=== PATIENT | female | born 1980 | race Caucasian/White ===

== ENCOUNTER 2017-02-04 19:32 | Emergency (ER) | payer BC, OTHER ==
[~2017-02-04] VITALS: Ht 170.2 cm; Wt 63.9 kg
[~2017-02-04 19:32] MED LIST: ACET-1256 PO; CLON2TAB3 PO; LOPE-41 PO; MTHI50 SQ; NRN300 PO; SERT-234 PO; [UNRECOGNIZED DRUG - CODE] PO
[2017-02-04 19:38] VITALS: TEMP 36.9; Ht 170.2 cm; Wt 63.9 kg
[2017-02-04 20:17] VITALS: O2SAT 95
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
[2017-02-04 20:34] LABS: PREG INTERNAL NEGATIVE QC NEG CLEAR BACKGROUND; PREG INTERNAL POSITIVE QC POS CONTROL LINE
[2017-02-04 20:45] LABS: BUN/CREATININE RATIO 10.3 (10-20); CALCIUM 8.6 mg/dl (8.5-10.1); CREATININE 0.51 mg/dl (0.60-1.20); POTASSIUM 3.7 mmol/L (3.5-5.1)
[2017-02-04] MEDS ORDERED: DIVA250T4 PO (21:36)
[2017-02-04] MEDS ORDERED: HYDR-5688 PO (21:36)
[2017-02-04] MEDS ORDERED: SULF500T2 PO (21:36)
[2017-02-04] MEDS ORDERED: METH1TAB81 PO (21:36)
[2017-02-04 23:37] VITALS: O2SAT 94
[2017-02-04 23:52] VITALS: PULSE 95
[2017-02-04 23:59] VITALS: BP 102/75
== END 2017-02-05 00:01 | disposition home or self-care (01) ==
LOC: EDBD 19:32 → C.EDB 19:36
DX: F10.129 Alcohol abuse with intoxication, unspecified (principal); G35 Multiple sclerosis; C91.11 Chronic lymphocytic leukemia of B-cell type in remission; F17.200 Nicotine dependence, unspecified, uncomplicated; L40.50 Arthropathic psoriasis, unspecified; Z79.899 Other long term (current) drug therapy

== ENCOUNTER → 2017-04-24 | Outpatient (CLI) | payer BC ==
[~2017-04-24] MED LIST changes: +DIVA250T4 PO; +HYDR-5688 PO; +METH1TAB81 PO; -MTHI50 SQ; -NRN300 PO; +SULF500T2 PO; -[UNRECOGNIZED DRUG - CODE] PO
[2017-04-24 14:35] LABS: BASO % 0.1 %; BASO ABS # 0.01 K/uL (0-0.2); EOS ABS # 0.08 K/uL (0-0.5); HEMATOCRIT 41.7 % (37-47); HEMOGLOBIN 14.3 g/dL (12.0-16.0); IG# 0.02 K/uL (0.00-0.02); LYMPH % 31.8 %; LYMPH ABS # 2.48 K/uL (1.2-3.4); MEAN CELL VOLUME 93.3 fL (80-100); MEAN CORPUSCULAR HGB CONC 34.3 g/dl (32-36); MEAN PLATELET VOLUME 9.8 fL (7.4-10.4); MONO % 5.8 %; MONO ABS # 0.45 K/uL (0.11-0.59); NEUT ABS # 4.77 K/uL (1.4-6.5); PLATELET COUNT 310 K/uL (130-400); RED CELL DISTRIBUTION WIDTH CV 12.6 % (11.5-14.5); RED CELL DISTRIBUTION WIDTH SD 43.2 fL (36.4-46.3); WHITE BLOOD COUNT 7.81 K/uL (4.8-10.8)
[2017-04-24 15:01] LABS: ALT/SGPT 46 U/L (12-78); AST/SGOT 34 U/L (15-37); BLOOD UREA NITROGEN 7 mg/dl (7-18); CALCIUM 8.7 mg/dl (8.5-10.1); CARBON DIOXIDE 26 mmol/L (21-32); CREATININE 0.53 mg/dl (0.60-1.20); GLUCOSE 88 mg/dl (70-99); SODIUM 134 mmol/L (136-145)
[2017-04-24 15:07] LABS: ALBUMIN 3.8 gm/dl (3.4-5.0); TOTAL PROTEIN 7.5 gm/dl (6.4-8.2)
[2017-04-24 15:11] LABS: TRANSFERRIN 323 mg/dl (200-360)
== END | disposition home or self-care (01) ==
LOC: C.LAB 13:09
DX: M19.90 Unspecified osteoarthritis, unspecified site (principal); F39 Unspecified mood [affective] disorder; R53.83 Other fatigue; E83.52 Hypercalcemia; G35 Multiple sclerosis; Z51.81 Encounter for therapeutic drug level monitoring; Z79.899 Other long term (current) drug therapy

== ENCOUNTER 2018-10-18 16:38 | Inpatient (IN) ==
--- NOTE | 2018-10-18 16:54 | History & Physical Report ---
Date of Service October 18, 2018 Assessment & Plan (1) Premature rupture of membranes: Patient is a 38 yo at 38.4 wks with PROM/ SROM at term No signs of labor FHR reassuring h/o cerebral aneurysm and desires primary Csection, signed the informed consent Lunch at 1230 ( debra), h/o MS, Scoliosis: discussed with Anesthesiologist, plan for Csection after 20:00, epidural if able, if not General anesthesia All questions were answered (2) Cerebral aneurysm: (3) Multiple sclerosis affecting : History of Present Illness Chief Complaint: Leaking Primary Care Provider: Raf Krueger Jr, DO Patient is a 38 yo at 38.4 wks who was originally scheduled for Primary Csection on 10/24 due to h/o Cerebral aneurysm She felt LOF around 1345 and then had large gush at 1430, has brayan celar and about 2 cups of fludi since then No ctxs/VB/ Fever/chills/ N&V/ HENRY/ Change in vision Her has been complicated by 1) h/o MS 2) Cerebral aneurysm: 1.1x1.3 cm 3) h/o scoliosis; plan for epidural or GA, can not have spinal block 4) GBS + 5) Anxiety She is grossly ruptured and being admitted for Primary Csection as planned She understands the risks signed the consent in the office on 10/16/18 Allergies Allergy/AdvReac Type Severity Reaction Status Date / Time glatiramer (copolymer 1) Allergy Intermediate hives and Verified 10/11/18 10:15 rash at injection site mannitol Allergy Intermediate hives and Verified 10/11/18 10:15 rash at injection site latex Allergy Unknown RASH Verified 10/11/18 10:15 Home Medications Home Medications Medication Instructions Recorded Confirmed Type [id number] oil 1 tab PO QAM 06/26/18 10/11/18 History [ Gummy] acetaminophen [Tylenol Extra 1,000 mg PO Q6H PRN 07/26/18 10/11/18 History Strength] Patient History Medical History Acid reflux worsening with Anxiety History of tuberculosis "childhood" - cervical lymph nodes removed; per patient, retesting subsequently negative Intracranial aneurysm neurosurgery monitoring- "Cleared for delivery by whichever means the patient desires. No limitations" per neurosurgery 06/25/18 note but per patient, decision made for c/s to be safe Migraine Multiple sclerosis asymptomatic off medications currently; neurology monitoring Osteoarthritis Surgical History H/O colonoscopy History of open reduction and internal fixation (ORIF) procedure LEFT FIBULA [place] teeth extracted Family History Father Family history of diabetes mellitus Grandfather (Paternal) Family history of diabetes mellitus Uncle Family hx of colon cancer Grandmother (Maternal) Stomach cancer Social History Preferred Language: [place] Communication Ability: Effective Consultant Required: No Beliefs That Will Affect Care: None marital status: Single Current Living Situation: Significant Other Current Living Situation Comment: [place] and stepchildren (part-time) Feels Safe at Home: Yes Smoking Status: Former smoker Tobacco Type: cigarettes ; Second Hand Exposure: Yes (mom smoked) ; Hx Alcohol Use: No Hx Substance Use: No OB History 7 months IUFD MOLD BUILDER History No h/o STD Review of Systems All systems reviewed & are unremarkable except as noted in HPI & below Physical Exam Gastrointestinal (Abdomen): normal bowel sounds, soft, nontender, no hepatosplenomegaly Percussion/Palpation: abdomen soft Abd: soft, nt, gravid Genitourinary: Grossly ruptured Cervix: closed, 50%, -3 Monitoring External Monitor 130's reactive Tocodynamometer Mild irregular ctxs, she does not feel them
[2018-10-18] MEDS ORDERED: CITRIC ACID/SODIUM CITRATE 15 ML UDC PO STA (16:59)
[2018-10-18] MEDS ORDERED: LACTATED RINGER'S 1,000 ML IV SCH ×2 (17:00→22:45)
[2018-10-18] MEDS ORDERED: CEFAZOLIN 2000MG 2,000 MG/15 ML SYR IV SCH (17:00)
[2018-10-18 17:31] LABS: Basophils # (auto) 0.01 K/uL (0-0.2); Basophils % (auto) 0.1 %; Eosinophils # (auto) 0.09 K/uL (0-0.5); Hematocrit (blood only) 33.3 % (37-47); Hemoglobin 11.7 g/dL (12.0-16.0); Immature Granulocytes # (auto) 0.02 K/uL (0.00-0.02); Immature Granulocytes % (auto) 0.2 %; Lymphocytes # (auto) 1.75 K/uL (1.2-3.4); Mean Corpuscular Volume 91.5 fL (80-100); Mean Platelet Volume 11.1 fL (7.4-10.4); Monocytes # (auto) 0.62 K/uL (0.11-0.59); Monocytes % (auto) 7.1 %; Neutrophils # (auto) 6.27 K/uL (1.4-6.5); Neutrophils % (auto) 71.6 %; Platelet Count 200 K/uL (130-400); RDW Coefficient of Variation 12.9 % (11.5-14.5); RDW Standard Deviation 43.2 fL (36.4-46.3); Red Blood Count 3.64 M/uL (4.2-5.4); White Blood Count 8.76 K/uL (4.8-10.8)
[2018-10-18 17:37] LABS: Mean Corpuscular Hgb Conc 35.1 g/dL (32-36)
[2018-10-18] MEDS ORDERED: LABETALOL HCL 100 MG TAB PO STA (17:41)
[2018-10-18 17:47] LABS: Alanine Aminotransferase 12 U/L (12-78); Albumin Level 2.3 gm/dl (3.4-5.0); Aspartate Aminotransferase 12 U/L (15-37); BUN Creatinine Ratio 12.7 (10-20); Blood Urea Nitrogen 5 mg/dl (7-18); Calcium 8.9 mg/dl (8.5-10.1); Carbon Dioxide 25 mmol/L (21-32); Chloride 107 mmol/L (98-107); Est GFR (African American) 149.6; Est GFR (Non-African American) 129.1; Glucose 111 mg/dl (70-99); Potassium 3.4 mmol/L (3.5-5.1); Sodium 140 mmol/L (136-145)
[2018-10-18 17:50] LABS: Albumin Globulin Ratio 0.7 (0.9-2); Alkaline Phosphatase 69 U/L (45-117); Bilirubin,Total 0.3 mg/dl (0.2-1); Globulin 3.5 gm/dl (2.5-4.0); Total Protein 5.8 gm/dl (6.4-8.2)
[2018-10-18] MEDS: LACTATED RINGER'S 1,000 ML IV SCH ×3 (18:14→21:02)
--- NOTE | 2018-10-18 18:24 | Anesthesiology Consultation ---
Date of Service October 18, 2018 Assessment & Plan Chart Review Chart Review: Acceptable Risk for Surgery, Acceptable Risk for Labor Epidural and Patient seen in Pre Admission Testing Consults Requested none ASA ASA3 Proposed Anesthesia Anesthesia Type: General and MAC Epidural Risk / Benefits Reviewed With: PT / POA / Parent / Guardian, Accepts Plan and Informed Consent Obtained History Height/Weight Height: 5 ft 7 in Weight: 87.543 kg Allergies Allergy/AdvReac Type Severity Reaction Status Date / Time glatiramer (copolymer 1) Allergy Intermediate hives and Verified 10/11/18 10:15 rash at injection site latex Allergy Intermediate RASH Verified 10/18/18 17:07 mannitol Allergy Intermediate hives and Verified 10/11/18 10:15 rash at injection site Medications Home Medications Medication Instructions Recorded Confirmed Last Taken [id number] oil 1 tab PO QAM 06/26/18 10/18/18 10/18/18 09:00 [ Gummy] Active Medications Generic Name Dose Route Start Last Admin Trade Name Freq PRN Reason Stop Dose Admin Lactated Ringer's 1,000 mls @ 150 mls/hr 10/18/18 17:49 10/18/18 18:14 Lr IV 11/17/18 17:48 150 mls/hr .[id number] LAURA Administration NPO Date Last Intake of Fluids: 10/18/18 Time Last Intake of Fluids: 16:00 Date Last Intake of Solids: 10/18/18 Time Last Intake of Solids: 12:30 Past Medical History Medical History Hx MRSA infection cultures negative as of last week PCOS (polycystic ovarian syndrome) Acid reflux worsening with Anxiety currently off meds; wants to start them again PP after ; was on Klonopin and Zoloft History of tuberculosis "childhood" - cervical lymph nodes removed; per patient, retesting subsequently negative Intracranial aneurysm neurosurgery monitoring- "Cleared for delivery by whichever means the patient desires. No limitations" per neurosurgery 06/25/18 note but per patient, decision made for c/s to be safe Migraine Multiple sclerosis asymptomatic off medications currently; neurology monitoring : diagnosed 9 years ago Osteoarthritis Exercise / Class Metabolic Activity III < 4 Walking/Shop/Light housework Past Family History Family History Father Family history of diabetes mellitus Grandfather (Paternal) Family history of diabetes mellitus Uncle Family hx of colon cancer Grandmother (Maternal) Stomach cancer Past Surgical History Surgical History H/O colonoscopy History of open reduction and internal fixation (ORIF) procedure LEFT FIBULA [place] teeth extracted Past Anesthesia History No Hx of Anesthesia Complications and No Family Hx of Anesthesia Complications History of PONV No Hx of PONV and No Hx of Motion Sickness Social History Smoking Status: Former smoker tobacco type: cigarettes Hx Alcohol Use: No Hx Substance Use: No substance use type: does not use Physical Exam Vital Signs Last Vital Signs Temp 37.0 C 10/18/18 17:25 Pulse 92 H 10/18/18 18:15 Resp 20 10/18/18 17:25 BP 140/94 10/18/18 18:15 Constitutional + obese ENMT Mouth: no dentition abnormality Thyromental Distance: < 3.5 Finger Breadths Mallampati Class: II Neck normal visual inspection and trachea midline; neck extension not limited Respiratory normal respiratory effort Auscultation: lungs clear to auscultation bilaterally Cardiovascular Rate/Rhythm: regular rate and regular rhythm Heart Sounds: no murmur Musculoskeletal Spine: lumbar spine normal to inspection; normal cervical ROM Neurologic moves all extremities Motor/Sensory: + sensory deficit (? paresthesias in the fingers) Psychiatric Orientation: alert and oriented x 3 Testing Laboratory Results 10/18/18 17:07 10/18/18 17:07
[2018-10-18] MEDS ORDERED: CITRIC ACID/SODIUM CITRATE 15 ML UDC ONE (19:27)
[2018-10-18] MEDS ORDERED: fentaNYL citrate 100 MCG/2 ML VIAL ONE (19:30)
[2018-10-18] MEDS ORDERED: OXYTOCIN 10 UNITS/ML VIAL ONE ×2 (20:37→22:08)
[2018-10-18] MEDS ORDERED: PHENYLEPHRINE 100MCG/ML 5ML SYR ONE (21:42)
[2018-10-18] MEDS ORDERED: LIDOCAINE/EPINEPHRINE 2% 1:200,000 20 ML SDV ONE (21:42)
[2018-10-18] MEDS ORDERED: MoRPHine SULFATE PF 1 MG/ML 10 ML AMP/VIAL ONE (22:01)
[2018-10-18] MEDS ORDERED: ONDANSETRON INJ 2 MG/ML 2 ML VIAL ONE (22:18)
[2018-10-18] MEDS ORDERED: DEXAMETHASONE SOD INJ 4 MG/ML VIAL ONE (22:19)
[2018-10-18] MEDS ORDERED: MIDAZOLAM HCL 1 MG/ML 2ML VIAL ONE (22:20)
[2018-10-18] MEDS ORDERED: BENZOCAINE 20% AER SPR 82.5 GM CAN EXT PRN (22:42)
[2018-10-18] MEDS ORDERED: DIPHTHERIA/TETANUS/PERTUSSIS 0.5 ML SYR/VIAL IM ONE (22:42)
[2018-10-18] MEDS ORDERED: MAGNESIUM HYDROXIDE SUSP 30 ML UDC PO PRN (22:42)
[2018-10-18] MEDS ORDERED: HYDROCORTISONE ACETATE 25 MG SUPP PR PRN (22:42)
[2018-10-18] MEDS ORDERED: MEASLES, MUMPS & RUBELLA VIRUS VIAL SQ ONE (22:42)
[2018-10-18] MEDS ORDERED: SUPERCREAM 0.870% 15 GM JAR EXT PRN (22:42)
[2018-10-18] MEDS ORDERED: SENNA 8.6 MG TAB PO PRN (22:42)
[2018-10-18] MEDS ORDERED: MoRPHine SULFATE PF 1 MG/ML 10 ML AMP/VIAL INT SPINAL ONE (22:49)
[2018-10-18] MEDS ORDERED: NALOXONE HCL 0.08 MG in SYRINGE 1.8 ML IV PRN (22:49)
[2018-10-18] MEDS ORDERED: KETOROLAC 30 MG/ML VIAL IV PRN (22:49)
[2018-10-18] MEDS ORDERED: NALBUPHINE HCL INJ 10 MG/ML AMP IV PRN (22:49)
[2018-10-18] MEDS ORDERED: ONDANSETRON INJ 2 MG/ML 2 ML VIAL IV PRN (22:49)
[2018-10-18] MEDS ORDERED: KETOROLAC 30 MG/ML VIAL ONE (22:49)
[2018-10-18] MEDS ORDERED: PROMETHAZINE HCL 25 MG in SODIUM CHLORIDE 0.9% 50 ML IV PRN (22:49)
[2018-10-18] MEDS ORDERED: LACTATED RINGER'S 500 ML IV PRN (22:49)
[2018-10-18] MEDS ORDERED: ePHEDrine sulfate 50 MG/ML AMP IV PRN (22:49)
[2018-10-18] MEDS ORDERED: NALOXONE HCL 1 MG in SODIUM CHLORIDE 0.9% 1000ML 1,000 ML IV PRN (22:49)
[2018-10-18] MEDS ORDERED: NALOXONE HCL 0.4 MG/1 ML VIAL/CARP IV PRN (22:49)
[2018-10-18] MEDS ORDERED: DiphenhydrAMINE HCL 50 MG/ML VIAL IV PRN (22:49)
[2018-10-18] MEDS ORDERED: HYDROmorphone INJ 0.5 MG/0.5 ML SYR IV PRN (22:49)
--- NOTE | 2018-10-18 22:52 | Anesthesia Procedure Note ---
Date of Service October 18, 2018 Anesthesia Post Epidural Note Vital Signs Vital Signs: Temp Pulse Resp BP Pulse Ox 37.1 C 83 20 141/77 H 90 10/18/18 21:10 10/18/18 22:49 10/18/18 21:10 10/18/18 22:47 10/18/18 22:49 Notes Mental Status: alert / awake / arousable Nausea / Vomiting: adequately controlled Pain: adequately controlled Airway Patency, RR, SpO2: stable & adequate BP & HR: stable & adequate Hydration State: stable & adequate Neuraxial Anesthesia: was administered and sensory block is resolving Anesthetic Complications: no major complications apparent Epidural: Removed without complications and With tip intact
--- NOTE | 2018-10-18 22:53 | Post Operative Brief Note ---
Immediate Post Op Note v1 Date of Surgery October 18, 2018 Pre & Post Diagnosis Operation Date: 10/18/18 20:30 Pre-Op Diagnosis: Cerebral Aneurysm; Patient desires Primary Electice Caesarean Section Post-Op Diagnosis: Same; Delivery of a live female child at 2157 Procedure Operation Date: 10/18/18 20:30 Actual Procedures p Section in LD - Jhonny Alonzo MD Surgeon Jhonny Alonzo MD Veterinary Meat Inspector Dr. Reynolds Estimated Blood Loss 600 Findings Consistent with Post-Op Diagnosis Fluids 1600 ml lr Drains Anne Catheter Anesthesia Type Labor Epidural Complications none Disposition Accompanied Patient To Recovery: Yes Disposition: L&D Overlapping Procedure I was present for: the critical portions of procedure. (I was present for the entire procedure)
[2018-10-18] MEDS ORDERED: SODIUM CHLORIDE 0.9% 1000ML 1,000 ML IV SCH (23:00)
[2018-10-18] MEDS ORDERED: NO NARCOTICS OR SEDATIVES SCH (23:00)
[2018-10-18] MEDS ORDERED: DC INTRASPINAL MORPHINE SCH (23:00)
--- NOTE | 2018-10-19 00:09 | Anesthesiology Progress Note ---
Date of Service October 19, 2018 Anesthesia Post Procedure Vital Signs Vital Signs: Temp Pulse Resp BP Pulse Ox 10/19/18 00:06 78 98 10/19/18 00:01 71 98 10/18/18 23:56 81 97 10/18/18 23:51 74 99 10/18/18 23:50 74 16 99 10/18/18 23:49 77 140/83 10/18/18 23:46 82 97 10/18/18 23:41 82 98 10/18/18 23:40 77 16 140/83 10/18/18 23:38 141 H 236/123 H 10/18/18 23:36 80 96 10/18/18 23:31 80 98 10/18/18 23:30 77 18 140/83 10/18/18 23:27 79 157/84 H 10/18/18 23:26 81 98 10/18/18 23:21 80 98 10/18/18 23:20 82 16 98 10/18/18 23:18 81 167/87 H 10/18/18 23:16 79 98 10/18/18 23:11 78 99 10/18/18 23:10 82 18 98 10/18/18 23:07 80 144/83 H 10/18/18 23:06 80 99 10/18/18 23:01 84 98 10/18/18 23:00 82 16 98 10/18/18 22:57 72 147/76 H 10/18/18 22:56 75 99 10/18/18 22:51 74 100 10/18/18 22:50 36.6 C 18 10/18/18 22:49 83 90 10/18/18 22:47 80 141/77 H 10/18/18 22:46 83 99 10/18/18 21:28 93 H 145/84 H 10/18/18 21:26 95 H 141/83 H 10/18/18 21:24 93 H 155/87 H 98 10/18/18 21:22 95 H 146/87 H 10/18/18 21:20 93 H 140/88 10/18/18 21:19 94 H 97 10/18/18 21:18 85 161/95 H 10/18/18 21:16 90 152/97 H 10/18/18 21:14 92 H 155/93 H 98 10/18/18 21:12 87 159/92 H 10/18/18 21:10 37.1 C 88 20 153/90 H 10/18/18 21:09 90 98 10/18/18 21:08 90 158/91 H 10/18/18 21:06 91 H 152/99 H 10/18/18 21:04 91 H 172/103 H 99 10/18/18 21:01 92 H 169/96 H 10/18/18 20:59 93 H 99 10/18/18 20:54 116 H 96 10/18/18 20:52 108 H 91 10/18/18 20:49 105 H 99 10/18/18 20:44 99 H 97 10/18/18 20:27 89 144/83 H 10/18/18 20:13 88 143/90 H 10/18/18 19:57 88 148/89 H 10/18/18 19:42 88 141/86 H 10/18/18 19:27 90 142/87 H 10/18/18 19:13 86 150/83 H 10/18/18 18:58 87 146/85 H 10/18/18 18:42 91 H 139/95 10/18/18 18:15 92 H 140/94 10/18/18 17:54 90 152/90 H 10/18/18 17:39 92 H 154/92 H 10/18/18 17:25 37.0 C 95 H 20 188/95 H 10/18/18 17:24 95 H 188/95 H 10/18/18 16:54 90 166/89 H 10/18/18 16:39 37.0 C 20 Pain Intensity Bilateral Lower Abdomen: Pain Intensity: 1 Transfer of Care Handoff Completed per policy Notes Mental Status: alert / awake / arousable Nausea / Vomiting: adequately controlled Pain: adequately controlled Airway Patency, RR, SpO2: stable & adequate BP & HR: stable & adequate Hydration State: stable & adequate Neuraxial Anesthesia: was administered and sensory block is resolving Anesthetic Complications: no major complications apparent
[2018-10-19] MEDS: OXYTOCIN 20 UNITS in LACTATED RINGER'S 1,000 ML IV SCH ×2 (01:07→09:48)
[2018-10-19] MEDS ORDERED: LABETALOL HCL 100 MG TAB PO ONE (01:25)
[2018-10-19] MEDS: KETOROLAC 30 MG/ML VIAL IV PRN ×2 (04:53→16:26)
[2018-10-19 06:43] LABS: Eosinophils # (auto) 0.01 K/uL (0-0.5); Eosinophils % (auto) 0.1 %; Hematocrit (blood only) 29.2 % (37-47); Hemoglobin 10.1 g/dL (12.0-16.0); Immature Granulocytes # (auto) 0.05 K/uL (0.00-0.02); Immature Granulocytes % (auto) 0.4 %; Lymphocytes # (auto) 1.14 K/uL (1.2-3.4); Lymphocytes % (auto) 8.7 %; Mean Corpuscular Hgb Conc 34.6 g/dL (32-36); Mean Corpuscular Volume 90.7 fL (80-100); Mean Platelet Volume 11.2 fL (7.4-10.4); Monocytes # (auto) 0.52 K/uL (0.11-0.59); Neutrophils # (auto) 11.37 K/uL (1.4-6.5); Neutrophils % (auto) 86.8 %; Platelet Count 215 K/uL (130-400); RDW Coefficient of Variation 12.9 % (11.5-14.5); RDW Standard Deviation 42.7 fL (36.4-46.3); Red Blood Count 3.22 M/uL (4.2-5.4); White Blood Count 13.09 K/uL (4.8-10.8)
[2018-10-19] MEDS: SIMETHICONE 80 MG CHEW PO SCH ×3 (08:03→18:35)
[2018-10-19] MEDS: FERROUS SULFATE 325 MG TAB PO SCH (08:03)
[2018-10-19] MEDS: PRENATAL VITAMIN 1 TAB PO SCH (08:03)
[2018-10-19] MEDS: DOCUSATE SODIUM 100 MG CAP PO SCH ×2 (08:03→21:16)
[2018-10-19] MEDS: LABETALOL HCL 100 MG TAB PO SCH ×2 (08:30→21:16)
--- NOTE | 2018-10-19 09:50 | Operative Report ---
DATE OF OPERATION: 10/18/2018 PREOPERATIVE DIAGNOSES: The patient is a 38-year-old G2, P0-1-0-0 at 38 weeks and 4 days of gestation presenting with premature rupture of membranes, not in labor, who was originally scheduled for elective primary on 10/24/2018 due to personal history of cerebral aneurysm and multiple sclerosis, declines trial of labor. POSTOPERATIVE DIAGNOSES: The patient is a 38-year-old G2, P0-1-0-0 at 38 weeks and 4 days of gestation presenting with premature rupture of membranes, not in labor, who was originally scheduled for elective primary on 10/24/2018 due to personal history of cerebral aneurysm and multiple sclerosis, declines trial of labor. PROCEDURE: Primary low transverse with Pfannenstiel skin incision and delivery of a viable female infant. SURGEON: Jhonny Alonzo MD. ELECTRICAL ENGINEERING TECHNOLOGIST: Dr. Reynolds. ESTIMATED BLOOD LOSS: 600. ANESTHESIA: Epidural. ANESTHESIOLOGIST: Dr. Eric. FLUIDS: 1600 mL of lactated ringer. DRAINS: Anne catheter drained 50 mL of clear urine. COMPLICATIONS: None. FINDINGS: Baby was a viable female , delivered at 21:57 p.m. Apgars 9/9. Weight was 3405 grams. MATERNAL FINDINGS: Normal uterus, fallopian tubes and ovaries. DESCRIPTION OF PROCEDURE: The patient was taken to the Operating Room where epidural anesthesia was given without difficulty. It was bolused by Dr. Eric. She was placed in dorsal supine position with a leftward tilt. She was prepared and draped in usual sterile fashion and anesthesia was checked to be adequate and a Pfannenstiel skin incision was made and the incision was carried through to the underlying layer of fascia with the Bovie. Fascia was incised in the midline and incision was extended laterally with the help of Rosario scissors. The upper aspect of the fascial incision was then grasped with 2 Luana clamps, elevated. Underlying rectus muscles were dissected off bluntly and sharply with Rosario scissors. Rectus muscles and then the lower aspect of the fascial incision was then grasped with 2 Luana clamps, elevated. The underlying rectus muscles were dissected off sharply. Rectus muscles were in the midline. Peritoneum was identified, entered bluntly with fingers. Peritoneal incision was extended inferiorly and superiorly with good visualization of the bladder. Bladder blade was inserted. Vesicouterine peritoneum was identified, grasped with 2 pickups, entered sharply with Metzenbaum scissors. A bladder flap was created digitally and bladder blade was reinserted. Lower uterine segment was incised in transverse fashion. Incision was extended laterally with the help of Rosario scissors and then membranes were ruptured. Clear fluid was obtained. Baby's head was delivered without difficulty. Shoulders were delivered with minimal traction and then baby's mouth and nose were suctioned. Cord was clamped x2 and cut at 1 minute delay and baby was handed to the waiting pediatric team, Dr. Horton and then placenta was delivered manually as intact and complete. Uterus was exteriorized, cleared of all clots and debris. Incision was repaired with 0 Vicryl in a running locked fashion. Second imbricating layer was placed with 0 Vicryl in a running locked fashion and there was a bleeder in the middle of the incision. It was controlled with [id number] stitches x2. Excellent hemostasis was achieved. The cul-de-sac was irrigated with warm normal saline and suctioned. Uterus was returned to the abdomen. Pelvis was irrigated with warm normal saline and suctioned. Incision was checked to be again hemostatic. Then, the parietal peritoneum was reapproximated with 3-0 Vicryl in a running fashion. Rectus muscles were reapproximated with the same suture in a running fashion. Under fascia and rectus muscles were hemostatic. Rectus fascia was brought together with 0 Vicryl in a running fashion starting from both corners meeting in the midline and then subcuticular fat tissue was brought together with 3-0 Vicryl in a running fashion. Skin was closed with 4-0 Monocryl in a subcuticular fashion. The patient tolerated the procedure well. Sponge, lap, needle count was correct x3. No complications happened. I and Dr. Reynolds were present during whole procedure. The patient was taken to Labor and Delivery in stable condition. I attest to the content of the Intraoperative Record and any orders documented therein. Any exceptions are noted below. CHELSEY
--- NOTE | 2018-10-19 09:51 | Obstetrical Progress Note ---
Date of Service October 19, 2018 Assessment & Plan (1) delivery delivered: c/sec day #1 pt doing well continue post op day #1 care Subjective Ambulation: ambulating normally Voiding: no voiding problems Passing Gas:: Yes Diet Tolerance:: clear liquids Lochia:: Small Feeding Type:: breast feeding Review of Systems All systems reviewed & are unremarkable except as noted in HPI & below Physical Exam Constitutional WD/WN, vitals as above well developed and well nourished Eyes PERRL, conjunctivae normal, anicteric sclerae ENMT external ear and nose normal, oropharynx normal Neck trachea midline, no thyromegaly Respiratory normal respiratory effort, lungs clear to auscultation Cardiovascular RRR, no murmur, no edema Chest (Breasts) normal inspection/palpation of breasts Gastrointestinal (Abdomen) normal bowel sounds, soft, nontender, no hepatosplenomegaly Musculoskeletal no cyanosis or clubbing, extremities motor strength 5/5 Skin no rashes, warm and dry + incision (Clean,dry and intact) Neurologic patellar DTR's 2+ bilat, sensation intact Psychiatric A+Ox3, euthymic affect Genitourinary normal external appearance Lymphatic no cervical or axillary lymphadenopathy Results & Data Vital Signs (Past 12 Hours) Vital Signs Temp Pulse Pulse Pulse Resp BP BP 10/19/18 07:15 36.6 C 81 81 18 148/87 H 10/19/18 06:57 132/80 10/19/18 05:45 16 10/19/18 03:45 36.9 C 85 14 144/83 H 10/19/18 02:45 14 10/19/18 01:45 36.8 C 76 14 135/75 10/19/18 01:11 77 10/19/18 01:06 74 10/19/18 01:01 84 10/19/18 00:59 80 146/86 H 10/19/18 00:56 82 10/19/18 00:51 85 10/19/18 00:50 36.9 C 77 20 10/19/18 00:46 79 10/19/18 00:41 81 10/19/18 00:36 88 10/19/18 00:33 76 148/71 H 10/19/18 00:31 83 10/19/18 00:29 82 160/74 H 10/19/18 00:26 84 10/19/18 00:21 86 10/19/18 00:20 88 18 10/19/18 00:16 80 10/19/18 00:11 80 10/19/18 00:06 78 10/19/18 00:01 71 10/18/18 23:56 81 10/18/18 23:51 74 10/18/18 23:50 78 16 10/18/18 23:49 77 140/83 10/18/18 23:46 82 10/18/18 23:41 82 10/18/18 23:40 77 16 140/83 10/18/18 23:38 141 H 236/123 H 10/18/18 23:36 80 10/18/18 23:31 80 10/18/18 23:30 77 18 140/83 10/18/18 23:27 79 157/84 H 10/18/18 23:26 81 10/18/18 23:21 80 10/18/18 23:20 82 16 10/18/18 23:18 81 167/87 H 10/18/18 23:16 79 10/18/18 23:11 78 10/18/18 23:10 82 18 10/18/18 23:07 80 144/83 H 10/18/18 23:06 80 10/18/18 23:01 84 10/18/18 23:00 82 16 10/18/18 22:57 72 147/76 H 10/18/18 22:56 75 10/18/18 22:51 74 10/18/18 22:50 36.6 C 18 10/18/18 22:49 83 10/18/18 22:47 80 141/77 H 10/18/18 22:46 83 Pulse Ox 10/19/18 07:15 96 10/19/18 06:57 10/19/18 05:45 94 10/19/18 03:45 96 10/19/18 02:45 97 10/19/18 01:45 96 10/19/18 01:11 97 10/19/18 01:06 98 10/19/18 01:01 99 10/19/18 00:59 10/19/18 00:56 98 10/19/18 00:51 98 10/19/18 00:50 97 10/19/18 00:46 98 10/19/18 00:41 98 10/19/18 00:36 98 10/19/18 00:33 10/19/18 00:31 97 10/19/18 00:29 10/19/18 00:26 97 10/19/18 00:21 94 10/19/18 00:20 98 10/19/18 00:16 97 10/19/18 00:11 95 10/19/18 00:06 98 10/19/18 00:01 98 10/18/18 23:56 97 10/18/18 23:51 99 10/18/18 23:50 98 10/18/18 23:49 10/18/18 23:46 97 10/18/18 23:41 98 10/18/18 23:40 10/18/18 23:38 10/18/18 23:36 96 10/18/18 23:31 98 10/18/18 23:30 10/18/18 23:27 10/18/18 23:26 98 10/18/18 23:21 98 10/18/18 23:20 98 10/18/18 23:18 10/18/18 23:16 98 10/18/18 23:11 99 10/18/18 23:10 98 10/18/18 23:07 10/18/18 23:06 99 10/18/18 23:01 98 10/18/18 23:00 98 10/18/18 22:57 10/18/18 22:56 99 10/18/18 22:51 100 10/18/18 22:50 10/18/18 22:49 90 10/18/18 22:47 10/18/18 22:46 99
--- NOTE | 2018-10-19 14:26 | Anesthesiology Progress Note ---
Date of Service October 19, 2018 Anesthesia Post Procedure Vital Signs Vital Signs: Temp Pulse Pulse Pulse Pulse Resp BP 10/19/18 13:15 18 10/19/18 12:19 36.8 C 83 20 10/19/18 11:15 18 10/19/18 10:15 20 10/19/18 09:15 18 10/19/18 08:15 20 10/19/18 07:15 36.6 C 81 81 18 10/19/18 06:57 10/19/18 05:45 16 10/19/18 03:45 36.9 C 85 14 10/19/18 02:45 14 10/19/18 01:45 36.8 C 76 14 10/19/18 01:11 77 10/19/18 01:06 74 10/19/18 01:01 84 10/19/18 00:59 80 146/86 H 10/19/18 00:56 82 10/19/18 00:51 85 10/19/18 00:50 36.9 C 77 20 10/19/18 00:46 79 10/19/18 00:41 81 10/19/18 00:36 88 10/19/18 00:33 76 148/71 H 10/19/18 00:31 83 10/19/18 00:29 82 160/74 H 10/19/18 00:26 84 10/19/18 00:21 86 10/19/18 00:20 88 18 10/19/18 00:16 80 10/19/18 00:11 80 10/19/18 00:06 78 10/19/18 00:01 71 10/18/18 23:56 81 10/18/18 23:51 74 10/18/18 23:50 78 16 10/18/18 23:49 77 140/83 10/18/18 23:46 82 10/18/18 23:41 82 10/18/18 23:40 77 16 140/83 10/18/18 23:38 141 H 236/123 H 10/18/18 23:36 80 10/18/18 23:31 80 10/18/18 23:30 77 18 140/83 10/18/18 23:27 79 157/84 H 10/18/18 23:26 81 10/18/18 23:21 80 10/18/18 23:20 82 16 10/18/18 23:18 81 167/87 H 10/18/18 23:16 79 10/18/18 23:11 78 10/18/18 23:10 82 18 10/18/18 23:07 80 144/83 H 10/18/18 23:06 80 10/18/18 23:01 84 10/18/18 23:00 82 16 10/18/18 22:57 72 147/76 H 10/18/18 22:56 75 10/18/18 22:51 74 10/18/18 22:50 36.6 C 18 10/18/18 22:49 83 10/18/18 22:47 80 141/77 H 10/18/18 22:46 83 10/18/18 21:28 93 H 145/84 H 10/18/18 21:26 95 H 141/83 H 10/18/18 21:24 93 H 155/87 H 10/18/18 21:22 95 H 146/87 H 10/18/18 21:20 93 H 140/88 10/18/18 21:19 94 H 10/18/18 21:18 85 161/95 H 10/18/18 21:16 90 152/97 H 10/18/18 21:14 92 H 155/93 H 10/18/18 21:12 87 159/92 H 10/18/18 21:10 37.1 C 88 20 153/90 H 10/18/18 21:09 90 10/18/18 21:08 90 158/91 H 10/18/18 21:06 91 H 152/99 H 10/18/18 21:04 91 H 172/103 H 10/18/18 21:01 92 H 169/96 H 10/18/18 20:59 93 H 10/18/18 20:54 116 H 10/18/18 20:52 108 H 10/18/18 20:49 105 H 10/18/18 20:44 99 H 10/18/18 20:27 89 144/83 H 10/18/18 20:13 88 143/90 H 10/18/18 19:57 88 148/89 H 10/18/18 19:42 88 141/86 H 10/18/18 19:27 90 142/87 H 10/18/18 19:13 86 150/83 H 10/18/18 18:58 87 146/85 H 10/18/18 18:42 91 H 139/95 10/18/18 18:15 92 H 140/94 10/18/18 17:54 90 152/90 H 10/18/18 17:39 92 H 154/92 H 10/18/18 17:25 37.0 C 95 H 20 188/95 H 10/18/18 17:24 95 H 188/95 H 10/18/18 16:54 90 166/89 H 10/18/18 16:39 37.0 C 20 BP Pulse Ox 10/19/18 13:15 97 10/19/18 12:19 137/77 95 10/19/18 11:15 93 10/19/18 10:15 95 10/19/18 09:15 94 10/19/18 08:15 93 10/19/18 07:15 148/87 H 96 10/19/18 06:57 132/80 10/19/18 05:45 94 10/19/18 03:45 144/83 H 96 10/19/18 02:45 97 10/19/18 01:45 135/75 96 10/19/18 01:11 97 10/19/18 01:06 98 10/19/18 01:01 99 10/19/18 00:59 10/19/18 00:56 98 10/19/18 00:51 98 10/19/18 00:50 97 10/19/18 00:46 98 10/19/18 00:41 98 10/19/18 00:36 98 10/19/18 00:33 10/19/18 00:31 97 10/19/18 00:29 10/19/18 00:26 97 10/19/18 00:21 94 10/19/18 00:20 98 10/19/18 00:16 97 10/19/18 00:11 95 10/19/18 00:06 98 10/19/18 00:01 98 10/18/18 23:56 97 10/18/18 23:51 99 10/18/18 23:50 98 10/18/18 23:49 10/18/18 23:46 97 10/18/18 23:41 98 10/18/18 23:40 10/18/18 23:38 10/18/18 23:36 96 10/18/18 23:31 98 10/18/18 23:30 10/18/18 23:27 10/18/18 23:26 98 10/18/18 23:21 98 10/18/18 23:20 98 10/18/18 23:18 10/18/18 23:16 98 10/18/18 23:11 99 10/18/18 23:10 98 10/18/18 23:07 10/18/18 23:06 99 10/18/18 23:01 98 10/18/18 23:00 98 10/18/18 22:57 10/18/18 22:56 99 10/18/18 22:51 100 10/18/18 22:50 10/18/18 22:49 90 10/18/18 22:47 10/18/18 22:46 99 10/18/18 21:28 10/18/18 21:26 10/18/18 21:24 98 10/18/18 21:22 10/18/18 21:20 10/18/18 21:19 97 10/18/18 21:18 10/18/18 21:16 10/18/18 21:14 98 10/18/18 21:12 10/18/18 21:10 10/18/18 21:09 98 10/18/18 21:08 10/18/18 21:06 10/18/18 21:04 99 10/18/18 21:01 10/18/18 20:59 99 10/18/18 20:54 96 10/18/18 20:52 91 10/18/18 20:49 99 10/18/18 20:44 97 10/18/18 20:27 10/18/18 20:13 10/18/18 19:57 10/18/18 19:42 10/18/18 19:27 10/18/18 19:13 10/18/18 18:58 10/18/18 18:42 10/18/18 18:15 10/18/18 17:54 10/18/18 17:39 10/18/18 17:25 10/18/18 17:24 10/18/18 16:54 10/18/18 16:39 Pain Intensity Bilateral Lower Abdomen: Pain Intensity: 6 Transfer of Care Handoff Completed per policy Notes Mental Status: alert / awake / arousable Patient Amnestic to Procedure: Yes Nausea / Vomiting: adequately controlled Pain: adequately controlled Airway Patency, RR, SpO2: stable & adequate BP & HR: stable & adequate Hydration State: stable & adequate Anesthetic Complications: no major complications apparent and Pt Satisfied with anesthetic care
[2018-10-19] MEDS ORDERED: ONDANSETRON INJ 2 MG/ML 2 ML VIAL IV PRN (16:50)
[2018-10-19] MEDS ORDERED: DiphenhydrAMINE HCL 50 MG/ML VIAL IV PRN (16:50)
[2018-10-19] MEDS ORDERED: PROMETHAZINE HCL 25 MG in SODIUM CHLORIDE 0.9% 50 ML IV PRN (16:50)
[2018-10-19] MEDS ORDERED: MEPERIDINE HCL 50 MG/ML CARP IV PRN (16:50)
[2018-10-19] MEDS ORDERED: FLUCONAZOLE 100 MG TAB PO ONE (18:30)
[2018-10-19] MEDS ORDERED: ZOLPIDEM TARTRATE 10 MG TAB PO PRN (18:48)
[2018-10-19] MEDS ORDERED: BISACODYL 5 MG TABEC PO SCH (20:00)
[2018-10-19] MEDS: OXYCODONE/ACETAMINOPHEN 5mg/325mg TAB PO PRN (21:16)
[2018-10-19] MEDS: IBUPROFEN 600 MG TAB PO PRN (21:17)
[2018-10-20] MEDS: OXYCODONE/ACETAMINOPHEN 5mg/325mg TAB PO PRN ×4 (02:18→20:46)
[2018-10-20] MEDS: IBUPROFEN 600 MG TAB PO PRN ×4 (02:19→20:46)
[2018-10-20 06:28] LABS: Hemoglobin 7.8 g/dL (12.0-16.0)
[2018-10-20] MEDS: PRENATAL VITAMIN 1 TAB PO SCH (08:01)
[2018-10-20] MEDS: LABETALOL HCL 100 MG TAB PO SCH ×2 (08:02→20:45)
[2018-10-20] MEDS: FERROUS SULFATE 325 MG TAB PO SCH (08:02)
[2018-10-20] MEDS: SIMETHICONE 80 MG CHEW PO SCH ×4 (08:02→20:44)
[2018-10-20] MEDS: DOCUSATE SODIUM 100 MG CAP PO SCH ×2 (08:02→20:45)
--- NOTE | 2018-10-20 10:45 | Obstetrical Progress Note ---
Date of Service October 20, 2018 Assessment & Plan (1) delivery delivered: Pt doing well c/sec day #2 anticipate disch tomorrow Results & Data Vital Signs (Past 12 Hours) Vital Signs Temp Pulse Resp BP Pulse Ox 10/20/18 07:15 36.8 C 88 20 135/83 10/20/18 00:35 36.8 C 91 H 18 138/87 95
[2018-10-20 13:10] LABS: Hematocrit (blood only) 24.4 % (37-47); Hemoglobin 8.3 g/dL (12.0-16.0)
[2018-10-20] MEDS ORDERED: BISACODYL 10 MG SUPP PR PRN (22:42)
[2018-10-21] MEDS: IBUPROFEN 600 MG TAB PO PRN ×4 (00:12→12:32)
[2018-10-21] MEDS: OXYCODONE/ACETAMINOPHEN 5mg/325mg TAB PO PRN ×4 (00:14→12:31)
--- NOTE | 2018-10-21 08:08 | Surgery Progress Note ---
Date of Service October 21, 2018 Subjective doing well out of bed tolerating diet passing gas Physical Exam Constitutional: WD/WN, vitals as above comfortable incision clean dry and intact no edema neg Rosario's for discharge Results & Data Vital Signs (Past 12 Hours) Vital Signs Temp Pulse Resp BP Pulse Ox 10/21/18 03:40 36.6 C 95 H 16 128/76 95 10/20/18 20:30 36.8 C 97 H 18 131/83 97 Laboratory Results Laboratory Results - last 72 hr 10/18/18 10/18/18 10/18/18 17:07 17:07 17:07 WBC 8.76 RBC 3.64 L Hgb 11.7 L Hct 33.3 L MCV 91.5 MCH 32.1 MCHC 35.1 RDW Std Deviation 43.2 RDW Coeff of Latoya 12.9 Plt Count 200 MPV 11.1 H Immature Gran % (Auto) 0.2 Neut % (Auto) 71.6 Lymph % (Auto) 20.0 [place] % (Auto) 7.1 Eos % (Auto) 1.0 Baso % (Auto) 0.1 Immature Gran # (Auto) 0.02 Neut # (Auto) 6.27 Lymph # (Auto) 1.75 [place] # (Auto) 0.62 H Eos # (Auto) 0.09 Baso # (Auto) 0.01 Sodium 140 Potassium 3.4 L Chloride 107 Carbon Dioxide 25 Anion Gap 7.0 BUN 5 L Creatinine 0.42 L Est Cr Clr Drug Dosing Not Reportable Est GFR ( Amer) 149.6 Est GFR (Non-Af Amer) 129.1 BUN/Creatinine Ratio 12.7 Glucose 111 H Calcium 8.9 Total Bilirubin 0.3 AST 12 L ALT 12 Alkaline Phosphatase 69 Total Protein 5.8 L Albumin 2.3 L Globulin 3.5 Albumin/Globulin Ratio 0.7 L Blood Type A Positive Antibody Screen NEGATIVE 10/19/18 10/20/18 10/20/18 06:05 05:54 13:00 WBC 13.09 H RBC 3.22 L Hgb 10.1 L 7.8 L 8.3 L Hct 29.2 L 23.0 L 24.4 L MCV 90.7 MCH 31.4 MCHC 34.6 RDW Std Deviation 42.7 RDW Coeff of Latoya 12.9 Plt Count 215 MPV 11.2 H Immature Gran % (Auto) 0.4 Neut % (Auto) 86.8 Lymph % (Auto) 8.7 [place] % (Auto) 4.0 Eos % (Auto) 0.1 Baso % (Auto) 0.0 Immature Gran # (Auto) 0.05 H Neut # (Auto) 11.37 H Lymph # (Auto) 1.14 L [place] # (Auto) 0.52 Eos # (Auto) 0.01 Baso # (Auto) 0.00 Sodium Potassium Chloride Carbon Dioxide Anion Gap BUN Creatinine Est Cr Clr Drug Dosing Est GFR ( Amer) Est GFR (Non-Af Amer) BUN/Creatinine Ratio Glucose Calcium Total Bilirubin AST ALT Alkaline Phosphatase Total Protein Albumin Globulin Albumin/Globulin Ratio Blood Type Antibody Screen
[2018-10-21] MEDS: FERROUS SULFATE 325 MG TAB PO SCH (08:41)
[2018-10-21] MEDS: DOCUSATE SODIUM 100 MG CAP PO SCH (08:41)
[2018-10-21] MEDS: PRENATAL VITAMIN 1 TAB PO SCH (08:41)
[2018-10-21] MEDS: SIMETHICONE 80 MG CHEW PO SCH ×2 (08:41→12:30)
[2018-10-21] MEDS: LABETALOL HCL 100 MG TAB PO SCH (08:45)
--- NOTE | 2018-10-24 23:25 | Discharge Summary ---
DETAILS OF ADMISSION: The patient is a 38-year-old G2, P0-1-0-0 at 38 weeks and 4 days of gestation, who was scheduled for an elective on 10/24/2018. She presented to labor and delivery on 10/18/2018 with spontaneous rupture of membrane and no signs of labor and she has a history of cerebral aneurysm which was concerning for rupture, so she desired primary . Signed informed consent. See dictated H and P for details. She delivered a viable female infant on 10/18/2018 at 2157 hours. Her surgery was uncomplicated. See dictated op note for details. On postop period, the patient was doing well. Vital signs stable, afebrile. On postop day #1, her Anne was discontinued. She was ambulated, advanced to regular diet. Vital signs stable, afebrile. Physical exam was unremarkable. Incision was clean, dry, and intact. She was passing gas and . On postop day #2, the patient was doing well. Vital signs stable, afebrile, ambulating, tolerating regular diet. Her H and H was 10.1/29.2 and then repeat Hb was 7.8 and then the repeat was 8.3/24.4 and stable. On postop day #3, the patient was doing well. Vital signs stable, afebrile. Physical exam was unremarkable. The incision was clean, dry and intact. Extremities are nontender, no edema. She was discharged on postoperative day #3. Discharge instructions were given, when to call. Prescriptions were written for pain. She is to be seen in the office in a week for incision check. CHELSEY
== END 2018-10-21 14:12 | disposition home or self-care (01) | DRG 786 ==
LOC: OPB 16:38 → 4S1 16:39 → 4S2 10-19 01:15
DX: O99.824 Streptococcus B carrier state complicating childbirth; O26.893 Other specified pregnancy related conditions, third trimester; O42.92 Full-term premature rupture of membranes, unspecified as to length of time between rupture and onset of labor; Z3A.38 38 weeks gestation of pregnancy; Z88.8 Allergy status to other drugs, medicaments and biological substances; I67.1 Cerebral aneurysm, nonruptured; G35 Multiple sclerosis; O99.42 Diseases of the circulatory system complicating childbirth; Z87.891 Personal history of nicotine dependence; Z87.59 Personal history of other complications of pregnancy, childbirth and the puerperium; Z37.0 Single live birth; Z91.040 Latex allergy status; O99.354 Diseases of the nervous system complicating childbirth; M41.9 Scoliosis, unspecified

== ENCOUNTER 2022-10-08 22:11 | Observation (INO) ==
[2022-10-08] MEDS ORDERED: IOVERSOL 350 MG 125mL Prefilled Syringe IV ONE (22:24)
--- NOTE | 2022-10-08 22:30 | Emergency Department Note ---
Impression & Plan Stroke-like symptoms, Headache, migraine, Chest pain ED Provider Note NAME: KENTON HARVEY AGE: 42 SEX: F : 1980 ARRIVES VIA: Ambulance INFORMANT: Patient, EMS ED PROVIDER(S): Andrew Kimble DO CHIEF COMPLAINT: Chest pain HPI: The patient is a 42-year-old female who presented to the emergency department for an evaluation of chest pain. The patient describes chest pain which went to her neck as well as her upper chest. The patient called 911. She has a history of cerebral aneurysm repair in the past. The patient states that she had a fall earlier this week. She states that she did strike her head. She had no headache until prior to arrival when she developed a very severe left- sided headache. The patient had some nausea. She was not given aspirin prior to arrival. The patient denies having any fever. She denies having any abdominal pain. She did note left-sided weakness which was noticed also by the prehospital personnel. The patient was made a stroke alert upon arrival. ROS: See above HPI for pertinent positives & negatives. A total of 10 systems reviewed and were otherwise negative. PAST MEDICAL HISTORY: See Below PAST SURGICAL HISTORY: See Below FAMILY HISTORY: See Below SOCIAL HISTORY: See Below HOME MEDICATIONS: See Below ALLERGIES: See Below VITALS: See Below PHYSICAL EXAMINATION: GENERAL: The patient is awake and alert. She appears somewhat anxious and uncomfortable. EYES: The conjunctivae are clear. The pupils are round and reactive. EARS, NOSE, MOUTH AND THROAT: The nose is without any evidence of any deformity. NECK: The neck is nontender and supple. RESPIRATORY: Normal respiratory effort is noted there is no evidence of wheezing rhonchi or rales CARDIOVASCULAR: Regular rate and rhythm noted there no murmurs rubs or gallops normal S1 normal S2. GASTROINTESTINAL: The abdomen is soft. Abdomen is nontender. MUSCULOSKELETAL/EXTREMITIES: There is no evidence of gross deformity full range of motion is noted in the hips and shoulders. SKIN: There is no obvious evidence of any rash. There are no petechiae, pallor or cyanosis noted. NEUROLOGIC: Patient is awake alert and oriented x3. Plant Hr Manager strength was diminished in the left upper extremity. The patient does have a drift in the left upper extremity. Speech is clear. There is no facial droop. Patient is having difficulty lifting the left leg off the bed. MEDICAL DECISION MAKING: The patient is a 42-year-old female who presented to the emergency department for an evaluation of strokelike symptoms. Initially the patient was having chest pain. She then started having neck pain and left-sided weakness. The patient relates that she has a history of a cerebral aneurysm. She also relates that she had a significant fall on Sunday. She states that she has had ongoing headache and intermittent episodes of neurologic symptoms ever since the fall. The patient was made a stroke alert after my initial evaluation for left- sided weakness. I discussed patient's laboratory and radiographic studies with her. The patient was evaluated by the telestroke neurologist from [facility]. I discussed her condition with the telestroke neurology group. The patient also had a CT angiography of the chest to rule out dissection. Ultimately she was not found to have any intracranial hemorrhage or mass, she was also found have no definite large vessel occlusion or abnormality on dissection study. Symptoms slowly improved in the emergency department. After discussion with the telestroke neurologist there was recommendation of further inpatient work-up. For this reason I discussed her case with the on-call [facility]ist. They have agreed to evaluate the patient in the emergency department for further management and disposition. The patient did note her blood pressure was very high prior to calling 911. She did take extra doses of her clonidine prior to calling 911. Triage Nursing notes reviewed. Prior medical records reviewed Vital Signs: reviewed and remarkable for no significant abnormalities Differential diagnosis: Infection, dehydration, metabolic abnormality, hypo/hyperglycemia, electrolyte disturbance, anemia, hypoxia, cardiac sources, intracerebral event, toxicologic, neurologic, as well as other pathologies. ER treatment provided: See below Diagnostics interpreted by me: ECG: EKG was obtained in the emergency department. My interpretation is normal sinus rhythm at 80 bpm. There was no ectopy. There was no acute ST segment abnormalities noted. This was compared to a tracing from June 16, 2020. No changes were noted. Cardiac Monitoring: An order was placed for continuous cardiac monitoring. The monitor shows a rate of 73 bpm with sinus rhythm. Laboratory studies: As stated above and show below. Imaging studies: See below. Radiographic imaging was reviewed by myself Consultation(s): I discussed this case with Dr. Aguillon who is on-call for teleneurology. I discussed this case with Dr Alcantara ED COURSE: Procedures: none Critical Care: I have personally spent greater than 35 minutes of critical care time in the direct management of this patient. This includes bedside care, interpretation of diagnostic studies, and testing, discussion with consultants, patient, and family members, and other required patient management activities. This 35 minutes is in excess of all separately billable procedures. Past Med/Surg History Medical History (Updated 10/09/22 @ 00:19 by Andrew Kimble DO) Acid reflux worsening with Anxiety currently off meds; wants to start them again PP after ; was on Klonopin and Zoloft History of tuberculosis "childhood" - cervical lymph nodes removed; per patient, retesting s ubsequently negative Hx MRSA infection cultures negative as of last week Intracranial aneurysm neurosurgery monitoring- "Cleared for delivery by whichever means the patient desires. No limitations" per neurosurgery 06/25/18 note but per patient, decision made for c/s to be safe Migraine Multiple sclerosis asymptomatic off medications currently; neurology monitoring : diagnosed 9 years ago Osteoarthritis PCOS (polycystic ovarian syndrome) Surgical History H/O colonoscopy History of open reduction and internal fixation (ORIF) procedure LEFT FIBULA [place] teeth extracted Family History Father Family history of diabetes mellitus Grandfather (Paternal) Family history of diabetes mellitus Uncle Family hx of colon cancer Grandmother (Maternal) Stomach cancer Social History Smoking Status: Former smoker Second Hand Exposure: Yes (mom smoked); Do You Dip or Chew Tobacco: No; Hx Alcohol Use: No Hx Substance Use: No Preferred Language: Irish Communication Ability: Effective Customer Technical Services Manager Required: No Beliefs That Will Affect Care: None marital status: Single Current Living Situation: Spouse Current Living Situation Comment: Arm[place] and stepchildren (part-time) Feels Safe at Home: Yes Assistive Devices: None Allergies Allergies Allergy/AdvReac Type Severity Reaction Status Date / Time glatiramer (copolymer 1) Allergy Intermediate hives and Verified 06/16/22 15:29 rash at injection site latex Allergy Intermediate RASH Verified 06/16/22 15:29 mannitol Allergy Intermediate hives and Verified 06/16/22 15:29 rash at injection site Home Meds Home Medications Medication Instructions Recorded Confirmed sertraline 100 mg tablet 100 mg PO HS 06/16/20 10/08/22 vitamin C 500 mg-multivitamin with 3 tab PO DAILY PRN Cold Symptoms 06/16/20 10/08/22 minerals chewable tablet (Emergen-C) clonidine HCl 0.1 mg tablet 0.1 mg PO HS 06/16/22 10/08/22 lisinopril 10 mg tablet 10 mg PO QAM 06/16/22 10/08/22 atorvastatin 40 mg tablet 40 mg PO HS 10/08/22 10/08/22 clonazepam 0.5 mg tablet See Rx Instructions .Route .COMPLEX 10/08/22 10/08/22 Previous Rx's Medication Instructions Recorded famotidine 20 mg tablet 20 mg PO BID #20 tabs 06/16/22 ondansetron 4 mg disintegrating 4 mg PO Q6H PRN nausea and 06/16/22 tablet vomiting #14 tabs Results & Data (ED) Vital Signs Vital Signs - 24 hr 10/08/22 22:14 10/08/22 22:14 10/08/22 22:14 Temperature 36.9 C Temperature Source Oral Pulse Rate 99 H Pulse Rate [Apical] 99 H Pulse Rate from SpO2 Sensor Pulse Rhythm Regular Pulse Rhythm [Apical] Regular Pulse Strength Normal Pulse Strength [Apical] Normal Respiratory Rate 16 16 Respiratory Effort / Characteristics Non-Labored Non-Labored Respiratory Depth Normal Normal Respiratory Pattern Regular Regular Blood Pressure 108/74 Blood Pressure [Right Arm] 108/74 Blood Pressure Mean 85 Blood Pressure Mean [Right Arm] 85 Blood Pressure Position Lying Pulse Oximetry 99 99 Oxygen Delivery Method Room Air Room Air Room Air Sepsis Recent Fever Within 48 Hours No Sepsis New/Unexplained Change in Mental Status No Sepsis Action Taken by Nursing No Action Required 10/08/22 22:30 10/08/22 22:32 10/08/22 22:37 Temperature Temperature Source Pulse Rate 99 H 92 H Pulse Rate [Apical] Pulse Rate from SpO2 Sensor Pulse Rhythm Pulse Rhythm [Apical] Pulse Strength Pulse Strength [Apical] Respiratory Rate 24 Respiratory Effort / Characteristics Respiratory Depth Respiratory Pattern Blood Pressure 103/70 Blood Pressure [Right Arm] Blood Pressure Mean 81 Blood Pressure Mean [Right Arm] Blood Pressure Position Pulse Oximetry Oxygen Delivery Method Sepsis Recent Fever Within 48 Hours Sepsis New/Unexplained Change in Mental Status Sepsis Action Taken by Nursing 10/08/22 22:37 10/08/22 23:00 10/08/22 23:15 Temperature Temperature Source Pulse Rate 87 85 77 Pulse Rate [Apical] Pulse Rate from SpO2 Sensor 88 Pulse Rhythm Pulse Rhythm [Apical] Pulse Strength Pulse Strength [Apical] Respiratory Rate 17 17 16 Respiratory Effort / Characteristics Respiratory Depth Respiratory Pattern Blood Pressure 108/62 Blood Pressure [Right Arm] Blood Pressure Mean 77 Blood Pressure Mean [Right Arm] Blood Pressure Position Pulse Oximetry 96 95 96 Oxygen Delivery Method Room Air Room Air Sepsis Recent Fever Within 48 Hours Sepsis New/Unexplained Change in Mental Status Sepsis Action Taken by Nursing 10/08/22 23:30 10/08/22 23:45 10/09/22 00:00 Temperature Temperature Source Pulse Rate 82 68 73 Pulse Rate [Apical] Pulse Rate from SpO2 Sensor Pulse Rhythm Pulse Rhythm [Apical] Pulse Strength Pulse Strength [Apical] Respiratory Rate 12 22 17 Respiratory Effort / Characteristics Respiratory Depth Respiratory Pattern Blood Pressure 100/63 103/61 100/61 Blood Pressure [Right Arm] Blood Pressure Mean 75 75 74 Blood Pressure Mean [Right Arm] Blood Pressure Position Pulse Oximetry 94 97 96 Oxygen Delivery Method Room Air Room Air Room Air Sepsis Recent Fever Within 48 Hours Sepsis New/Unexplained Change in Mental Status Sepsis Action Taken by Half-Way Medications Current Medication List: was personally reviewed by me Laboratory Data Attestation: I reviewed the patient's lab results. 10/08/22 22:33 10/08/22 22:33 Lab Results 10/08/22 10/08/22 10/08/22 Range/Units 22:33 22:33 22:33 WBC 5.25 (4.8-10.8) K/ul RBC 3.68 L (4.20-5.40) M/uL Hgb 11.7 L (12.0-16.0) g/dl Hct 34.0 L (37.0-47.0) % MCV 92.4 (80.0-100.0) fL MCH 31.8 (25.0-34.0) pg MCHC 34.4 (32.0-36.0) g/dL RDW Std Deviation 38.9 (36.4-46.3) fL RDW Coeff of Latoya 11.5 (11.5-14.5) % Plt Count 239 (130-400) K/uL MPV 10.0 (9.4-12.4) fL Immature Gran % (Auto) 0.0 % Neut % (Auto) 49.5 % Lymph % (Auto) 37.3 % [place] % (Auto) 8.2 % Eos % (Auto) 4.6 % Baso % (Auto) 0.4 % Neut # (Auto) 2.60 (1.40-6.50) K/uL Lymph # (Auto) 1.96 (1.20-3.40) K/uL [place] # (Auto) 0.43 (0.11-0.59) K/uL Eos # (Auto) 0.24 (0.00-0.50) K/uL Baso # (Auto) 0.02 (0.00-0.20) K/uL Immature Gran # (Auto) 0.00 L (0.01-0.20) K/uL PT 10.9 (9.0-12.0) Seconds INR 1.0 (0.9-1.1) APTT 22.9 (21.0-31.0) Seconds PTT Ratio 0.8 Sodium 135 L (136-145) mmol/L Potassium 3.8 (3.5-5.1) mmol/L Chloride 107 (98-107) mmol/L Carbon Dioxide 22 (21-32) mmol/L Anion Gap 6 (3-11) BUN 14 (6-23) mg/dl Creatinine 0.45 L (0.6-1.2) mg/dl Est Cr Clr Drug Dosing 184.6 ml/min Est GFR ( Amer) 142.2 ml/min Est GFR (Non-Af Amer) 122.7 ml/min BUN/Creatinine Ratio 31.1 H (10-20) Glucose 131 H (70-99(Fasting)) mg/dl Calcium 8.1 L (8.6-10.3) mg/dl Magnesium 1.7 (1.7-2.4) mg/dl Total Bilirubin 0.3 (0.2-1.0) mg/dl AST 19 (13-39) U/L ALT 22 (7-52) U/L Alkaline Phosphatase 36 (34-104) U/L Troponin I High Sens < 2.3 (0-14) pg/ml Total Protein 5.4 L (6.0-8.3) gm/dl Albumin 3.4 (3.4-5.0) gm/dl Globulin 2.0 L (2.5-4.0) gm/dl Albumin/Globulin Ratio 1.7 (0.9-2) Urine Color Urine Appearance (Clear) Urine pH (4.5-7.5) Ur Specific [place] (1.000-1.030) Urine Protein (Negative) Urine Glucose (UA) (Negative) Urine Ketones (Negative) Urine Blood (Negative) Urine Nitrite (Negative) Urine Bilirubin (Negative) Urine Urobilinogen (Negative) Ur Leukocyte Esterase (Negative) POC Ur Test (NEG) Ethyl Alcohol mg/dL (<10.0) mg/dl 10/08/22 10/08/22 10/08/22 Range/Units 23:13 23:23 23:23 WBC (4.8-10.8) K/ul RBC (4.20-5.40) M/uL Hgb (12.0-16.0) g/dl Hct (37.0-47.0) % MCV (80.0-100.0) fL MCH (25.0-34.0) pg MCHC (32.0-36.0) g/dL RDW Std Deviation (36.4-46.3) fL RDW Coeff of Latoya (11.5-14.5) % Plt Count (130-400) K/uL MPV (9.4-12.4) fL Immature Gran % (Auto) % Neut % (Auto) % Lymph % (Auto) % [place] % (Auto) % Eos % (Auto) % Baso % (Auto) % Neut # (Auto) (1.40-6.50) K/uL Lymph # (Auto) (1.20-3.40) K/uL [place] # (Auto) (0.11-0.59) K/uL Eos # (Auto) (0.00-0.50) K/uL Baso # (Auto) (0.00-0.20) K/uL Immature Gran # (Auto) (0.01-0.20) K/uL PT (9.0-12.0) Seconds INR (0.9-1.1) APTT (21.0-31.0) Seconds PTT Ratio Sodium (136-145) mmol/L Potassium (3.5-5.1) mmol/L Chloride (98-107) mmol/L Carbon Dioxide (21-32) mmol/L Anion Gap (3-11) BUN (6-23) mg/dl Creatinine (0.6-1.2) mg/dl Est Cr Clr Drug Dosing ml/min Est GFR ( Amer) ml/min Est GFR (Non-Af Amer) ml/min BUN/Creatinine Ratio (10-20) Glucose (70-99(Fasting)) mg/dl Calcium (8.6-10.3) mg/dl Magnesium (1.7-2.4) mg/dl Total Bilirubin (0.2-1.0) mg/dl AST (13-39) U/L ALT (7-52) U/L Alkaline Phosphatase (34-104) U/L Troponin I High Sens (0-14) pg/ml Total Protein (6.0-8.3) gm/dl Albumin (3.4-5.0) gm/dl Globulin (2.5-4.0) gm/dl Albumin/Globulin Ratio (0.9-2) Urine Color Yellow Urine Appearance Clear (Clear) Urine pH 6.0 (4.5-7.5) Ur Specific [place] 1.018 (1.000-1.030) Urine Protein Negative (Negative) Urine Glucose (UA) Negative (Negative) Urine Ketones Negative (Negative) Urine Blood Negative (Negative) Urine Nitrite Negative (Negative) Urine Bilirubin Negative (Negative) Urine Urobilinogen Negative (Negative) Ur Leukocyte Esterase Negative (Negative) POC Ur Test NEG (NEG) Ethyl Alcohol mg/dL < 10.0 (<10.0) mg/dl Administered Medications Valproic Acid 500 mg/ Dextrose 55 mls @ 55 mls/hr IV ONE ONE Stop: 10/09/22 00:22 Last Admin: 10/08/22 23:45 Dose: 55 mls/hr Documented By: ROSETTA Discontinued Medications Dexamethasone Sodium Phosphate (DexamethasonePf 10 Mg/Ml Vial) 10 mg IV NOW ONE Stop: 10/08/22 23:23 Last Admin: 10/08/22 23:45 Dose: 10 mg Documented By: ROSETTA Ioversol (Ioversol 350 Mg 125ml Prefilled Syringe) 116 ml IV ONCE ONE Stop: 10/08/22 22:25 Last Admin: 10/08/22 22:24 Dose: 116 ml Documented By: ALIZA Imaging Data Attestation: I personally reviewed and interpreted this imaging study as follows: My Impression: CT of the brain was obtained in the emergency department. My interpretation is no intracranial hemorrhage or mass effect, final report below. CT dissection study was obtained in the emergency department. My interpretation is no free air or infiltrate, final report below. 1 view chest x-ray was obtained in the emergency department. My interpretation is no free air or definite infiltrate, final report pending. Radiologist's Impression: Chest CTA 10/08/22 22:14 Exam(s): CTA CHEST W/WO Contrast IV Amt: 116ML OPTIRAY 350 EXAM: CT Angiography Chest With and without Intravenous Contrast CLINICAL HISTORY: Reason for exam: CP. TECHNIQUE: Axial computed tomographic angiography images of the chest with and without intravenous contrast. Automated exposure control was utilized for the study. A dose lowering technique was utilized adhering to the principles of ALARA. MIP reconstructed images were created and reviewed. The bolus is equally distributed between the aorta and pulmonary artery. Mild breathing motion artifact. CONTRAST: Patient received 116ML OPTIRAY 350 of IV contrast COMPARISON: None. FINDINGS: Pulmonary arteries: No pulmonary embolism. Aorta: No dissection or aneurysm. Lungs: Clear. No consolidation. Pleural space: No significant effusion. No pneumothorax. Heart: No cardiomegaly. No significant pericardial effusion. No evidence of elevated right heart pressures. Bones/joints: No acute fracture. Soft tissues: Small hiatal hernia. Lymph nodes: No enlarged lymph nodes. IMPRESSION: 1. No pulmonary embolism, aortic aneurysm or dissection. 2. Lungs are clear. 3. Small hiatal hernia. Electronically signed by: Ria Ireland M.D. 10/08/22 22:[address] 10/08/22 22:14 CR Exam(s): CT HEAD Without Contrast EXAM: CT Head Without Intravenous Contrast CLINICAL HISTORY: Reason for exam: neuro deficit, acute stroke suspected. TECHNIQUE: Axial computed tomography images of the head/brain without intravenous contrast. CTDI is 37.61 mGy and DLP is 2342.03 mGy-cm. Automated exposure control was utilized for the study. A dose lowering technique was utilized adhering to the principles of ALARA. Mild motion artifact. COMPARISON: Head CT 06/16/22. FINDINGS: Brain: No mass effect or acute infarct. No acute hemorrhage. No definite abnormal density in the brain parenchyma with mild motion artifact limiting detail. Ventricles: No hydrocephalus or midline shift. Bones/joints: No skull fracture. Soft tissues: No scalp hematoma. Sinuses: Clear. Mastoid air cells: Partial left mastoidectomy and mastoid effusion in the residual portion, stable. IMPRESSION: 1. Mild left mastoid effusion, stable. 2. No acute infarct, bleed, acute intracranial abnormality, or interval change. 3. Mild motion artifact. Communications: Call Doctor Stroke Electronically signed by: Ria Ireland M.D. 10/08/22 22:47 PM Head CTA 10/08/22 22:14 CR Exam(s): CTA HEAD With Contrast IV Amt: 116ML OPTIRAY 350 EXAM: CT Angiography Head With Intravenous Contrast CLINICAL HISTORY: Reason for exam: neuro deficit, acute stroke suspected. TECHNIQUE: Axial computed tomographic angiography images of the head with intravenous contrast. CTDI is 37.61 mGy and DLP is 2342.03 mGy-cm. Automated exposure control was utilized for the study. A dose lowering technique was utilized adhering to the principles of ALARA. MIP reconstructed images were created and reviewed. Limited detail due to venous contamination, particularly of the right MCA. CONTRAST: Patient received 116ML OPTIRAY 350 of IV contrast COMPARISON: None. FINDINGS: Right internal carotid artery: Patent. Right anterior cerebral artery: Patent. Right middle cerebral artery: Patent. Right posterior cerebral artery: Patent. Right vertebral artery: Patent. Left internal carotid artery: Patent. Left anterior cerebral artery: Patent. Left middle cerebral artery: Patent. Left posterior cerebral artery: Patent. Left vertebral artery: Patent. Basilar artery: Patent. Other: Limited evaluation due to venous contamination. No definite aneurysm. IMPRESSION: 1. No aneurysm or large vessel occlusion. Communications: Call Doctor Stroke Electronically signed by: Ria Ireland M.D. 10/08/22 22:47 PM Neck CTA 10/08/22 22:14 CR Exam(s): CTA NECK With Contrast IV Amt: 116ML OPTIRAY 350 EXAM: CT Angiography Neck With Intravenous Contrast CLINICAL HISTORY: Reason for exam: neuro deficit, acute stroke suspected. TECHNIQUE: Routine carotid CT angiography protocol was performed with intravenous contrast. NASCET criteria using the distal ICAs for comparison were used for evaluation of stenoses. CTDI is 37.61 mGy and DLP is 2342.03 mGy-cm. Automated exposure control was utilized for the study. A dose lowering technique was utilized adhering to the principles of ALARA. MIP reconstructed images were created and reviewed. CONTRAST: Patient received 116ML OPTIRAY 350 of IV contrast COMPARISON: None. FINDINGS: Right common carotid artery: Patent. Right internal carotid artery: Patent. Right vertebral artery: Patent. Left common carotid artery: Patent. Left internal carotid artery: Patent. Left vertebral artery: Patent. Other: IMPRESSION: 1. No dissection, occlusion, or significant stenosis. CAROTID STENOSIS REFERENCE USING NASCET CRITERIA: % ICA stenosis = (1 - narrowest ICA diameter/diameter of distal cervical ICA) x 100. Mild - <50% stenosis. Moderate - 50-69% stenosis. Severe - 70-94% stenosis. Near occlusion - 95-99% stenosis. Occluded - 100% stenosis. Communications: Call Doctor Stroke Electronically signed by: Ria Ireland M.D. 10/08/22 22:48 PM Discharge Plan Visit Data Chief Complaint: Neuro Symptoms/Deficit Stated Complaint: Lt sided weakness with HENRY ED Provider: Andrew Kimble Discharge Problem: Stroke-like symptoms, Headache, migraine, Chest pain Patient Disposition: Being Evaluated by Hospitalist Forms Stand Alone [facility]: [facility] Prescriptions Prescriptions: No Action sertraline 100 mg tablet 100 mg PO HS Emergen-C 500 mg Tablet,Chewable 3 tab PO DAILY PRN (Reason: Cold Symptoms) clonidine HCl 0.1 mg tablet 0.1 mg PO HS Rx Instructions: MAY TAKE Q8HR IF NEEDED for BP lisinopril 10 mg tablet 10 mg PO QAM famotidine 20 mg tablet 20 mg PO BID Qty: 20 0RF ondansetron 4 mg tablet,disintegrating 4 mg PO Q6H PRN (Reason: nausea and vomiting) Qty: 14 0RF atorvastatin 40 mg tablet 40 mg PO HS clonazepam 0.5 mg tablet See Rx Instructions .ROUTE .COMPLEX MDD 3 TABLETS Rx Instructions: TAKE 1 TO 2 TABLETS BY MOUTH AT BEDTIME NEEDED FOR INSOMNIA. TAKE 1/2 TO 1 TABLET DURING THE DAY NEEDED FOR ANXIETY. NO MORE THAN 3 TABLETS DAILY Referrals Referrals: Clarice Vail MD [Primary Care Provider] - Headache, migraine Qualifiers: Migraine type: unspecified Status migrainosus presence: without status migrainosus Intractability: not intractable Qualified Code(s): G43.909 - Migraine, unspecified, not intractable, without status migrainosus Chest pain Qualifiers: Chest pain type: unspecified Qualified Code(s): R07.9 - Chest pain, unspecified
--- NOTE | 2022-10-08 22:48 | CT Scan Report ---
Exam(s): CT HEAD Without Contrast EXAM: CT Head Without Intravenous Contrast CLINICAL HISTORY: Reason for exam: neuro deficit, acute stroke suspected. TECHNIQUE: Axial computed tomography images of the head/brain without intravenous contrast. CTDI is 37.61 mGy and DLP is 2342.03 mGy-cm. Automated exposure control was utilized for the study. A dose lowering technique was utilized adhering to the principles of ALARA. Mild motion artifact. COMPARISON: Head CT 06/16/22. FINDINGS: Brain: No mass effect or acute infarct. No acute hemorrhage. No definite abnormal density in the brain parenchyma with mild motion artifact limiting detail. Ventricles: No hydrocephalus or midline shift. Bones/joints: No skull fracture. Soft tissues: No scalp hematoma. Sinuses: Clear. Mastoid air cells: Partial left mastoidectomy and mastoid effusion in the residual portion, stable. IMPRESSION: 1. Mild left mastoid effusion, stable. 2. No acute infarct, bleed, acute intracranial abnormality, or interval change. 3. Mild motion artifact. Communications: Call Doctor Stroke Electronically signed by: Ria Ireland M.D. 10/08/22 22:47 PM
--- NOTE | 2022-10-08 22:49 | CT Scan Report ---
Exam(s): CTA HEAD With Contrast IV Amt: 116ML OPTIRAY 350 EXAM: CT Angiography Head With Intravenous Contrast CLINICAL HISTORY: Reason for exam: neuro deficit, acute stroke suspected. TECHNIQUE: Axial computed tomographic angiography images of the head with intravenous contrast. CTDI is 37.61 mGy and DLP is 2342.03 mGy-cm. Automated exposure control was utilized for the study. A dose lowering technique was utilized adhering to the principles of ALARA. MIP reconstructed images were created and reviewed. Limited detail due to venous contamination, particularly of the right MCA. CONTRAST: Patient received 116ML OPTIRAY 350 of IV contrast COMPARISON: None. FINDINGS: Right internal carotid artery: Patent. Right anterior cerebral artery: Patent. Right middle cerebral artery: Patent. Right posterior cerebral artery: Patent. Right vertebral artery: Patent. Left internal carotid artery: Patent. Left anterior cerebral artery: Patent. Left middle cerebral artery: Patent. Left posterior cerebral artery: Patent. Left vertebral artery: Patent. Basilar artery: Patent. Other: Limited evaluation due to venous contamination. No definite aneurysm. IMPRESSION: 1. No aneurysm or large vessel occlusion. Communications: Call Doctor Stroke Electronically signed by: Ria Ireland M.D. 10/08/22 22:47 PM
--- NOTE | 2022-10-08 22:49 | CT Scan Report ---
Exam(s): CTA NECK With Contrast IV Amt: 116ML OPTIRAY 350 EXAM: CT Angiography Neck With Intravenous Contrast CLINICAL HISTORY: Reason for exam: neuro deficit, acute stroke suspected. TECHNIQUE: Routine carotid CT angiography protocol was performed with intravenous contrast. NASCET criteria using the distal ICAs for comparison were used for evaluation of stenoses. CTDI is 37.61 mGy and DLP is 2342.03 mGy-cm. Automated exposure control was utilized for the study. A dose lowering technique was utilized adhering to the principles of ALARA. MIP reconstructed images were created and reviewed. CONTRAST: Patient received 116ML OPTIRAY 350 of IV contrast COMPARISON: None. FINDINGS: Right common carotid artery: Patent. Right internal carotid artery: Patent. Right vertebral artery: Patent. Left common carotid artery: Patent. Left internal carotid artery: Patent. Left vertebral artery: Patent. Other: IMPRESSION: 1. No dissection, occlusion, or significant stenosis. CAROTID STENOSIS REFERENCE USING NASCET CRITERIA: % ICA stenosis = (1 - narrowest ICA diameter/diameter of distal cervical ICA) x 100. Mild - <50% stenosis. Moderate - 50-69% stenosis. Severe - 70-94% stenosis. Near occlusion - 95-99% stenosis. Occluded - 100% stenosis. Communications: Call Doctor Stroke Electronically signed by: Ria Ireland M.D. 10/08/22 22:48 PM
--- NOTE | 2022-10-08 22:54 | CT Scan Report ---
Exam(s): CTA CHEST W/WO Contrast IV Amt: 116ML OPTIRAY 350 EXAM: CT Angiography Chest With and without Intravenous Contrast CLINICAL HISTORY: Reason for exam: CP. TECHNIQUE: Axial computed tomographic angiography images of the chest with and without intravenous contrast. Automated exposure control was utilized for the study. A dose lowering technique was utilized adhering to the principles of ALARA. MIP reconstructed images were created and reviewed. The bolus is equally distributed between the aorta and pulmonary artery. Mild breathing motion artifact. CONTRAST: Patient received 116ML OPTIRAY 350 of IV contrast COMPARISON: None. FINDINGS: Pulmonary arteries: No pulmonary embolism. Aorta: No dissection or aneurysm. Lungs: Clear. No consolidation. Pleural space: No significant effusion. No pneumothorax. Heart: No cardiomegaly. No significant pericardial effusion. No evidence of elevated right heart pressures. Bones/joints: No acute fracture. Soft tissues: Small hiatal hernia. Lymph nodes: No enlarged lymph nodes. IMPRESSION: 1. No pulmonary embolism, aortic aneurysm or dissection. 2. Lungs are clear. 3. Small hiatal hernia. Electronically signed by: Ria Ireland M.D. 10/08/22 22:53 PM
[2022-10-08 23:17] LABS: Basophils # (auto) 0.02 K/uL (0.00-0.20); Basophils % (auto) 0.4 %; Eosinophils # (auto) 0.24 K/uL (0.00-0.50); Eosinophils % (auto) 4.6 %; Hemoglobin 11.7 g/dl (12.0-16.0); Lymphocytes # (auto) 1.96 K/uL (1.20-3.40); Lymphocytes % (auto) 37.3 %; Mean Corpuscular Hemoglobin 31.8 pg (25.0-34.0); Mean Corpuscular Hgb Conc 34.4 g/dL (32.0-36.0); Mean Corpuscular Volume 92.4 fL (80.0-100.0); Monocytes # (auto) 0.43 K/uL (0.11-0.59); Monocytes % (auto) 8.2 %; Neutrophils % (auto) 49.5 %; Platelet Count 239 K/uL (130-400); RDW Coefficient of Variation 11.5 % (11.5-14.5); RDW Standard Deviation 38.9 fL (36.4-46.3); Red Blood Count 3.68 M/uL (4.20-5.40); White Blood Count 5.25 K/ul (4.8-10.8)
[2022-10-08] MEDS ORDERED: dexAMETHasone**PF** 10 MG/ML VIAL IV ONE (23:22)
[2022-10-08] MEDS ORDERED: VALPROATE SOD 500 MG in DEXTROSE 5% 50 ML IV ONE (23:23)
[2022-10-08 23:31] LABS: Alanine Aminotransferase 22 U/L (7-52); Albumin Globulin Ratio 1.7 (0.9-2); Albumin Level 3.4 gm/dl (3.4-5.0); Alkaline Phosphatase 36 U/L (34-104); Anion Gap 6 (3-11); Aspartate Aminotransferase 19 U/L (13-39); BUN Creatinine Ratio 31.1 (10-20); Bilirubin,Total 0.3 mg/dl (0.2-1.0); Blood Urea Nitrogen 14 mg/dl (6-23); Calcium 8.1 mg/dl (8.6-10.3); Carbon Dioxide 22 mmol/L (21-32); Chloride 107 mmol/L (98-107); Creatinine Clr Calc Pharmacy 184.6 ml/min; Est GFR (African American) 142.2 ml/min; Est GFR (Non-African American) 122.7 ml/min; Glucose 131 mg/dl (70-99(Fasting)); Magnesium 1.7 mg/dl (1.7-2.4); Potassium 3.8 mmol/L (3.5-5.1); Sodium 135 mmol/L (136-145); Total Protein 5.4 gm/dl (6.0-8.3)
[2022-10-08 23:37] LABS: Troponin I High Sensitivity < 2.3 pg/ml (0-14)
[2022-10-08 23:43] LABS: Appearance Urine Clear (Clear); Bilirubin Urine Negative (Negative); Blood Urine Negative (Negative); Color Urine Yellow; Glucose Urine UA Negative (Negative); Ketones Urine Negative (Negative); Leukocyte Esterase Urine Negative (Negative); Nitrite Urine Negative (Negative); Protein Urine Negative (Negative); Specific Gravity Urine 1.018 (1.000-1.030); Urobilinogen Urine Negative (Negative)
[2022-10-08 23:44] LABS: Partial Thromboplastin Ratio 0.8; Partial Thromboplastin Time 22.9 Seconds (21.0-31.0); Prothrombin Time 10.9 Seconds (9.0-12.0)
[2022-10-09] MEDS ORDERED: NSS + 20MEQ KCL 20 MEQ/1,000 ML BAG IV STA (00:40)
[2022-10-09 01:07] LABS: Amphetamines+Metham, Urine Neg (Neg); Barbiturates, Urine Neg (Neg); Benzodiazepine, Urine Neg (Neg); Cocaine, Urine Neg (Neg); MDMA (Ecstacy), Urine Neg (Neg); Methadone, Urine Neg (Neg); Opiate, Urine Neg (Neg); Phencyclidine, Urine Neg (Neg)
[2022-10-09 01:17] LABS: Lyme Ab IgG w/WB Rflx Negative (Negative); Lyme Ab IgM w/WB Rflx Negative (Negative)
[2022-10-09] MEDS ORDERED: ASPIRIN 81 MG ECTAB PO STA (01:18)
[2022-10-09] MEDS: MAGNESIUM SULFATE / D5W 1 GM/100 ML BAG IV SCH ×2 (01:19→03:33)
[2022-10-09] MEDS ORDERED: oxyCODONE HCL IR 5 MG TAB (IMMEDIATE RELEASE) PO STA (01:20)
--- NOTE | 2022-10-09 01:20 | History & Physical Report ---
Date of Service October 09, 2022 Assessment & Plan (1) Headache, migraine: Plan: Headache symptoms reminiscent of migraine attacks, possible complicated migraine given neurologic deficit BP elevation at home contributory Rule out CVA Chest pain possibly from uncontrolled blood pressure at home Musculoskeletal component given reproducibility Anxiety contributory Rule out ACS given patient risk factors for ischemic heart disease hypertension, BP currently on the lower side hyperlipidemia, statin Rx hx relapsing remitting multiple sclerosis as per records hx cerebral aneurysm as per records psoriatic arthritis as per records hx CLL New onset anemia possibly from left forearm bruising, FOBT done at the ER was negative past tobacco abuse OBS PCU Aspirin for CAD/stroke prevention Analgesia, anxiolytic as needed Neurochecks MRI brain Neurology consult Re: Headache, with transient LUE weakness Follow troponin TTE, Cardiology consult N.p.o. until patient seen by Cardiology in anticipation of ischemic work-up Anemia work-up DVT prophylaxis. SCDs Re: Anemia, LUE ecchymosis Full code Patient father requesting updates from providers. Mr. Fermin Lakhani, contact #[phone]. Text document was generated using i[employer] voice recognition software. It may contain grammatical or spelling errors. Kindly contact undersigned for clarification of any documentation item in question. History of Present Illness Chief Complaint: High blood pressure, headache, chest pain Primary Care Provider: Clarice Vail MD History obtained from patient, family, and records. Medical history significant for hypertension, hyperlipidemia, multiple sclerosis, cerebral aneurysm as per records, history of migraine, psoriatic arthritis as per records,hx CLL, anxiety/mood disorder, IBS, atypical TB status post Rx, past tobacco abuse. Last confinement 2018 under OB service for elective . Last week, patient fell at work resulting in head trauma. No actual LOC but patient had transient blurred vision where she saw "stars". Patient admits to a lot of stress at work over the last few months. Bruising noted over left upper extremity. Patient had trouble getting words out, L UE noted to be weak. Achy headache symptoms reminiscent of migraine attack and neck pain. Pleuritic right-sided chest pain as well as abdominal pain. Denies black/bloody stools. Denies dysuria. Patient evaluated at the ER at [facility] after injury. Unremarkable CT of the head, neck, chest, abdomen and pelvis as per records. Concern for possible conversion disorder given recent stressors as per ER provider note. Neurology recommended admission but patient declined. Left upper extremity weakness resolved as per patient upon leaving the ER. Outpatient neurology follow-up recommended. At home, patient had tolerable pain complaints. Last night, patient noted worsening headache symptoms and substernal pain going to her neck. Headache with photophobia. Chest and abdominal pain worsening. Patient denies black/bloody stools. Admits to OTC NSAID intake. SBP 160s which is unusual for her. EMS called to patient's home. Patient noted recurrence of left upper extremity weakness. Stroke alert called upon patient arrival at the ER. Left upper extremity weakness improving but patient still complaining uncontrolled headache, chest pain, abdominal pain. Valproic acid and Decadron administered at the ER. Medical History as above Surgical History : section, left fibula fracture surgery, mastoidectomy left Family History : PVD, breast cancer, DM, fibromyalgia, heart disease, SLE Personal/Social history : Past tobacco abuse, occasional EtOH intake, director social service Allergies Allergy/AdvReac Type Severity Reaction Status Date / Time glatiramer (copolymer 1) Allergy Intermediate hives and Verified 06/16/22 15:29 rash at injection site latex Allergy Intermediate RASH Verified 06/16/22 15:29 mannitol Allergy Intermediate hives and Verified 06/16/22 15:29 rash at injection site Home Medications Medication Instructions Recorded Confirmed Type sertraline 100 mg tablet 100 mg PO HS 06/16/20 10/08/22 History vitamin C 500 mg-multivitamin with 3 tab PO DAILY PRN Cold Symptoms 06/16/20 10/08/22 History minerals chewable tablet (Emergen-C) clonidine HCl 0.1 mg tablet 0.1 mg PO HS 06/16/22 10/08/22 History famotidine 20 mg tablet 20 mg PO BID #20 tabs 06/16/22 10/08/22 Rx lisinopril 10 mg tablet 10 mg PO QAM 06/16/22 10/08/22 History ondansetron 4 mg disintegrating 4 mg PO Q6H PRN nausea and 06/16/22 10/08/22 Rx tablet vomiting #14 tabs atorvastatin 40 mg tablet 40 mg PO HS 10/08/22 10/08/22 History clonazepam 0.5 mg tablet See Rx Instructions .Route .COMPLEX 10/08/22 10/08/22 History Past Med/Surg History Medical History (Updated 10/09/22 @ 00:19 by Andrew Kimble DO) Acid reflux worsening with Anxiety currently off meds; wants to start them again PP after ; was on Klonopin and Zoloft History of tuberculosis "childhood" - cervical lymph nodes removed; per patient, retesting subsequently negative Hx MRSA infection cultures negative as of last week Intracranial aneurysm neurosurgery monitoring- "Cleared for delivery by whichever means the patient desires. No limitations" per neurosurgery 06/25/18 note but per patient, decision made for c/s to be safe Migraine Multiple sclerosis asymptomatic off medications currently; neurology monitoring : diagnosed 9 years ago Osteoarthritis PCOS (polycystic ovarian syndrome) Surgical History H/O colonoscopy History of open reduction and internal fixation (ORIF) procedure LEFT FIBULA [place] teeth extracted Family History Father Family history of diabetes mellitus Grandfather (Paternal) Family history of diabetes mellitus Uncle Family hx of colon cancer Grandmother (Maternal) Stomach cancer Social History Smoking Status: Former smoker Tobacco Type: Cigarettes Second Hand Exposure: No; Do You Dip or Chew Tobacco: No; Tobacco Cessation Education Requested by Patient: No Hx Alcohol Use: No Hx Substance Use: No Preferred Language: Tuvaluan Communication Ability: Effective Captain Waiter Required: No Beliefs That Will Affect Care: None marital status: Single Current Living Situation: Significant Other Current Living Situation Comment: Armando and stepchildren (part-time) Other Information That Helps Us Care for You: No Feels Safe at Home: Yes Safety Concerns: Feels Safe At This Time Assistive Devices: Cane and Glasses Review of Systems Review of Systems: As per HPI, all other systems reviewed and negative Physical Exam Physical Exam: GENERAL: uncomfortable, obese, no respiratory distress SKIN: Normal color, warm HEENT: [place] palpebral conjunctivae, no ptosis, dry buccal mucosa NECK : Supple, minimal cervical tenderness CHEST : CTA, anterior chest wall tenderness HEART : RRR, no obvious murmurs ABDOMEN: Some distention, right-sided abdominal tenderness RECTAL : Intact sphincter, brown stool (FOBT negative) EXTREMITIES : No LE swelling/tenderness, LUE ecchymosis, no other conspicuous deformities noted NEUROLOGIC : Coherent, no facial asymmetry, MMTS BUE 4/5 (R> L), BLE 4/5, pronator drift left Results & Data Results & Data Vital Signs (Past 12 Hours) Vital Signs Temp Pulse Pulse Resp BP BP Pulse Ox 10/09/22 01:00 73 16 103/65 97 10/09/22 00:45 76 13 96/66 L 96 10/09/22 00:15 69 12 95/60 L 95 10/09/22 00:00 73 17 100/61 96 10/08/22 23:45 68 22 103/61 97 10/08/22 23:30 82 12 100/63 94 10/08/22 23:15 77 16 96 10/08/22 23:00 85 17 108/62 95 10/08/22 22:37 87 17 96 10/08/22 22:37 103/70 10/08/22 22:32 92 H 24 10/08/22 22:30 99 H 10/08/22 22:14 99 H 16 108/74 99 10/08/22 22:14 10/08/22 22:14 36.9 C 99 H 16 108/74 99 O2 Del Method 10/09/22 01:00 Room Air 10/09/22 00:45 Room Air 10/09/22 00:15 Room Air 10/09/22 00:00 Room Air 10/08/22 23:45 Room Air 10/08/22 23:30 Room Air 10/08/22 23:15 Room Air 10/08/22 23:00 Room Air 10/08/22 22:37 10/08/22 22:37 10/08/22 22:32 10/08/22 22:30 10/08/22 22:14 Room Air 10/08/22 22:14 Room Air 10/08/22 22:14 Room Air Laboratory Results Laboratory Results WBC 5.25 K/ul (4.8-10.8) 10/08/22 22:33 RBC 3.68 M/uL (4.20-5.40) L 10/08/22 22:33 Hgb 11.7 g/dl (12.0-16.0) L 10/08/22 22:33 Hct 34.0 % (37.0-47.0) L 10/08/22: MCV 92.4 fL (80.0-100.0) 10/08/22: MCH 31.8 pg (25.0-34.0) 10/08/22: MCHC 34.4 g/dL (32.0-36.0) 10/08/22: RDW Std Deviation 38.9 fL (36.4-46.3) 10/08/22: RDW Coeff of Latoya 11.5 % (11.5-14.5) 10/08/22: Plt Count 239 K/uL (130-400) 10/08/22: MPV 10.0 fL (9.4-12.4) 10/08/22: Immature Gran % (Auto) 0.0 % 10/08/22: Neut % (Auto) 49.5 % 10/08/22: Lymph % (Auto) 37.3 % 10/08/22: Rogers % (Auto) 8.2 % 10/08/22: Eos % (Auto) 4.6 % 10/08/22: Baso % (Auto) 0.4 % 10/08/22 Neut # (Auto) 2.60 K/uL (1.40-6.50) 10/08/22: Lymph # (Auto) 1.96 K/uL (1.20-3.40) 10/08/22: Rogers # (Auto) 0.43 K/uL (0.11-0.59) 10/08/22: Eos # (Auto) 0.24 K/uL (0.00-0.50) 10/08/22: Baso # (Auto) 0.02 K/uL (0.00-0.20) 10/08/22: Immature Gran # (Auto) 0.00 K/uL (0.01-0.20) L 10/08/22: PT 10.9 Seconds (9.0-12.0) 10/08/22: INR 1.0 (0.9-1.1) 10/08/22 22: APTT 22.9 Seconds (21.0-31.0) 10/08/22 22:33 PTT Ratio 0.8 10/08/22 22:33 Sodium 135 mmol/L (136-145) L 10/08/22 22:33 Potassium 3.8 mmol/L (3.5-5.1) 10/08/22 22:33 Chloride 107 mmol/L (98-107) 10/08/22 22:33 Carbon Dioxide 22 mmol/L (21-32) 10/08/22 22:33 Anion Gap 6 (3-11) 10/08/22 22:33 BUN 14 mg/dl (6-23) 10/08/22 22:33 Creatinine 0.45 mg/dl (0.6-1.2) L 10/08/22 22:33 Est Cr Clr Drug Dosing 184.6 ml/min 10/08/22 22:33 Est GFR ( Amer) 142.2 ml/min 10/08/22 22:33 Est GFR (Non-Af Amer) 122.7 ml/min 10/08/22 22:33 BUN/Creatinine Ratio 31.1 (10-20) H 10/08/22 22:33 Glucose 131 mg/dl (70-99(Fasting)) H 10/08/22 22:33 Calcium 8.1 mg/dl (8.6-10.3) L 10/08/22 22:33 Magnesium 1.7 mg/dl (1.7-2.4) 10/08/22 22:33 Total Bilirubin 0.3 mg/dl (0.2-1.0) 10/08/22 22:33 AST 19 U/L (13-39) 10/08/22 22:33 ALT 22 U/L (7-52) 10/08/22 22:33 Alkaline Phosphatase 36 U/L (34-104) 10/08/22 22:33 Troponin I High Sens < 2.3 pg/ml (0-14) 10/08/22 22:33 Total Protein 5.4 gm/dl (6.0-8.3) L 10/08/22 22:33 Albumin 3.4 gm/dl (3.4-5.0) 10/08/22 22:33 Globulin 2.0 gm/dl (2.5-4.0) L 10/08/22 22:33 Albumin/Globulin Ratio 1.7 (0.9-2) 10/08/22 22:33 Urine Color Yellow 10/08/22 23:23 Urine Appearance Clear (Clear) 10/08/22 23:23 Urine pH 6.0 (4.5-7.5) 10/08/22 23:23 Ur Specific [employer] 1.018 (1.000-1.030) 10/08/22 23:23 Urine Protein Negative (Negative) 10/08/22 23:23 Urine Glucose (UA) Negative (Negative) 10/08/22 23:23 Urine Ketones Negative (Negative) 10/08/22 23:23 Urine Blood Negative (Negative) 10/08/22 23:23 Urine Nitrite Negative (Negative) 10/08/22 23:23 Urine Bilirubin Negative (Negative) 10/08/22 23:23 Urine Urobilinogen Negative (Negative) 10/08/22 23:23 Ur Leukocyte Esterase Negative (Negative) 10/08/22 23:23 POC Ur Test NEG (NEG) 10/08/22 23:23 Urine Opiates Screen Neg (Neg) 10/08/22 23:23 Ur Methadone, Qual Neg (Neg) 10/08/22 23:23 Urine Barbiturates Neg (Neg) 10/08/22 23:23 Ur Phencyclidine (PCP) Neg (Neg) 10/08/22 23:23 U Amphetamin/Meth Scrn Neg (Neg) 10/08/22 23:23 MDMA (Ecstasy) Screen Neg (Neg) 10/08/22 23:23 U Benzodiazepines Scrn Neg (Neg) 10/08/22 23:23 Ur Cocaine Metabolite Neg (Neg) 10/08/22 23:23 U Marijuana (THC) Screen Neg (Neg) 10/08/22 23:23 Ethyl Alcohol mg/dL < 10.0 mg/dl (<10.0) 10/08/22 23:13 Lyme Disease IgG Ab Negative (Negative) 10/08/22 22:33 Lyme Disease IgM Ab Negative (Negative) 10/08/22 22:33 Impressions Chest CTA 10/08/22 22:14 Exam(s): CTA CHEST W/WO Contrast IV Amt: 116ML OPTIRAY 350 EXAM: CT Angiography Chest With and without Intravenous Contrast CLINICAL HISTORY: Reason for exam: CP. TECHNIQUE: Axial computed tomographic angiography images of the chest with and without intravenous contrast. Automated exposure control was utilized for the study. A dose lowering technique was utilized adhering to the principles of ALARA. MIP reconstructed images were created and reviewed. The bolus is equally distributed between the aorta and pulmonary artery. Mild breathing motion artifact. CONTRAST: Patient received 116ML OPTIRAY 350 of IV contrast COMPARISON: None. FINDINGS: Pulmonary arteries: No pulmonary embolism. Aorta: No dissection or aneurysm. Lungs: Clear. No consolidation. Pleural space: No significant effusion. No pneumothorax. Heart: No cardiomegaly. No significant pericardial effusion. No evidence of elevated right heart pressures. Bones/joints: No acute fracture. Soft tissues: Small hiatal hernia. Lymph nodes: No enlarged lymph nodes. IMPRESSION: 1. No pulmonary embolism, aortic aneurysm or dissection. 2. Lungs are clear. 3. Small hiatal hernia. Electronically signed by: Ria Ireland M.D. 10/08/22 22:[address] 10/08/22 22:14 CR Exam(s): CT HEAD Without Contrast EXAM: CT Head Without Intravenous Contrast CLINICAL HISTORY: Reason for exam: neuro deficit, acute stroke suspected. TECHNIQUE: Axial computed tomography images of the head/brain without intravenous contrast. CTDI is 37.61 mGy and DLP is 2342.03 mGy-cm. Automated exposure control was utilized for the study. A dose lowering technique was utilized adhering to the principles of ALARA. Mild motion artifact. COMPARISON: Head CT 06/16/22. FINDINGS: Brain: No mass effect or acute infarct. No acute hemorrhage. No definite abnormal density in the brain parenchyma with mild motion artifact limiting detail. Ventricles: No hydrocephalus or midline shift. Bones/joints: No skull fracture. Soft tissues: No scalp hematoma. Sinuses: Clear. Mastoid air cells: Partial left mastoidectomy and mastoid effusion in the residual portion, stable. IMPRESSION: 1. Mild left mastoid effusion, stable. 2. No acute infarct, bleed, acute intracranial abnormality, or interval change. 3. Mild motion artifact. Communications: Call Doctor Stroke Electronically signed by: Ria Ireland M.D. 10/08/22 22:47 PM Head CTA 10/08/22 22:14 CR Exam(s): CTA HEAD With Contrast IV Amt: 116ML OPTIRAY 350 EXAM: CT Angiography Head With Intravenous Contrast CLINICAL HISTORY: Reason for exam: neuro deficit, acute stroke suspected. TECHNIQUE: Axial computed tomographic angiography images of the head with intravenous contrast. CTDI is 37.61 mGy and DLP is 2342.03 mGy-cm. Automated exposure control was utilized for the study. A dose lowering technique was utilized adhering to the principles of ALARA. MIP reconstructed images were created and reviewed. Limited detail due to venous contamination, particularly of the right MCA. CONTRAST: Patient received 116ML OPTIRAY 350 of IV contrast COMPARISON: None. FINDINGS: Right internal carotid artery: Patent. Right anterior cerebral artery: Patent. Right middle cerebral artery: Patent. Right posterior cerebral artery: Patent. Right vertebral artery: Patent. Left internal carotid artery: Patent. Left anterior cerebral artery: Patent. Left middle cerebral artery: Patent. Left posterior cerebral artery: Patent. Left vertebral artery: Patent. Basilar artery: Patent. Other: Limited evaluation due to venous contamination. No definite aneurysm. IMPRESSION: 1. No aneurysm or large vessel occlusion. Communications: Call Doctor Stroke Electronically signed by: iRa Ireland M.D. 10/08/22 22:47 PM Neck CTA 10/08/22 22:14 CR Exam(s): CTA NECK With Contrast IV Amt: 116ML OPTIRAY 350 EXAM: CT Angiography Neck With Intravenous Contrast CLINICAL HISTORY: Reason for exam: neuro deficit, acute stroke suspected. TECHNIQUE: Routine carotid CT angiography protocol was performed with intravenous contrast. NASCET criteria using the distal ICAs for comparison were used for evaluation of stenoses. CTDI is 37.61 mGy and DLP is 2342.03 mGy-cm. Automated exposure control was utilized for the study. A dose lowering technique was utilized adhering to the principles of ALARA. MIP reconstructed images were created and reviewed. CONTRAST: Patient received 116ML OPTIRAY 350 of IV contrast COMPARISON: None. FINDINGS: Right common carotid artery: Patent. Right internal carotid artery: Patent. Right vertebral artery: Patent. Left common carotid artery: Patent. Left internal carotid artery: Patent. Left vertebral artery: Patent. Other: IMPRESSION: 1. No dissection, occlusion, or significant stenosis. CAROTID STENOSIS REFERENCE USING NASCET CRITERIA: % ICA stenosis = (1 - narrowest ICA diameter/diameter of distal cervical ICA) x 100. Mild - <50% stenosis. Moderate - 50-69% stenosis. Severe - 70-94% stenosis. Near occlusion - 95-99% stenosis. Occluded - 100% stenosis. Communications: Call Doctor Stroke Electronically signed by: Ria Ireland M.D. 10/08/22 22:[address] Abdomen/pelvis: No acute abdominal process identified Mild hepatosplenomegaly CT left forearm: No acute fracture in the left radius, left ulna or the carpal bones Diagnostic Findings EKG as per my interpretation : Rate 80, NSR, normal axis, T wave abnormalities septal leads (1) Headache, migraine Intractability: not intractable Migraine type: unspecified Status migrainosus presence: without status migrainosus Qualified Code(s): G43.909 - Migraine, unspecified, not intractable, without status migrainosus
[2022-10-09] MEDS ORDERED: PROMETHAZINE HCL 12.5 MG in SODIUM CHLORIDE 0.9% 50 ML IV PRN (01:29)
[2022-10-09 01:51] LABS: Reticulocyte % 1.9 % (0.5-2.0); Reticulocytes # 0.08 10^6/uL (0.02-0.10)
[2022-10-09 02:09] LABS: Iron 60 mcg/dl (35-150); Transferrin 289 mg/dl (200-360)
[2022-10-09 02:16] LABS: Troponin I High Sensitivity < 2.3 pg/ml (0-14)
[2022-10-09 02:30] LABS: Ferritin 89.6 ng/ml (8-388)
[2022-10-09] MEDS ORDERED: clonazePAM 0.25 MG TAB PO PRN (02:57)
[2022-10-09] MEDS: MoRPHine SULFATE 2 MG/ML CARP IV PRN ×2 (03:00→07:45)
[2022-10-09 03:08] LABS: Folate (Folic Acid),Ser orPlas > 22.30 ng/ml (>5.38)
[2022-10-09 03:09] LABS: Vitamin B12 183 pg/ml (180-914)
[2022-10-09] MEDS ORDERED: GADOBUTROL 10ML VIAL IV ONE (04:58)
--- NOTE | 2022-10-09 05:14 | CT Scan Report ---
Exam(s): CT EXTREMITY LEFT UPPER Without Contrast EXAM: CT Left Upper Extremity Without Intravenous Contrast CLINICAL HISTORY: Reason for exam: pain/swelling, hx trauma. TECHNIQUE: Axial computed tomography images of the left forearm and wrist without intravenous contrast. CTDI is 24.58 mGy and DLP is 711.43 mGy-cm. Automated exposure control was utilized for the study. A dose lowering technique was utilized adhering to the principles of ALARA. COMPARISON: No relevant prior studies available. FINDINGS: Bones/joints: Unremarkable. No acute fracture. No dislocation. Soft tissues: Unremarkable. IMPRESSION: No acute fracture in the left radius, left ulna or the carpal bones Electronically signed by: Hemanth Dangelo MD 10/09/22 05:13 AM
[2022-10-09] MEDS: ACETAMINOPHEN 325 MG TAB PO PRN ×2 (05:18→20:07)
--- NOTE | 2022-10-09 05:18 | CT Scan Report ---
Exam(s): CT ABDOMEN + PELVIS Without Contrast EXAM: CT Abdomen and Pelvis Without Intravenous Contrast CLINICAL HISTORY: Reason for exam: abd pain. TECHNIQUE: Axial computed tomography images of the abdomen and pelvis without intravenous contrast. CTDI is 27.02 mGy and DLP is 1399.3 mGy-cm. Automated exposure control was utilized for the study. A dose lowering technique was utilized adhering to the principles of ALARA. COMPARISON: No relevant prior studies available. FINDINGS: Lung bases: Unremarkable. No mass. No consolidation. ABDOMEN: Liver: There is mild hepatomegaly. Gallbladder and bile ducts: Unremarkable. No calcified stones. No ductal dilation. Pancreas: Unremarkable. No ductal dilation. Spleen: There is mild splenomegaly measuring 14 cm in length. Adrenals: Unremarkable. No mass. 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 No hydronephrosis. Stomach and bowel: Moderate amount of fecal matter seen in the colon. No obstruction. No mucosal thickening. PELVIS: Appendix: No findings to suggest acute appendicitis. Bladder: Unremarkable. No stones. Reproductive: Unremarkable as visualized. ABDOMEN and PELVIS: Intraperitoneal space: Small amount of hemorrhagic fluid in the pelvis with density measurement of 42 HU. No free air. Bones/joints: Severe L5/S1 degenerative disc disease with disc space narrowing. No acute fracture. No dislocation. Soft tissues: Unremarkable. Vasculature: Unremarkable. No abdominal aortic aneurysm. Lymph nodes: Unremarkable. No enlarged lymph nodes. IMPRESSION: No acute abdominal process identified Mild hepatosplenomegaly Electronically signed by: Hemanth Dangelo MD 10/09/22 05:18 AM
[2022-10-09] MEDS: LORazepam 0.5 MG TAB PO PRN ×2 (05:19→20:07)
--- NOTE | 2022-10-09 06:02 | Magnetic Resonance Report ---
Exam(s): MRI HEAD W/WO Contrast EXAM: MR Head Without and With Intravenous Contrast CLINICAL HISTORY: Reason for exam: fox, LUE weakness. TECHNIQUE: Magnetic resonance images of the head/brain without and with intravenous contrast in multiple planes. CONTRAST: Contrast must be dictated COMPARISON: No relevant prior studies available. FINDINGS: Brain: Chronic periventricular ischemic demargination changes seen due to small vessel disease. No hemorrhage. Ventricles: Unremarkable. No ventriculomegaly. Bones/joints: Unremarkable. Sinuses: Unremarkable as visualized. No acute sinusitis. Mastoid air cells: Unremarkable as visualized. No mastoid effusion. Orbits: Unremarkable as visualized. IMPRESSION: No acute infarct Electronically signed by: Hemanth Dangelo MD 10/09/22 06:01 AM
--- NOTE | 2022-10-09 07:15 | XRay Report ---
SINGLE VIEW CHEST CLINICAL HISTORY: Neurological deficit. Stroke like symptoms. Atypical chest pain. FINDINGS: An AP, portable, semierect chest radiograph is compared to study dated 06/16/2020 and correla gi with chest CT dated 10/08/2022. The cardiomediastinal silhouette is unremarkable. The lungs and pl eural spaces are clear. No pneumothorax is seen. The bony thorax is grossly intact. IMPRESSION: No active disease in the chest. ACT 112: Negative or not required by law. Electronically signed by: Mitch Chow M.D. 10/09/2022 7:13 AM
--- NOTE | 2022-10-09 07:35 | Cardiology Consultation ---
Date of Consultation October 09, 2022 Assessment & Plan (1) Chest pain: (2) Hypertension: (3) Hyperlipidemia: (4) Headache, migraine: Plan IMPRESSION: 42 year old female admitted for stroke-like symptoms and chest pain. Cardiac workup has been unremarkable thus far including negative HS Troponin x2 and EKG without ischemic changes. Patient currently chest pain free. Improved blood pressure control since admission. PLAN: -Echo to be obtained to assess LVEF, Wall motion, and rule out valvular pathology as a cardiac cause to her current symptoms. Should imaging come back unremarkable can consider outpatient stress testing once neurology workup complete. Risk factors include: HTN, HLD, prior tobacco use, and family history of CAD. -Recommend good blood pressure control. There is risk for rebound hypertension with the use of clonidine- consider discontinuation of this medication if it is being used for BP control only. Consider low dose beta raquel therapy vs Norvasc in addition to her lisinopril. -Appreciate neurology input- per their consultation presentation most consistent with complicated migraine + vasospasm. Case discussed with Dr. Watkins. Supervising Physician Co-Signing Physician Notes Patient seen and examined, chart, medications, telemetry reviewed. Complex patient who presented with signs and symptoms of acute neurologic com plaints possible complex migraine. Chest pains at home in association with marked elevation of blood pressure though without findings consistent with acute coronary ischemia with normal troponin and EKGs and cardiac function on echocardiogram Has had longstanding hypertension and uses lisinopril plus clonidine for hypertension control. Clonidine once per day with a as needed additional dosing. Cardiac exam normal Impression: 1. Chest pain possible hypertensive urgency: No signs of acute myocardial ischemia or coronary syndrome. Would recommend given multiple risk factors proceeding with stress testing post hospital discharge 1 month 2. Labile hypertension: Discussed findings with patient notes of once a day use of clonidine can precipitate rebound hypertension. Would recommend increasing clonidine to 0.1 mg twice per day given additional potential benefits migraines etc. 3. Hyperlipidemia with recently begun lipid reduction: Discussed potential benefits with patient 4. Complex migraine as per neurology History of Present Illness Reason for Consultation: Chest pain Requesting Physician: Denisse liu Attending Physician: Jony Pang MD History of Present Illness 42-year-old female who initially presented to [facility] emergency department due to Hypertension, severe head ache, and chest pain. On 09/13/2022 patient was evaluated at [facility] emergency department due to a fall secondary to a presyncopal episode resulting in head trauma. She had concerns regarding left upper extremity weakness as well as word searching during this time. Symptoms resolved spontaneously. CT of the head, neck, chest, abdomen/pelvis were unremarkable. Neurology recommended admission but patient declined. Last evening, 10/08/2022 headache became severe and patient developed significant chest and abdominal pain. Became clammy, diaphoretic, and nauseated. Did not vomit. Left upper extremity weakness returned. Blood pressures were elevated at home- notes highest reading of 187/124. Normally takes Lisinopril 10 mg and clonidine 0.1 mg daily. Took 3 addition doses of clonidine (total of 0.4 mg) at home with blood pressure coming down to 160s sbp. In the ED a Stroke alert was called-imaging again revealed no acute changes, no intracranial hemorrhage or mass, no definite large vessel occlusion or abnormality. CT angio of the chest ruled out dissection. Brain MRI this a.m. without evidence of acute infarct. Patient was treated with valproic acid and Decadron in the emergency department. Upon entrance into the room patient resting supine in bed. No acute distress, but describes herself as feeling poorly. Continues to have a severe headache, feels nauseated, notes dizziness with position changes. Abdomen tender to palpation. Currently, she is chest pain free. No shortness of breath or palpitations. Blood pressures this admission have been well controlled, borderline hypotensive. She is a former smoker- smoked about 1/2 ppd, quit 2 years ago. No significant alcohol use. No drug use. +Family history of coronary disease and hyperlipidemia. Patient was recently started on Lipitor for elevated TG, per the patient TG was >600. Echo pending. Tele: SR 70s. EKG: Normal sinus rhythm, [address] segment changes Labs: High-sensitivity troponin negative x2. Past medical history: ? Multiple sclerosis Seizure disorder Migraine headaches PCOS History of cerebral aneurysm CLL Dyslipidemia with elevated triglycerides History of vertigo Allergies Allergy/AdvReac Type Severity Reaction Status Date / Time glatiramer (copolymer 1) Allergy Intermediate hives and Verified 06/16/22 15:29 rash at injection site latex Allergy Intermediate RASH Verified 06/16/22 15:29 mannitol Allergy Intermediate hives and Verified 06/16/22 15:29 rash at injection site Home Medications Medication Instructions Recorded Confirmed Type sertraline 100 mg tablet 100 mg PO HS 06/16/20 10/08/22 History vitamin C 500 mg-multivitamin with 3 tab PO DAILY PRN Cold Symptoms 06/16/20 10/08/22 History minerals chewable tablet (Emergen-C) clonidine HCl 0.1 mg tablet 0.1 mg PO HS 06/16/22 10/08/22 History famotidine 20 mg tablet 20 mg PO BID #20 tabs 06/16/22 10/08/22 Rx lisinopril 10 mg tablet 10 mg PO QAM 06/16/22 10/08/22 History ondansetron 4 mg disintegrating 4 mg PO Q6H PRN nausea and 06/16/22 10/08/22 Rx tablet vomiting #14 tabs atorvastatin 40 mg tablet 40 mg PO HS 10/08/22 10/08/22 History clonazepam 0.5 mg tablet See Rx Instructions .Route .COMPLEX 10/08/22 10/08/22 History Patient History Medical History (Updated 10/09/22 @ 10:00 by Alberto Pop MD) Acid reflux worsening with Anxiety currently off meds; wants to start them again PP after ; was on Klonopin and Zoloft History of tuberculosis "childhood" - cervical lymph nodes removed; per patient, retesting subsequently negative Hx MRSA infection cultures negative as of last week Intracranial aneurysm neurosurgery monitoring- "Cleared for delivery by whichever means the patient desires. No limitations" per neurosurgery 06/25/18 note but per patient, decision made for c/s to be safe Migraine Multiple sclerosis asymptomatic off medications currently; neurology monitoring : diagnosed 9 years ago Osteoarthritis PCOS (polycystic ovarian syndrome) Surgical History H/O colonoscopy History of open reduction and internal fixation (ORIF) procedure LEFT FIBULA [place] teeth extracted Family History Father Family history of diabetes mellitus Tremor Grandfather (Paternal) Family history of diabetes mellitus Uncle Family hx of colon cancer Grandmother (Maternal) Stomach cancer Brother Tremor Mother Cancer Social History Smoking Status: Former smoker Tobacco Type: Cigarettes Age Started Using Tobacco: 15; Age Quit Using Tobacco: 41; packs per day: 0.5; Second Hand Exposure: No; Do You Dip or Chew Tobacco: No; Tobacco Cessation Education Requested by Patient: No Hx Alcohol Use: No Hx Substance Use: No Preferred Language: Faroese Communication Ability: Effective Aviculturist Required: No Beliefs That Will Affect Care: None marital status: Single Current Living Situation: Significant Other Current Living Situation Comment: Armando and stepchildren (part-time) current occupational status: employed current occupation: Director ar [employer] Other Information That Helps Us Care for You: No Feels Safe at Home: Yes Safety Concerns: Feels Safe At This Time Assistive Devices: Cane and Glasses Review of Systems Review of Systems: All systems reviewed & are unremarkable except as noted in HPI & below Physical Exam Constitutional: WD/WN, vitals as above no acute distress Neck: normal visual inspection and trachea midline Respiratory: normal respiratory effort, lungs clear to auscultation no cough Auscultation: no rales, no rhonchi and no wheezes Cardiovascular: RRR, no murmur, no edema Heart Sounds: normal S1 and normal S2 Vessels: radial pulses present; no JVD Extremities: no edema Gastrointestinal (Abdomen): Inspection/Auscultation: abdomen normal to inspection and normal bowel sounds; abdomen not distended and no abdominal edema Percussion/Palpation: + abdomen tender Skin: no rashes, warm and dry Psychiatric: A+Ox3, euthymic affect Results & Data Vital Signs (Past 12 Hours) Vital Signs Temp Pulse Pulse Resp BP BP Pulse Ox 10/09/22 03:00 36.7 C 72 20 109/77 97 10/09/22 02:57 73 10/09/22 02:57 10/09/22 02:57 10/09/22 02:51 36.7 C 72 20 109/77 97 10/09/22 02:00 70 17 95/68 L 96 10/09/22 01:30 70 21 97 10/09/22 01:15 77 17 100/69 98 10/09/22 01:00 73 16 103/65 97 10/09/22 00:45 76 13 96/66 L 96 10/09/22 00:15 69 12 95/60 L 95 10/09/22 00:00 73 17 100/61 96 10/08/22 23:45 68 22 103/61 97 10/08/22 23:30 82 12 100/63 94 10/08/22 23:15 77 16 96 10/08/22 23:00 85 17 108/62 95 10/08/22 22:37 87 17 96 10/08/22 22:37 103/70 10/08/22 22:32 92 H 24 10/08/22 22:30 99 H 10/08/22 22:14 99 H 16 108/74 99 10/08/22 22:14 10/08/22 22:14 36.9 C 99 H 16 108/74 99 O2 Del Method O2 Del Method 10/09/22 03:00 Room Air 10/09/22 02:57 10/09/22 02:57 Room Air 10/09/22 02:57 Room Air 10/09/22 02:51 Room Air 10/09/22 02:00 Room Air 10/09/22 01:30 Room Air 10/09/22 01:15 Room Air 10/09/22 01:00 Room Air 10/09/22 00:45 Room Air 10/09/22 00:15 Room Air 10/09/22 00:00 Room Air 10/08/22 23:45 Room Air 10/08/22 23:30 Room Air 10/08/22 23:15 Room Air 10/08/22 23:00 Room Air 10/08/22 22:37 10/08/22 22:37 10/08/22 22:32 10/08/22 22:30 10/08/22 22:14 Room Air 10/08/22 22:14 Room Air 10/08/22 22:14 Room Air Laboratory Results Cardiac Enzymes 10/08/22 10/09/22 Range/Units 22:33 01:33 AST 19 (13-39) U/L Troponin I High Sens < 2.3 < 2.3 (0-14) pg/ml Coagulation 10/08/22 Range/Units 22:33 PT 10.9 (9.0-12.0) Seconds APTT 22.9 (21.0-31.0) Seconds Lipids 10/09/22 Range/Units 06:50 Triglycerides 112 (0-150) mg/dl Cholesterol 245 H (0-200) mg/dl HDL Cholesterol 51 mg/dl Cholesterol/HDL Ratio 4.8 (0-5) CBC 10/08/22 10/09/22 Range/Units 22:33 06:50 WBC 5.25 4.67 L (4.8-10.8) K/ul RBC 3.68 L 4.33 (4.20-5.40) M/uL Hgb 11.7 L 13.6 (12.0-16.0) g/dl Hct 34.0 L 39.4 (37.0-47.0) % Plt Count 239 279 (130-400) K/uL Neut # (Auto) 2.60 3.66 (1.40-6.50) K/uL Lymph # (Auto) 1.96 0.92 L (1.20-3.40) K/uL Cloud # (Auto) 0.43 0.05 L (0.11-0.59) K/uL Eos # (Auto) 0.24 0.01 (0.00-0.50) K/uL Baso # (Auto) 0.02 0.01 (0.00-0.20) K/uL Comprehensive Metabolic Panel 10/08/22 10/09/22 Range/Units 22:33 06:50 Sodium 135 L 135 L (136-145) mmol/L Potassium 3.8 5.0 D (3.5-5.1) mmol/L Chloride 107 106 (98-107) mmol/L Carbon Dioxide 22 22 (21-32) mmol/L BUN 14 11 (6-23) mg/dl Creatinine 0.45 L 0.54 L (0.6-1.2) mg/dl Glucose 131 H 155 H (70-99(Fasting)) mg/dl Calcium 8.1 L 9.4 (8.6-10.3) mg/dl AST 19 (13-39) U/L ALT 22 (7-52) U/L Alkaline Phosphatase 36 (34-104) U/L Total Protein 5.4 L (6.0-8.3) gm/dl Albumin 3.4 (3.4-5.0) gm/dl Intake and Output 10/08/22 10/09/22 10/09/22 22:59 06:59 14:59 Intake Total 255 / 255 Output Total 400 / 400 Balance -145 / -145 Intake: IV 255 / 255 Magnesium Sulfate / D5w 1 gm In 200 / 200 100 ml @ 50 mls/hr IV Q2H [facility] Rx#:[id number] Valproate Sod 500 mg In 55 / 55 Dextrose 5% 50 ml @ 55 mls/hr IV ONE ONE Rx#:[id number] Output: Urine 400 / 400 Other: # Unmeasured Voids 1 Weight 89 kg 87.1 kg Weight Measurement Method Built in Bedscale Standing Scale (1) Chest pain Chest pain type: unspecified Qualified Code(s): R07.9 - Chest pain, unspecified (4) Headache, migraine Intractability: not intractable Migraine type: unspecified Status migrainosus presence: without status migrainosus Qualified Code(s): G43.909 - Migraine, unspecified, not intractable, without status migrainosus
[2022-10-09] MEDS: FAMOTIDINE 20 MG TAB PO SCH ×2 (07:42→21:10)
[2022-10-09 07:55] LABS: Basophils # (auto) 0.01 K/uL (0.00-0.20); Basophils % (auto) 0.2 %; Eosinophils # (auto) 0.01 K/uL (0.00-0.50); Eosinophils % (auto) 0.2 %; Hematocrit (blood only) 39.4 % (37.0-47.0); Hemoglobin 13.6 g/dl (12.0-16.0); Immature Granulocytes # (auto) 0.02 K/uL (0.01-0.20); Immature Granulocytes % (auto) 0.4 %; Lymphocytes # (auto) 0.92 K/uL (1.20-3.40); Lymphocytes % (auto) 19.7 %; Mean Corpuscular Hemoglobin 31.4 pg (25.0-34.0); Mean Corpuscular Hgb Conc 34.5 g/dL (32.0-36.0); Monocytes # (auto) 0.05 K/uL (0.11-0.59); Monocytes % (auto) 1.1 %; Neutrophils # (auto) 3.66 K/uL (1.40-6.50); Neutrophils % (auto) 78.4 %; Platelet Count 279 K/uL (130-400); RDW Coefficient of Variation 11.6 % (11.5-14.5); RDW Standard Deviation 38.9 fL (36.4-46.3); Red Blood Count 4.33 M/uL (4.20-5.40); White Blood Count 4.67 K/ul (4.8-10.8)
[2022-10-09 08:17] LABS: BUN Creatinine Ratio 20.4 (10-20); Calcium 9.4 mg/dl (8.6-10.3); Chol HDL Ratio 4.8 (0-5); Creatinine Clr Calc Pharmacy 152.3 ml/min; Est GFR (Non-African American) 115.6 ml/min
--- NOTE | 2022-10-09 10:07 | Neurology Consultation ---
Date of Consultation October 09, 2022 Assessment & Plan (1) Complicated migraine: (2) Stroke-like symptoms: (3) Concussion: (4) Cerebral aneurysm: (5) Multiple sclerosis: (6) Chronic cerebral ischemia: Plan This is a complicated patient from a neurologic standpoint. Patient has longstanding history of migraine headaches with a severe migraine of a persistent nature post closed head trauma and concussion October 04. She presented October 08 with stroke-like symptoms (weakness and numbness on the left side as well as the severe headache. Her blood pressure was controlled by the time she got to the hospital (it was elevated prior apparently). MRI of the brain was unremarkable. There was no stroke. Patient has moderate white matter spots on MRI for age. She has he history of possible MS and I am not convinced of this. Her white matter spots are nonspecific appearing and do not look typical for MS. She has multiple risk factors for small-vessel ischemia including hypertension, cigarette smoking, dyslipidemia, and severe migraines. There was a concern regarding a cerebral aneurysm (left A2) but even in 2018 it was only 1 mm. It was not seen on CT angiography October 08. Currently she has a severe headache but is otherwise unremarkable. Her current presentation is consistent a complicated migraine with evidence of ongoing vasospasm (weakness or dysesthesias) as well as vasodilation (headache). Recommendations: 1. Control blood pressure as you are doing. 2. Remain off cigarettes 3. Consider increasing atorvastatin for better lipid control 4. Repeat TSH and free T4 and if abnormal consider treating. Hypothyroidism could be driving her headaches as well as hypertension. 5. B12 is borderline. I would replace orally with a multiple vitamin/B complex 6. Consider 81 mg aspirin tablet daily to prevent small-vessel ischemic disease 7. Avoid Triptans as these could create vasospasm. Consider treating headache with tapering prednisone course over 1 week. Also could consider 75 mg Nurtec or 100 mg Ubrelvy orally for her migraine (however, these may not be formulary in the hospital). Could also consider repeating 500 mg IV valproic acid to try and break the headache. Overall, I spent a total of 90 minutes with this case including review of records, reviewing CT and MRI films, report generation, direct evaluation the patient at bedside, discussing the case with the patient and RN at bedside, and Dr. Pang, including differential diagnosis and treatment options. History of Present Illness Reason for Consultation: Patient is a 42-year-old, who I was asked to see at the request of Dr. Vásquez, for neurologic evaluation of possible stroke. Requesting Physician: Dr. Alcantara Attending Physician: Jony Pang MD History of Present Illness This patient has a longstanding history of migraine headaches, starting in childhood years but most significantly when she had her 1st menstrual cycle at age 15. In her teens and 20s there were very intense and frequent. They lessened a bit in her 30s. Since her last child (4 years ago) she is not had any significant/severe migraines until this past week. She would get lesser headaches couple of times a week consisting of some bifrontal pain with dizziness and blurry vision. These could be linked to high blood pressure but to be triggered by stress. A typical headache for her would consist of a visual aura lasting 30 minutes fo llowed by a bitemporal or bifrontal severe intense pain of a steady nature. There would be nausea, vomiting, photophobia, and phonophobia. Steroids would help in the past and other medications have been tried with varying results. The patient has a history of possible multiple sclerosis. She had symptoms of poor balance, slurred speech, and nonspecific numbness or tingling in her lower extremities. She went to [facility] and apparently had an MRI and LP which was consistent with possible MS. Steroids always helped her symptoms. After couple of years she was put on Copaxone but she had a reaction to this. She then was on Plegridy for at least several years. This was stopped 5 years ago when she became . She is not been on disease modifying therapy since and has had no significant flare ups or changes with vision, strength, sensation, or balance otherwise. There was a concern that the patient may have a cerebral aneurysm. In June of 2018 she had a neurosurgical evaluation at [facility] and the neurosurgeon felt that there was perhaps a 1 mm left A2 aneurysm present (it was not obvious or significant). There was no concern and he felt nothing further needed to be done. Patient has had a tremor since her teen years. He has been gradually worse over time. Fine motor activities and use of her hands sometimes is quite difficult. Handwriting can be difficult. Caffeine may make it worse and alcohol may dampen it. Stress brings it out. There is a positive family history of tremor in her 69-year-old father and 41-year-old brother. The patient has had cervical spine pain for years and is known to have degenerative changes. Neck pain can trigger headaches as well. The patient has a history of hypertension for the last 20 years. She has dyslipidemia but no heart disease or obvious diabetes. She is been a longstanding cigarette smoker but stopped a year ago. She is no obvious heart disease or previous stroke. She is had an elevated TSH but has not been treated recently. Some years ago, the patient was having significant balance issues and vertigo. She was found to have a left inner ear mastoiditis and dehiscence. She had a procedure which plugged her mastoid and the holes. Since the procedure, she is had far less vertigo and balance issues. On October 04, while at work she lost her balance falling backwards striking the back of her head. She was stunned and may have blacked out with a brief loss of consciousness. She was dizzy and confused but cleared after about 15 minutes. She is had an increased headache ever since. October 08, she noted elevated blood pressure increased headache, and left- sided numbness face, arm, and leg. The arm was a little bit weak and the leg was heavy. She took 3 clonidine tablets for her blood pressure prior to coming to the emergency room. She arrived in the emergency room October 08 at 10:14 p.m. with a temperature of 36.9, pulse 99 regular, blood pressure 108/74, O2 saturation 99%. In the emergency room her wardsperson was weak on the left and her left leg was heavy. She had a drift of the left upper extremity. CBC showed slight anemia and Chem profile was remarkable for glucose of 131. Urinalysis was normal and tox screen was negative. Lyme antibodies were negative and she was not . She was given valproic acid 500 mg plus steroid which had some improvement on her headache. CT angiography of the head and neck were unremarkable without any vascular anomalies or aneurysms. There were no stenoses. CT angiography of the chest was unremarkable. The patient had some chest pain radiating up to her left arm and neck CT scan of the head was unremarkable. MRI of the brain showed multiple white matter spots of a [id number] nature without atrophy. There were no acute changes and she did not have an acute stroke. I reviewed all of these films. Vitamin B12 is borderline at 183 and lipid profile showed a triglyceride of 112 and total cholesterol 245. Heart rhythm has been sinus in the 60s. There are no dysrhythmias. Today the patient feels that her left leg is still little bit heavy but most of her symptoms have resolved in her limbs. She has a significant migrainous headaches still with photophobia and nausea. Allergies Allergy/AdvReac Type Severity Reaction Status Date / Time glatiramer (copolymer 1) Allergy Intermediate hives and Verified 06/16/22 15:29 rash at injection site latex Allergy Intermediate RASH Verified 06/16/22 15:29 mannitol Allergy Intermediate hives and Verified 06/16/22 15:29 rash at injection site Home Medications Medication Instructions Recorded Confirmed Type sertraline 100 mg tablet 100 mg PO HS 06/16/20 10/08/22 History vitamin C 500 mg-multivitamin with 3 tab PO DAILY PRN Cold Symptoms 06/16/20 10/08/22 History minerals chewable tablet (Emergen-C) clonidine HCl 0.1 mg tablet 0.1 mg PO HS 06/16/22 10/08/22 History famotidine 20 mg tablet 20 mg PO BID #20 tabs 06/16/22 10/08/22 Rx lisinopril 10 mg tablet 10 mg PO QAM 06/16/22 10/08/22 History ondansetron 4 mg disintegrating 4 mg PO Q6H PRN nausea and 06/16/22 10/08/22 Rx tablet vomiting #14 tabs atorvastatin 40 mg tablet 40 mg PO HS 10/08/22 10/08/22 History clonazepam 0.5 mg tablet See Rx Instructions .Route .COMPLEX 10/08/22 10/08/22 History Patient History Medical History (Updated 10/09/22 @ 10:00 by Alberto Pop MD) Acid reflux worsening with Anxiety currently off meds; wants to start them again PP after ; was on Klonopin and Zoloft History of tuberculosis "childhood" - cervical lymph nodes removed; per patient, retesting subsequently negative Hx MRSA infection cultures negative as of last week Intracranial aneurysm neurosurgery monitoring- "Cleared for delivery by whichever means the patient desires. No limitations" per neurosurgery 06/25/18 note but per patient, decision made for c/s to be safe Migraine Multiple sclerosis asymptomatic off medications currently; neurology monitoring : diagnosed 9 years ago Osteoarthritis PCOS (polycystic ovarian syndrome) Surgical History H/O colonoscopy History of open reduction and internal fixation (ORIF) procedure LEFT FIBULA [place] teeth extracted Family History Father Family history of diabetes mellitus Tremor Grandfather (Paternal) Family history of diabetes mellitus Uncle Family hx of colon cancer Grandmother (Maternal) Stomach cancer Brother Tremor Mother Cancer Social History Smoking Status: Former smoker Tobacco Type: Cigarettes Age Started Using Tobacco: 15; Age Quit Using Tobacco: 41; packs per day: 0.5; Second Hand Exposure: No; Do You Dip or Chew Tobacco: No; Hx Alcohol Use: No Hx Substance Use: No Preferred Language: Luxembourgish Communication Ability: Effective Student Life Coordinator Required: No Beliefs That Will Affect Care: None marital status: Single Current Living Situation: Significant Other Current Living Situation Comment: [place] and stepchildren (part-time) current occupational status: employed current occupation: Director ar Skills Feels Safe at Home: Yes Assistive Devices: Cane and Glasses Review of Systems Constitutional: no fever, no fatigue and no weakness Eyes: no diplopia, no eye pain and no worsening vision Ear, Nose, Mouth, Throat: + dizziness; no ear pain, no tinnitus, no hearing loss, no snoring, no hoarseness and no dysphagia Respiratory: no cough and no dyspnea Cardiovascular: no chest pain, no palpitations and no lightheadedness Gastrointestinal: no abdominal pain, no nausea and no vomiting Genitourinary: no dysuria, no urinary frequency and no urinary incontinence Musculoskeletal: + neck pain; no back pain, no radicular pain, no joint pain and no myalgia Integumentary: no rash and no lesions Neurologic: + localized weakness, + numbness and + headache(s); no gait abnormality, no generalized weakness, no tingling, no tremor(s), no abnormal movements, no abnormal speech, no confusion and no memory loss Psychiatric: no depression, no irritability, no anxiety, no difficulty concentrating, no confusion and no hallucinations Endocrine: no fatigue and no flushing Hematologic / Lymphatic: no easy bleeding and no easy bruising Allergy / Immunological: no urticaria and no problem reported Exam (Neuro) Physical Exam: The patient is right-handed. The patient is awake, alert, and attentive. Speech is normal without any aphasia or dysarthria. The patient can name objects, repeat phrases, and has normal spontaneous speech. Mentation and thought processes are intact, with orientatio n to person, place and time, and normal fund of knowledge. Attention and concentration are normal. Mood and affect are normal and appropriate. General appearance and grooming are normal. Short and long-term memory are intact. Pupils are 4 mm bilaterally and reactive to light. Extraocular eye muscles are intact without nystagmus. Visual acuity and visual rollins seem normal grossly to confrontation. There are no deficits to sensation in the face in all 3 distributions of the fifth cranial nerve bilaterally. Corneal reflexes are positive bilaterally. Facial strength and symmetry was normal bilaterally. Hearing seems normal bilaterally. Palate moves well without asymmetry. There is normal sternocleidomastoid and trapezius (shoulder shrug) strength bilaterally. Tongue is midline with good strength bilaterally. Neck has a full range of motion without discomfort. There are no cervical bruits bilaterally. There are no cranial or ocular bruits. Heart is without murmur. There is a regular rhythm and rate. Cervical, thoracic, and lumbar spine are nontender to palpation. Gait is narrow based, with good arm swing, turns, and stance. Balance is normal eyes open or closed. With outstretched arms there is no drift. There are no resting tremors. There is minimal action tremor bilaterally. I note no head tremor or voice tremor. There is no ataxia with finger to nose testing. There is good facility in the hands. No other abnormal involuntary movements are noted. Motor strength is 5/5 diffusely in the arms bilaterally including deltoids, biceps, triceps, brachioradialis, wrist flexors and extensors, wardsperson, and intrinsic hand muscles. Motor strength is 5/5 diffusely in the legs bilaterally including hip flexors, quadriceps, hamstrings, gastrocnemius, tibialis anterior, tibialis posterior, and Peroneii muscles. Toe extensors are normal and there is good bulk in the extensor digitorum brevis muscles bilaterally. The limbs have good tone without rigidity or spasticity. There is no atrophy noted in the muscles. Muscle bulk is normal, there is no tenderness to palpation, no myotonia to percussion, and no fasciculations seen. Sensory examination reveals some decreased sensation to pin in the left lower extremity compared to the right of a very mild nature. The arm and face were spared. Light touch seemed to be little bit different on the left side in all 3 distributions compared to the right. Reflexes are 2/4 in the biceps, triceps, brachioradialis, quadriceps, and Achilles tendons bilaterally. There is no clonus bilaterally. Toes are downgoing with plantar stimulation bilaterally. Peripheral pulses are present and of normal quality distally in all 4 limbs. There is no peripheral edema noted in the limbs. Results & Data Vital Signs (Past 12 Hours) Vital Signs Temp Pulse Pulse Resp BP BP Pulse Ox 10/09/22 08:03 66 10/09/22 07:39 36.6 C 64 18 111/74 97 10/09/22 03:00 36.7 C 72 20 109/77 97 10/09/22 02:57 73 10/09/22 02:57 10/09/22 02:57 10/09/22 02:51 36.7 C 72 20 109/77 97 10/09/22 02:00 70 17 95/68 L 96 10/09/22 01:30 70 21 97 10/09/22 01:15 77 17 100/69 98 10/09/22 01:00 73 16 103/65 97 10/09/22 00:45 76 13 96/66 L 96 10/09/22 00:15 69 12 95/60 L 95 10/09/22 00:00 73 17 100/61 96 10/08/22 23:45 68 22 103/61 97 10/08/22 23:30 82 12 100/63 94 10/08/22 23:15 77 16 96 10/08/22 23:00 85 17 108/62 95 10/08/22 22:37 87 17 96 10/08/22 22:37 103/70 10/08/22 22:32 92 H 24 10/08/22 22:30 99 H 10/08/22 22:14 99 H 16 108/74 99 10/08/22 22:14 10/08/22 22:14 36.9 C 99 H 16 108/74 99 O2 Del Method O2 Del Method 10/09/22 08:03 10/09/22 07:39 Room Air 10/09/22 03:00 Room Air 10/09/22 02:57 10/09/22 02:57 Room Air 10/09/22 02:57 Room Air 10/09/22 02:51 Room Air 10/09/22 02:00 Room Air 10/09/22 01:30 Room Air 10/09/22 01:15 Room Air 10/09/22 01:00 Room Air 10/09/22 00:45 Room Air 10/09/22 00:15 Room Air 10/09/22 00:00 Room Air 10/08/22 23:45 Room Air 10/08/22 23:30 Room Air 10/08/22 23:15 Room Air 10/08/22 23:00 Room Air 10/08/22 22:37 10/08/22 22:37 10/08/22 22:32 10/08/22 22:30 10/08/22 22:14 Room Air 10/08/22 22:14 Room Air 10/08/22 22:14 Room Air PG Care Time/CCT Total # of Minutes Spent Total Time Spent with Patient: Total time spent is greater than 50% in coordination of care (as documented) at patient's floor/unit and/or counseling patient: Coding Level of Care Code 28532 IN/OBS CONSULT LVL 5,80M Diagnoses Complicated migraine G43.109 Stroke-like symptoms R29.90 Concussion S06.0XAA Cerebral aneurysm I67.1 Multiple sclerosis G35 Chronic cerebral ischemia I67.82 Time Spent (min) 90
[2022-10-09] MEDS: oxyCODONE HCL IR 5 MG TAB (IMMEDIATE RELEASE) PO PRN ×2 (11:29→20:08)
[2022-10-09] MEDS ORDERED: LACTATED RINGER'S 1,000 ML IV ONE (13:06)
[2022-10-09] MEDS ORDERED: dexAMETHasone 10 MG in SYRINGE 0 ML IV ONE (13:15)
--- NOTE | 2022-10-09 16:21 | Hospitalist Progress Note ---
Date of Service October 09, 2022 Assessment & Plan (1) Headache, migraine: Plan: Complicated migraine Strokelike symptoms Concussion Chronic small vessel disease H/O multiple sclerosis, cerebral aneurysm --MRI Brain:Chronic periventricular ischemic demargination changes seen due to small vessel disease. No hemorrhage. Ventricles: Unremarkable. No ventriculomegaly. --Head CTA:No aneurysm or large vessel occlusion. --Neck CTA:No dissection, occlusion, or significant stenosis. --Hypertension likely contributing as well. ? Rebound hypertension due to clonidine use only at bedtime at home --Appreciate neurology input Better blood pressure control Abstinence from tobacco use Continue aspirin 81 mg daily Avoid triptans We will repeat thyroid function tests, add multivitamin Given Decadron today. Plan to place on taper prednisone course tomorrow Hypertensive urgency on presentation ? Situational Chest pain likely due to above --Chest CTA:No pulmonary embolism, aortic aneurysm or dissection. Lungs are clear. Small hiatal hernia. --ECHO: EF 60 to 65%. No significant valve disease. No pericardial effusion. Left ventricle wall motion is normal. Borderline concentric LVH. Lisinopril, clonidine currently on hold due to low BP Appreciate cardiology input Adjust medications as needed Monitor BP Hyperlipidemia Recently started on Lipitor by PCP Continue Lipitor Abdominal pain Unclear etiology Mild hepatosplenomegaly -Incidental finding on CT H/O PCOS per patient -CT ABD:No acute abdominal process identified. Mild hepatosplenomegaly LFTs within normal limits Check Lipase H/O Relapsing remitting multiple sclerosis Psoriatic arthritis CLL Past tobacco abuse Mood disorder As per records Continue home medications DVT Px: SCDs for now Code Status Full code Admission and Anticipated Discharge Date Admission Date: October 09, 2022 Subjective Patient is seen and examined at bedside States having headache associated with sensitivity to bright light, sound Also reports rib pain, nausea and abdominal discomfort Last bowel movement yesterday Chest pain resolved Denies any dyspnea Discussed with neurology today Review of Systems Review of Systems: All systems reviewed & are unremarkable except as noted in Subjective Physical Exam Physical Exam: Physical Exam: Vitals signs as noted above General Appearance:Moderately built and nourished, no apparent distress Head: normocephalic, Atraumatic Eyes: normal inspection, EOMI Neck: supple, Trachea midline Respiratory/Chest: Normal breath sounds, mild rib tender, No accessory muscle use Cardiovascular: S1, S2, No murmur Abdomen/GI:Soft, mild R sided tender, Bowel sounds present Extremities/Musculoskeletal:normal inspection, no edema Neurologic/Psych:AAOX3, grossly no focal neurological deficits Skin: normal color, warm Results & Data Results & Data Vital Signs (Past 12 Hours) Vital Signs Temp Pulse Pulse Resp BP Pulse Ox O2 Del Method 10/09/22 15:27 36.9 C 69 18 116/75 97 Room Air 10/09/22 11:10 36.8 C 68 20 118/74 97 Room Air 10/09/22 08:03 66 10/09/22 07:39 36.6 C 64 18 111/74 97 Room Air Laboratory Results Short CBC 10/08/22 10/09/22 Range/Units 22:33 06:50 WBC 5.25 4.67 L (4.8-10.8) K/ul Hgb 11.7 L 13.6 (12.0-16.0) g/dl Hct 34.0 L 39.4 (37.0-47.0) % Plt Count 239 279 (130-400) K/uL BMP 10/08/22 10/09/22 22:33 06:50 Sodium 135 L 135 L Potassium 3.8 5.0 D Chloride 107 106 Carbon Dioxide 22 22 BUN 14 11 Creatinine 0.45 L 0.54 L Glucose 131 H 155 H Calcium 8.1 L 9.4 Liver Function 10/08/22 Range/Units 22:33 Total Bilirubin 0.3 (0.2-1.0) mg/dl AST 19 (13-39) U/L ALT 22 (7-52) U/L Alkaline Phosphatase 36 (34-104) U/L Albumin 3.4 (3.4-5.0) gm/dl Urine 10/08/22 Range/Units 23:23 Urine Color Yellow Urine Appearance Clear (Clear) Urine pH 6.0 (4.5-7.5) Ur Specific Manson 1.018 (1.000-1.030) Urine Protein Negative (Negative) Urine Glucose (UA) Negative (Negative) (1) Headache, migraine Intractability: not intractable Migraine type: unspecified Status migrainosus presence: without status migrainosus Qualified Code(s): G43.909 - Migraine, unspecified, not intractable, without status migrainosus
[2022-10-09] MEDS: SERTRALINE HCL 100 MG TABLET PO SCH (20:07)
[2022-10-09] MEDS: ATORVASTATIN 40 MG TAB PO SCH (20:07)
[2022-10-10] MEDS: clonazePAM 0.5 MG TAB PO PRN ×2 (01:16→21:28)
--- NOTE | 2022-10-10 05:49 | Electrocardiogram Report ---
Test Reason : Blood Pressure : / mmHG Vent. Rate : 080 BPM Atrial Rate : 080 BPM P-R Int : 144 ms QRS Dur : 094 ms QT Int : 360 ms P-R-T Axes : 058 038 048 degrees QTc Int : 415 ms Normal sinus rhythm Normal ECG When compared with ECG of 16-JUN-2020 18:16, No significant change was found Confirmed by Bogdan Skinner ([id number]) on 10/10/2022 5:49:28 AM Referred By: REFERRED SELF Confirmed By:Bogdan Skinner
[2022-10-10] MEDS: oxyCODONE HCL IR 5 MG TAB (IMMEDIATE RELEASE) PO PRN ×2 (06:06→17:25)
[2022-10-10] MEDS: ACETAMINOPHEN 325 MG TAB PO PRN ×2 (06:06→21:27)
[2022-10-10] MEDS: LORazepam 0.5 MG TAB PO PRN (06:06)
[2022-10-10 06:26] LABS: Hematocrit (blood only) 38.6 % (37.0-47.0); Hemoglobin 13.3 g/dl (12.0-16.0); Mean Corpuscular Hgb Conc 34.5 g/dL (32.0-36.0); Mean Platelet Volume 9.8 fL (9.4-12.4); Platelet Count 306 K/uL (130-400); RDW Coefficient of Variation 11.6 % (11.5-14.5); RDW Standard Deviation 39.5 fL (36.4-46.3); Red Blood Count 4.15 M/uL (4.20-5.40); White Blood Count 8.39 K/ul (4.8-10.8)
[2022-10-10 06:39] LABS: BUN Creatinine Ratio 23.5 (10-20); Calcium 9.3 mg/dl (8.6-10.3); Creatinine Clr Calc Pharmacy 164.9 ml/min; Est GFR (African American) 136.5 ml/min; Est GFR (Non-African American) 117.8 ml/min; Potassium 4.3 mmol/L (3.5-5.1)
[2022-10-10 07:18] LABS: Estimated Average Glucose 111 mg/dl; Hemoglobin A1C 5.5 % (4.5-5.6)
--- NOTE | 2022-10-10 07:33 | Cardiology Progress Note ---
Date of Service October 10, 2022 Assessment & Plan (1) Chest pain: (2) Hypertension: (3) Hyperlipidemia: (4) Headache, migraine: Plan IMPRESSION: 42 year old female admitted for signs and symptoms of acute neurologic complaints possible complex migraine. Chest pains at home in association with marked elevation of blood pressure though without findings consistent with acute coronary ischemia with normal HS troponin, EKGs, and cardiac function on echocardiogram. Has had longstanding hypertension and uses lisinopril plus clonidine for hypertension control. Clonidine once per day with as needed additional dosing. Improved blood pressure control since admission, averages in the 140/90s at home. HTN meds currently on hold. PLAN: 1. Chest pain possible hypertensive urgency: No signs of acute myocardial ischemia or coronary syndrome. Would recommend given multiple risk factors (HTN, HLD, Prior tobacco use, and FHX of CAD) proceeding with stress testing post hospital discharge 1 month. 2. Labile hypertension: Currently utilizing lisinopril 10 mg daily and clonidine 0.1 mg daily- daily dosing of clonidine can precipitate rebound hypertension. Would recommend increasing clonidine to 0.1 mg twice per day given additional potential benefits migraines etc when blood pressures allow/at discharge. Future consideration of adding beta raquel therapy as an outpatient pending clinical course. 3. Hyperlipidemia with recently begun lipid reduction: Discussed potential benefits with patient 4. Complex migraine as per neurology Case discussed with Dr. Watkins. No further recommendations from a cardiology standpoint. I will arrange for cardiology follow up in our office in 4-6 weeks. Admission and Anticipated Discharge Date Admission Date: October 09, 2022 Supervising Physician Co-Signing Physician Notes Assessment and plan as noted above. Blood pressure is variable in the hospital but currently not taking lisinopril or clonidine Discussed hypertension management with patient. Uses clonidine for hypertension but also for alternate reasons If blood pressure remains controlled I will ultimately discontinue clonidine though it may be helpful with migraines, sleep etc. No further cardiac interventions this admission Subjective Complex 42 year old female who presented with signs and symptoms of acute neurologic complaints possible complex migraine as well chest pain in the setting of markedly elevated blood pressure. Cardiac workup as been unremarkable thus far. BP improved since admission. Due to concerns of rebound hypertension with daily dosing of Clonidine, dose increased to 0.1 mg twice daily scheduled at discharge. Upon entrance into the room patient resting in bed. Migraine symptoms remain. Feels fatigued. No acute cardiac concerns. No return of chest pain, denies SOB or palpitations. Telemetry revealing NSR 60-90s. Review of Systems Review of Systems: All systems reviewed & are unremarkable except as noted in HPI & below Physical Exam Constitutional: WD/WN, vitals as above no acute distress Neck: normal visual inspection and trachea midline Respiratory: normal respiratory effort, lungs clear to auscultation no cough Auscultation: no rales, no rhonchi and no wheezes Cardiovascular: RRR, no murmur, no edema Heart Sounds: normal S1 and normal S2 Vessels: radial pulses present; no JVD Extremities: no edema Gastrointestinal (Abdomen): Inspection/Auscultation: abdomen normal to inspection and normal bowel sounds; abdomen not distended and no abdominal edema Percussion/Palpation: + abdomen tender Skin: no rashes, warm and dry Psychiatric: A+Ox3, euthymic affect Results & Data Vital Signs (Past 12 Hours) Vital Signs Temp Pulse Pulse Resp BP Pulse Ox O2 Del Method 10/10/22 03:00 36.5 C 78 22 130/76 96 Room Air 10/09/22 22:05 77 10/09/22 23:00 37.1 C 83 18 132/78 96 Room Air Laboratory Results CBC 10/10/22 Range/Units 05:37 WBC 8.39 (4.8-10.8) K/ul RBC 4.15 L (4.20-5.40) M/uL Hgb 13.3 (12.0-16.0) g/dl Hct 38.6 (37.0-47.0) % Plt Count 306 (130-400) K/uL Comprehensive Metabolic Panel 10/10/22 Range/Units 05:37 Sodium 139 (136-145) mmol/L Potassium 4.3 (3.5-5.1) mmol/L Chloride 108 H (98-107) mmol/L Carbon Dioxide 24 (21-32) mmol/L BUN 12 (6-23) mg/dl Creatinine 0.51 L (0.6-1.2) mg/dl Glucose 127 H (70-99(Fasting)) mg/dl Calcium 9.3 (8.6-10.3) mg/dl Intake and Output 10/09/22 10/10/22 10/10/22 22:59 06:59 14:59 Intake Total 350 / 2328.75 1000 / 2328.75 Output Total 2300 / 5700 1600 / 5700 Balance -1950 / -3371.25 -600 / -3371.25 Intake: IV 999 Lactated Ringer's 1,000 ml @ 1000 / 1000 125 mls/hr IV .Q8H ONE Rx#: [id number] Oral 350 / 350 Output: Urine 2300 / 5700 1600 / 5700 Other: Weight 91.2 kg (1) Chest pain Chest pain type: unspecified Qualified Code(s): R07.9 - Chest pain, unspecified (4) Headache, migraine Intractability: not intractable Migraine type: unspecified Status migrainosus presence: without status migrainosus Qualified Code(s): G43.909 - Migraine, unspecified, not intractable, without status migrainosus
[2022-10-10] MEDS: MULTIVITAMIN TAB PO SCH (08:33)
[2022-10-10] MEDS: ASPIRIN 81 MG ECTAB PO SCH (08:33)
[2022-10-10] MEDS: FAMOTIDINE 20 MG TAB PO SCH ×2 (10:52→21:27)
[2022-10-10] MEDS: predniSONE 20 MG TAB PO SCH (11:13)
[2022-10-10] MEDS: MoRPHine SULFATE 2 MG/ML CARP IV PRN (13:15)
--- NOTE | 2022-10-10 14:59 | Gastrointestinal Consultation ---
Date of Consultation October 10, 2022 Assessment & Plan (1) Abdominal pain: Pt is a 42 yo female admitted w migraine HAs, seen for chronic abd pain, bowel habit inconsistency and bloating. TSH, TTG IgA ab (outpt) normal. CT a/p wo contrast showed moderate fecal material and mild hepatosplenomegaly and otherw ise no acute findings. Pt reports hx of colonoscopy >20 yrs ago w findings of colon polyps. - Daily bowel regimen: Miralax 17g daily - Trial Bentyl 10mg BID prn cramping/pain - Avoid opioids and NSAIDs - Continue avoidance of ETOH, marijuana products. Advised to quit tobacco uses - Will arrange OP EGD/Colonoscopy and GI clinic f/u - GI to sign off; pls recall prn Supervising Physician Co-Signing Physician Notes Patient was seen and examined on 10/10 with JAX Peterson whose note reflects our findings and plan.Outpatient EGD and colonoscopy to be arranged. History of Present Illness Reason for Consultation: Abdominal pain Requesting Physician: Dr. Jony Pang Attending Physician: Dr. Meggan Cline History of Present Illness Pt is a 42 yo female w PMHx of HTN, HLD, MS, cerebral aneurysm, migraines, psoriatic arthritis, mood disorder, IBS, atypical TB, tobacco and marijuana abuses who is currently admitted w HAs, migraines. Cardiology and Neurology following. GI consulted for chronic abd pain and bloating symptoms. Pt reports she had colonoscopy 20+ yrs ago while in college for "stomach problem". Told she has multiple polyps. Denies diagnosis of IBD though mother does have Ulcerative Colitis. No GI malignancy in hx. She reports after eating she gets very bloated and for the next few days bowel habits alternate between diarrhea and constipation. Stools may be dark or light in color. No bonnie rectal bleeding. No n/v, dysphagia, appetite or unexpected weight loss. Denies any food association. TTG IgA Ab in outpt labs normal. TSH normal. CT Abd/pelvis wo contrast showed mild hepatosplenomegaly, and moderate fecal material wo other acute findings. LFTs and lipase pending. Hx of Csection Denies NSAIDs, no current ETOH uses, hx of tobacco use and marijuana use years ago. Allergies Allergy/AdvReac Type Severity Reaction Status Date / Time glatiramer (copolymer 1) Allergy Intermediate hives and Verified 06/16/22 15:29 rash at injection site latex Allergy Intermediate RASH Verified 06/16/22 15:29 mannitol Allergy Intermediate hives and Verified 06/16/22 15:29 rash at injection site Home Medications Medication Instructions Recorded Confirmed Type sertraline 100 mg tablet 100 mg PO HS 06/16/20 10/08/22 History vitamin C 500 mg-multivitamin with 3 tab PO DAILY PRN Cold Symptoms 06/16/20 10/08/22 History minerals chewable tablet (Emergen-C) clonidine HCl 0.1 mg tablet 0.1 mg PO HS 06/16/22 10/08/22 History famotidine 20 mg tablet 20 mg PO BID #20 tabs 06/16/22 10/08/22 Rx lisinopril 10 mg tablet 10 mg PO QAM 06/16/22 10/08/22 History ondansetron 4 mg disintegrating 4 mg PO Q6H PRN nausea and 06/16/22 10/08/22 Rx tablet vomiting #14 tabs atorvastatin 40 mg tablet 40 mg PO HS 10/08/22 10/08/22 History clonazepam 0.5 mg tablet See Rx Instructions .Route .COMPLEX 10/08/22 10/08/22 History Patient History Medical History Acid reflux worsening with Anxiety currently off meds; wants to start them again PP after ; was on Klonopin and Zoloft History of tuberculosis "childhood" - cervical lymph nodes removed; per patient, retesting subsequently negative Hx MRSA infection cultures negative as of last week Intracranial aneurysm neurosurgery monitoring- "Cleared for delivery by whichever means the patient desires. No limitations" per neurosurgery 06/25/18 note but per patient, decision made for c/s to be safe Migraine Multiple sclerosis asymptomatic off medications currently; neurology monitoring : diagnosed 9 years ago Osteoarthritis PCOS (polycystic ovarian syndrome) Surgical History H/O colonoscopy History of open reduction and internal fixation (ORIF) procedure LEFT FIBULA Lillian teeth extracted Family History Father Family history of diabetes mellitus Tremor Grandfather (Paternal) Family history of diabetes mellitus Uncle Family hx of colon cancer Grandmother (Maternal) Stomach cancer Brother Tremor Mother Cancer Social History Smoking Status: Former smoker Tobacco Type: Cigarettes Age Started Using Tobacco: 15; Age Quit Using Tobacco: 41; packs per day: 0.5; Second Hand Exposure: No; Do You Dip or Chew Tobacco: No; Tobacco Cessation Education Requested by Patient: No Hx Alcohol Use: No Hx Substance Use: No Preferred Language: Azeri Communication Ability: Effective Carpet Cleaner Required: No Beliefs That Will Affect Care: None marital status: Single Current Living Situation: Significant Other Current Living Situation Comment: Armando and stepchildren (part-time) current occupational status: employed current occupation: Director [employer] Other Information That Helps Us Care for You: No Feels Safe at Home: Yes Safety Concerns: Feels Safe At This Time Assistive Devices: None Review of Systems Review of Systems: All systems reviewed & are unremarkable except as noted in HPI & below Physical Exam Constitutional: WD/WN, vitals as above well groomed, cooperative and comfortable Eyes: PERRL, conjunctivae normal, anicteric sclerae ENMT: external ear and nose normal, oropharynx normal Respiratory: normal respiratory effort, lungs clear to auscultation Cardiovascular: RRR, no murmur, no edema Gastrointestinal (Abdomen): Soft, TTP mid section, BS present Skin: no rashes, warm and dry no jaundice Psychiatric: A+Ox3, euthymic affect Lymphatic: no lymphedema Results & Data Vital Signs (Past 12 Hours) Vital Signs Temp Pulse Pulse Resp BP Pulse Ox O2 Del Method 10/10/22 12:00 36.8 C 84 20 147/90 H 97 Room Air 10/10/22 07:43 70 10/10/22 07:36 36.6 C 75 18 132/89 97 Room Air 10/10/22 03:00 36.5 C 78 22 130/76 96 Room Air
[2022-10-10] MEDS ORDERED: DICYCLOMINE HCL 10 MG CAP PO PRN (15:04)
[2022-10-10] MEDS ORDERED: MoRPHine SULFATE 2 MG/ML CARP IV PRN (16:10)
--- NOTE | 2022-10-10 16:22 | Hospitalist Progress Note ---
Date of Service October 10, 2022 Assessment & Plan (1) Headache, migraine: Plan: Complicated migraine Strokelike symptoms Concussion Chronic small vessel disease H/O multiple sclerosis, cerebral aneurysm --MRI Brain:Chronic periventricular ischemic demargination changes seen due to small vessel disease. No hemorrhage. Ventricles: Unremarkable. No ventriculomegaly. --Head CTA:No aneurysm or large vessel occlusion. --Neck CTA:No dissection, occlusion, or significant stenosis. --Normal TSH --Hypertension likely contributing as well. ? Rebound hypertension due to clonidine use only at bedtime at home --Appreciate neurology input Better blood pressure control Abstinence from tobacco use Continue aspirin 81 mg daily Avoid triptans Received IV Decadron Started on prednisone taper course--plan to taper over 1 week Follows with [facility] neurology Dr. Melton as outpatient Hypertensive urgency on presentation ? Situational Chest pain likely due to above --Chest CTA:No pulmonary embolism, aortic aneurysm or dissection. Lungs are clear. Small hiatal hernia. --ECHO: EF 60 to 65%. No significant valve disease. No pericardial effusion. Left ventricle wall motion is normal. Borderline concentric LVH. Lisinopril, clonidine held initially due to low BP Appreciate cardiology input Resume lisinopril today Plan to resume clonidine 0.1 mg twice a day if blood pressure uncontrolled Hyperlipidemia Recently started on Lipitor by PCP Continue Lipitor Chronic Abdominal pain Likely irritable bowel syndrome Mild hepatosplenomegaly on CT Small amount of hemorrhagic fluid noted on intraperitoneal space--likely secondary to recent fall H/O PCOS per patient -CT ABD:No acute abdominal process identified. Mild hepatosplenomegaly. Intraperitoneal space: Small amount of hemorrhagic fluid in the pelvis with density measurement of 42 HU. No free air. LFTs within normal limits Lipase normal Started on daily MiraLAX, dicyclomine as needed Appreciate GI input: Minimize NSAIDs, opiates as able, smoking cessation GI recommends EGD, colonoscopy as outpatient If abdominal pain unresolved, will likely need repeat CT abdomen pelvis to monitor hemorrhagic fluid H/O Relapsing remitting multiple sclerosis --follows with [facility] neurology as outpatient. Currently not on any medications Psoriatic arthritis CLL Past tobacco abuse Mood disorder As per records Continue home medications DVT Px: SCDs for now Code Status Full code Admission and Anticipated Discharge Date Admission Date: October 10, 2022 Subjective Patient is seen and examined at bedside Headache better today Reports ongoing chronic abdominal pain associated with cramps, inconsistent bowel movements Also reports pelvic discomfort No recurrence of chest pain Patient request GI evaluation No other complaints Review of Systems Review of Systems: All systems reviewed & are unremarkable except as noted in Subjective Physical Exam 2 Physical Exam: Physical Exam: Vitals signs as noted above General Appearance:Moderately built and nourished, no apparent distress Head: normocephalic, Atraumatic Eyes: normal inspection, EOMI Neck: supple, Trachea midline Respiratory/Chest: Normal breath sounds, o accessory muscle use Cardiovascular: S1, S2, No murmur Abdomen/GI:Soft, mild R sided tender, Bowel sounds present Extremities/Musculoskeletal:normal inspection, no edema Neurologic/Psych:AAOX3, grossly no focal neurological deficits Skin: normal color, warm Results & Data Results & Data Vital Signs (Past 12 Hours) Vital Signs Temp Pulse Pulse Resp BP Pulse Ox O2 Del Method 10/10/22 12:00 36.8 C 84 20 147/90 H 97 Room Air 10/10/22 07:43 70 10/10/22 07:36 36.6 C 75 18 132/89 97 Room Air Laboratory Results Short CBC 10/10/22 Range/Units 05:37 WBC 8.39 (4.8-10.8) K/ul Hgb 13.3 (12.0-16.0) g/dl Hct 38.6 (37.0-47.0) % Plt Count 306 (130-400) K/uL BMP 10/10/22 05:37 Sodium 139 Potassium 4.3 Chloride 108 H Carbon Dioxide 24 BUN 12 Creatinine 0.51 L Glucose 127 H Calcium 9.3 (1) Headache, migraine Intractability: not intractable Migraine type: unspecified Status migrainosus presence: without status migrainosus Qualified Code(s): G43.909 - Migraine, unspecified, not intractable, without status migrainosus
[2022-10-10] MEDS: lisinopril 10 MG TAB PO SCH (17:25)
[2022-10-10] MEDS: ATORVASTATIN 40 MG TAB PO SCH (21:27)
[2022-10-10] MEDS: SERTRALINE HCL 100 MG TABLET PO SCH (21:28)
[2022-10-11] MEDS: oxyCODONE HCL IR 5 MG TAB (IMMEDIATE RELEASE) PO PRN ×2 (01:03→11:06)
[2022-10-11] MEDS: LORazepam 0.5 MG TAB PO PRN ×2 (01:03→08:36)
[2022-10-11 06:50] LABS: BUN Creatinine Ratio 29.4 (10-20); Calcium 9.1 mg/dl (8.6-10.3); Creatinine Clr Calc Pharmacy 163.7 ml/min; Est GFR (African American) 136.5 ml/min; Est GFR (Non-African American) 117.8 ml/min; Potassium 3.7 mmol/L (3.5-5.1)
[2022-10-11] MEDS: predniSONE 20 MG TAB PO SCH (08:31)
[2022-10-11] MEDS: MULTIVITAMIN TAB PO SCH (08:31)
[2022-10-11] MEDS: FAMOTIDINE 20 MG TAB PO SCH (08:31)
[2022-10-11] MEDS: ASPIRIN 81 MG ECTAB PO SCH (08:31)
[2022-10-11] MEDS: lisinopril 10 MG TAB PO SCH (08:32)
[2022-10-11] MEDS: ACETAMINOPHEN 325 MG TAB PO PRN (08:36)
[2022-10-11] MEDS ORDERED: POLYETHYLENE (MIRALAX) 17 GM PACK PO SCH (09:00)
--- NOTE | 2022-10-11 14:26 | Discharge Summary ---
Discharge Summary Date of Service October 11, 2022 Notes For Next Care Provider Medication Changes From Visit -Discontinued Clonidine prn -Resumed Lisinopril -Start Atorvastatin 40mg -Start ASA 81mg daily -Prednisone Taper EOT 10/17 Admission HPI Per Admitting Provider History obtained from patient, family, and records. Medical history significant for hypertension, hyperlipidemia, multiple sclerosis, cerebral aneurysm as per records, history of migraine, psoriatic arthritis as per records,hx CLL, anxiety/mood disorder, IBS, atypical TB status post Rx, past tobacco abuse. Last confinement 2018 under OB service for elective . Last week, patient fell at work resulting in head trauma. No actual LOC but patient had transient blurred vision where she saw "stars". Patient admits to a lot of stress at work over the last few months. Bruising noted over left upper extremity. Patient had trouble getting words out, L UE noted to be weak. Achy headache symptoms reminiscent of migraine attack and neck pain. Pleuritic right-sided chest pain as well as abdominal pain. Denies black/bloody stools. Denies dysuria. Patient evaluated at the ER at [facility] ER after injury. Unremarkable CT of the head, neck, chest, abdomen and pelvis as per records. Concern for possible conversion disorder given recent stressors as per ER provider note. Neurology recommended admission but patient declined. Left upper extremity weakness resolved as per patient upon leaving the ER. Outpatient neurology follow-up recommended. At home, patient had tolerable pain complaints. Last night, patient noted worsening headache symptoms and substernal pain going to her neck. Headache with photophobia. Chest and abdominal pain worsening. Patient denies black/bloody stools. Admits to OTC NSAID intake. SBP 160s which is unusual for her. EMS called to patient's home. Patient noted recurrence of left upper extremity weakness. Stroke alert called upon patient arrival at the ER. Left upper extremity weakness improving but patient still complaining uncontrolled headache, chest pain, abdominal pain. Valproic acid and Decadron administered at the ER. Medical History as above Surgical History : section, left fibula fracture surgery, mastoidectomy left Family History : PVD, breast cancer, DM, fibromyalgia, heart disease, SLE Personal/Social history : Past tobacco abuse, occasional EtOH intake, social service agency director Admission Exam Per Admitting Provider GENERAL: uncomfortable, obese, no respiratory distress SKIN: Normal color, warm HEENT: [place] palpebral conjunctivae, no ptosis, dry buccal mucosa NECK : Supple, minimal cervical tenderness CHEST : CTA, anterior chest wall tenderness HEART : RRR, no obvious murmurs ABDOMEN: Some distention, right-sided abdominal tenderness RECTAL : Intact sphincter, brown stool (FOBT negative) EXTREMITIES : No LE swelling/tenderness, LUE ecchymosis, no other conspicuous deformities noted NEUROLOGIC : Coherent, no facial asymmetry, MMTS BUE 4/5 (R> L), BLE 4/5, pronator drift left Principal Dx & Hospital Course #1 = Principal Diagnosis (1) Complicated migraine: (2) Hypertension: (3) RUQ abdominal pain: Plan Ms. Ana Lakhani is a 42 year old woman who presented with stroke-like LUE weakness iso migraine. Patient sustained a fall and there is concern for post-co ncussive symptoms. Imaging was unremarkable. Neurology consulted and recommended prednisone taper for headache. Course further complicated by initial hypertension. Further history revealed patient taking clonidine as an "as needed basis." Overall, on day of discharge patient was endorsing mildly "groginess" but otherwise ambulating and eating without difficulty. Patient's father present for assistance with home. #Complicated migraine #Strokelike symptoms *resolved #Concussion #Chronic small vessel disease #H/O multiple sclerosis, cerebral aneurysm --MRI Brain:Chronic periventricular ischemic demargination changes seen due to small vessel disease. No hemorrhage. Ventricles: Unremarkable. No ventriculomegaly. --Head CTA:No aneurysm or large vessel occlusion. --Neck CTA:No dissection, occlusion, or significant stenosis. --Normal TSH --Hypertension likely contributing as well. ? Rebound hypertension due to clonidine use only at bedtime at home Better blood pressure control Abstinence from tobacco use Continue aspirin 81 mg daily Avoid triptans Neurology consulted: Started on prednisone taper course--plan to taper over 1 week Follows with [facility] neurology Dr. Melton as outpatient #Hypertensive urgency on presentation #Chest pain likely due to above, resolved --Chest CTA:No pulmonary embolism, aortic aneurysm or dissection. Lungs are clear. Small hiatal hernia. --ECHO: EF 60 to 65%. No significant valve disease. No pericardial effusion. Left ventricle wall motion is normal. Borderline concentric LVH. Cardiology consulted Continue lisinopril Discontinue clonidine 0.1 mg as patient using "as needed" with planned follow up with PCP for further BP management #Hyperlipidemia Recently started on Lipitor by PCP Continue Lipitor #Chronic Abdominal pain Likely irritable bowel syndrome, v consideration of endometriosis given symptoms greater prior to menses Mild hepatosplenomegaly on CT Small amount of hemorrhagic fluid noted on intraperitoneal space--likely secondary to recent fall H/O PCOS per patient -CT ABD:No acute abdominal process identified. Mild hepatosplenomegaly. Intra peritoneal space: Small amount of hemorrhagic fluid in the pelvis with density measurement of 42 HU. No free air. LFTs within normal limits Lipase normal Started on daily MiraLAX, dicyclomine as needed Appreciate GI input: Minimize NSAIDs, opiates as able, smoking cessation Follow up with [facility] for EGD, colonoscopy as outpatient H/O Relapsing remitting multiple sclerosis --follows with [facility] neurology as outpatient. Currently not on any medications Psoriatic arthritis CLL Past tobacco abuse Mood disorder As per records Continue home medications Discharge Exam Constitutional WD/WN, vitals as above Eyes PERRL, conjunctivae normal, anicteric sclerae ENMT external ear and nose normal, oropharynx normal Neck trachea midline, no thyromegaly Respiratory normal respiratory effort, lungs clear to auscultation Cardiovascular RRR, no murmur, no edema Gastrointestinal (Abdomen) normal bowel sounds, soft, nontender, no hepatosplenomegaly Musculoskeletal no cyanosis or clubbing, extremities motor strength 5/5 Skin no rashes, warm and dry Neurologic PERRL, EOMI, accommodation nl, no face palsy, no dysarthria Psychiatric A+Ox3, euthymic affect Updated Medication List Medication Instructions Recorded Confirmed Type sertraline 100 mg tablet 100 mg PO HS 06/16/20 10/08/22 History vitamin C 500 mg-multivitamin with 3 tab PO DAILY PRN Cold Symptoms 06/16/20 10/08/22 History minerals chewable tablet (Emergen-C) clonazepam 0.5 mg tablet See Rx Instructions .Route .COMPLEX 10/08/22 10/08/22 History aspirin 81 mg tablet,delayed 81 mg PO QAM #30 tabs 10/11/22 Rx release atorvastatin 40 mg tablet 40 mg PO HS #30 tabs 10/11/22 Rx dicyclomine 10 mg capsule 10 mg PO BID PRN abdominal pain 10/11/22 Rx #30 caps famotidine 20 mg tablet 20 mg PO BID #60 tabs 10/11/22 Rx lisinopril 10 mg tablet 10 mg PO QAM #30 tabs 10/11/22 Rx multivitamin with folic acid 400 1 tab PO QAM #30 tabs 10/11/22 Rx mcg tablet (Daily-Shawn (with folic acid)) polyethylene glycol 3350 17 gram 17 g PO DAILY #30 ea 10/11/22 Rx oral powder packet (Miralax) prednisone 20 mg tablet See Taper PO DAILY #12 tabs 10/11/22 Rx Hospital Stay Data Consultations 10/08/22 23:23 ED Decision to Admit Stat 10/09/22 02:57 Consult Cardiology Routine Consult Neurology Routine 10/10/22 10:25 Consult Gastroenterology Routine Diagnostic Imagining Performed 10/08/22 22:14 CT angio chest dissec wo/w con Stat CT angio head w con Stat CT angio neck with con Stat CT head/brain wo con Stat 10/09/22 01:20 CT Abd and Pelvis [CT abd pelvis wo con] Stat 10/09/22 01:21 CT forearm LT wo con Stat 10/09/22 02:57 MR brain MS wo/w con Urgent Pending Results Patient Have Any Pending Studies at Discharge: No Discharge Instructions Given to Patient (Per Discharging Provider) For your migraines, we started prednisone taper. You will start taking 30mg for 2 days, then reduce by 10mg every two days ( Thurs 30mg, Sun 30mg, Sat 20mg, Sun 20mg, Mon 10mg, Tue 10mg). Please continue daily Aspirin 81mg. For your blood pressure, please discontinue Clonidine, especially taking it as needed. Continue taking Lisinopril 10mg daily and monitor blood pressures at home. Follow up with PCP. For your cholesterol, continue Lipitor. For your abdominal pain, we will send you with bentyl to take as needed for cramping. GI wished for you to follow up for EGD, Colonoscopy, and further evaluation of your symptoms. Total Time Total Time Spent Total Time Spent (In Minutes): I have personally spent 70 minutes total time today in preparation, patient care, and documentation for this discharge, including the following: independently reviewing and interpreting medical tests/procedures/services, performing med reconciliation,counseling and educating the patient, documenting clinical information, and performing medically appropriate medical examination
== END 2022-10-11 16:34 | disposition home or self-care (01) | DRG 103 ==
LOC: ED 22:11 → 2E 22:11 → SUATTDRO 10-09 01:25 → 2E 10-09 02:04 → SUATTDRO 10-10 14:28

== ENCOUNTER 2024-05-11 07:02 | Observation (INO) ==
--- OUTSIDE RECORDS SUMMARY | 2024-05-11 07:06 | External Medical Summary | Summary of Care ---
Author Name Unknown Organization [facility] Address [address] [place] [address] Phone [phone] Care Team Providers Care Certified Drug Counselor Name Role Phone Clarice Vail MD Primary Care Provid er Reason for Referral * Precert (Within 24 hrs (call dept; emergent)) - Authorized Specialty Diagnoses / Procedures Referred By Contac t Referred To Contact Radiology Diagnoses Parotiditis Pain of left mastoid H/O mastoidectomy Facial pain Facial swelling Procedures CT MAXILLOFACIAL W CONTRAST Kristen Obrien CRNP [address] [place] [address] Phone: tel: fax: Referral ID Status Reason Start Date Expiration Date V isits Requested Visits Authorized [id number] Authorized Precert 05/06/2024 06/06/2024 [id number] * Precert (Within 24 hrs (call dept; emergent)) - Authorized Specialty Diagnoses / Procedures Referred By Contac t Referred To Contact Radiology Diagnoses Parotiditis Pain of left mastoid H/O mastoidectomy Facial pain Facial swelling Left ear pain Procedures CT TEMPORAL BONES W CONTRAST Kristen Obrien CRNP [address] [facility] [place] [address] Phone: tel: fax: Referral ID Status Reason Start Date Expiration Date V isits Requested Visits Authorized [id number] Authorized Precert 05/06/2024 06/06/2024 999 [id number] Reason for Visit * Precert (Within 24 hrs (call dept; emergent)) - Authorized Specialty Diagnoses / Procedures Referred By Bryan t Referred To Contact Radiology Diagnoses Parotiditis Pain of left mastoid H/O mastoidectomy Facial pain Facial swelling Left ear pain Procedures CT TEMPORAL BONES W CONTRAST Kristen Obrien CRNP [address] [facility] [place] [address] Phone: tel: fax: Referral ID Status Reason Start Date Expiration Date V isits Requested Visits Authorized [id number] Authorized Precert 05/06/2024 06/06/2024 [id number] Encounter Details Date Type Department Care Team (Latest Contact Info) Description 05/06/2024 3:58 PM EDT - 05/06/2024 11:59 PM EDT Hospital Encounter Radiology, [address] [place] [address] Arrived Discharge Disposition: Home - Self Care Allergies Active Allergy Reactions Criticality Noted Date Comments Glatiramer Acetate 07/19/2017 Fine rash on chest on day of injection. Protracted redness and swelling at injection site. Latex Rash 04/24/2017 Mannitol High 10/28/2020 Other reaction(s): hives and rash at injection site documented as of this encounter (statuses as of 05/07/2024) Medications Acetaminophen 325 MG Oral Capsule Take by mouth. Active Ondansetron 4 MG Oral Tablet Disintegrating (Zofran) DISSOLVE 1 TABLET ON TONGUE every 8 hours as needed for nausea. 20 Tablet 5 3 Active Lisinopril 20 MG Oral Tablet (Prinivil)Indicatio ns:Essential hypertension Take 1 Tablet by mouth in the morning and 1 Tablet before bedtime. 180 Tablet 3 4 Active Rosuvastatin Calcium 10 MG Oral Tablet (Crestor) Take 1 Tablet by mouth in the morning. 90 Tablet 3 4 Active Repatha SureClick 140 MG/ML Subcutaneous Solution Auto-injector (evolocumab) Inject 140 mg (1 pen) under the skin every 14 days. 6 mL 3 4 Active Sertraline HCl 100 MG Oral Tablet (Zoloft) Take 1 Tablet by mouth at bedtime. 90 Tablet 1 4 Active Mirtazapine 15 MG Oral Tablet (Remeron) Take 1 Tablet by mouth at bedtime. 30 Tablet 2 5 Active clonazePAM 0.5 MG Oral Tablet (KlonoPIN) Take 1 Tablet by mouth 3 times a day as needed for Anxiety. 90 Tablet 2 5 Active Metoprolol Succinate ER 25 MG Oral Tablet Extended Release 24 Hour (toPROL XL)Indications:Esse ntial hypertension Take 1 Tablet by mouth at bedtime. 90 Tablet 1 5 Active Amoxicillin-Pot Clavulanate 875-125 MG Oral Tablet (Augmentin)Indicati ons:Parotiditis,Wendie n of left mastoid,H/O mastoidectomy,Facia l pain,Facial swelling,Left ear pain Take 1 Tablet by mouth in the morning and 1 Tablet before bedtime. Do all this for 10 days. 20 Tablet 5 05/16/19 25 Active predniSONE 10 MG Oral Tablet (Deltasone)Indicati ons:Parotiditis,Wendie n of left mastoid,H/O mastoidectomy,Facia l pain,Facial swelling,Left ear pain Take 5 tabs for 2 days, 4 tabs for 2 days, 3 tabs for 2 days, 2 tabs for 2 days 1 tab for 2 days 30 Tablet 5 Active Hospital, Clinic, or Other Facility Administered Medication Ordered Dose Route Frequency Start Date End Date Status Leuprolide Acetate (Lupron) inj 3.75 mgIndications:Endometriosis in cutaneous scar 3.75 mg IM [id number] 07/06/2023 06/30/2024 Active documented as of this encounter (statuses as of 05/07/2024) Active Problems Problem Noted Date Diagnosed Date Food insecurity 07/23/2023 Overview: Per [facility] Protocol Moderate major depression 07/16/2023 Umbilical hernia without obstruction and without gangrene 07/13/2023 Cerebral microvascular disease 10/13/2022 History of multiple concussions 10/13/2022 Hypertriglyceridemia 09/29/2022 Dyslipidemia, goal LDL below 130 09/29/2022 Tobacco use disorder, mild, in early remission 0 08/22/2021 MEDICATION USE AGREEMENT 08/22/2021 H/O mastoidectomy 07/04/2021 Acute severe vertigo 07/04/2021 Skin hemangioma 12/15/2020 Personal history of CLL (chronic lymphocytic frank kemia) 10/13/2020 History of scoliosis 09/25/2018 Overview (09/25/2018): Edda Adams PA-C from [facility] at [facility] called to let us know that pt is able to have a epidural if she wishes to have a vaginal delivery, but if pt chooses to have a she CANNOT have a spinal block due to scoliosis and CAN ONLY have general anesthesia. Pt did f/u with neuro for aneurysm and per neuro according to Edda Adams they did not see a aneurysm. So therefor pt is able to have a dellivery in any manner. This Is FYI for Doc Sahin due to seeing pt for pre-op 10/16/18. Pt is setup for 10/24/18 with Doc.Sahin PCOS (polycystic ovarian syndrome) 04/08/2018 Seizure 04/02/2015 Overview (08/22/2021): Last Assessment & Plan: Patient's been seizure-free; Ativan when necessary Irritable bowel syndrome 04/02/2015 Overview (08/22/2021): Last Assessment & Plan: Patient should continue to work with her GI specialist and primary care physician. This continued outpatient workup. Was on sulfasalazine prior to admission same on hold for now. Essential hypertension 04/02/2015 Overview (08/22/2021): Last Assessment & Plan: Patient's blood pressure at goal; continue to monitor not on meds prior to admission. Depression 04/02/2015 Overview (08/22/2021): Last Assessment & Plan: Patient will need to have outpatient patient counseling for continued depression. 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 Pt tolerated well. Patricia Montalvo LPN History of anesthesia complications 03/14/2018 10/28/2018 Overview (06/14/2018): 03/14/2017- labile HR and dyspnea. Tobacco smoking affecting pr egnancy in first trimester 03/14/2018 04/12/2018 Overview (03/14/2018): 03/14/2018 - light smoker; averaging 1-2 cigarettes/day. Would like to quit completely by . - Ana Loving CNM TASIA (generalized anxiety disorder) 03/14/2018 10/28/2018 Overview (03/14/2018): 03/14- prior to preg was on Klonopin and Zoloft. D/c on 02/17/2018. Reports so far stable without medication. Pt to report if it changes during - Ana Loving CNM Intracranial aneurysm 03/14/20182018 Overview (03/14/2018): 03/14 - discovered incidentally on MRI scan after taking a fall backwards down a flight of stairs (see MRI excerpt below). Cerebral artery segement 1.1 X1.3 mm. Followed by neuro. - Ana Loving CNM "The bilateral A1 and A2 anterior cerebral artery segments are patent, and without large vessel flow-limiting stenosis. There is a small focal, rounded outpouching arising along the anterior medial aspect of the left A2 anterior cerebral artery segment, measuring roughly 1.1 mm x 1.3 mm on the axial multi-slab imaging. The finding is concerning for a aneurysm, an infundibulum is also included in the differential diagnostic considerations." Fall down stairs 02/17/2018 06/14/2018 Multiple sclerosis affecting , antepartum 08/03/2017 10/29/2020 Adjustment disorder with anxiety 06/14/2009 12/12/2023 Overview (12/12/2023): Anxiety Zoloft, Klonopin discontinued 02/2018 MRSA (methicillin resistant staph aureus) culture positive 12/12/2023 documented as of this encounter (statuses as of 05/07/2024) Immunizations Name Administration Dates Next Due COVID-19 mRNA, LNP-s, No Pre serve, 2-Dose Series (DigitalOcean) 09/14/2020,07/10/2020 DTaP Dipth/Tet/Acell Pertussis (Infanrix), Peds 09/02/1984,01/25/1981,03/05/1980, 980,1979 MMR - Measles/Mumps/Rubella Vaccine 11/19/1980 OPV - Polio Virus Vaccine (Oral) 985,01/25/1981,1979, 980 PPD 01/31/2000 TDAP (age 10 and older)(Boostrix) 08/19/2018 documented as of this encounter Social History Tobacco Use Types Packs/Day Years Used Date Smoking Tobacco: Former Cigarettes 0.5 3 Passive Smoke Exposure: Past Smokeless Tobacco: Never Alcohol Use Standard Drinks/Week Comments Yes 0 (1 standard drink = 0.6 oz pur e alcohol) occasionally PHQ-2 Answer Date Recorded PHQ Adult Total Score 14 07/10/2023 Hunger Vital Sign Answer Date Recorded Within the past 12 months, y ou worried that your food would run out before you got the money to buy more. Never true Within the past 12 months, t he food you bought just didn't last and you didn't have money to get more. Sometimes true Tangier Depression Scale Answer Date Recorded [place] Depression Scale Score 3 11/10/2019 The thought of harming myself has occurred to me . (Pt Reported) 11/10/2019 Childcare Answer Date Recorded Do you feel overwhelmed with taking care of a child, family member or friend? Yes 06/28/2023 Does your family need help f inding childcare? (Household - for ages 0-17 years) Not on file 06/28/2023 Clothing Answer Date Recorded Have you been unable to get clothing when it was really needed? No 06/28/2023 Is your family able to get c lothes or diapers when needed? (Household - for ages 0-17 years) Not on file 06/28/2023 Personal Safety Answer Date Recorded Do you feel unsafe or have concerns for your saf ety? No 06/28/2023 Do you have concerns for you r family's safety? (Household - for ages 0-17 years) Not on file 06/28/2023 Utilities Answer Date Recorded Do you have trouble paying y our heating, water, or electric bill? Yes 06/28/2023 Is your family able to pay t he heat, water, or electric bill? (Household - for ages 0-17 years) Not on file 06/28/2023 Does your family have access to good internet? (Household - for ages 0-17 years) Not on file 06/28/2023 Employment Status Answer Date Recorded Are you unemployed or without regular income? No 06/28/2023 Does the household have a re gular source of income? (Household - for ages 0-17 years) Not on file 06/28/2023 Social Connections Answer Date Recorded How often do you feel lonely or isolated from those around you? Sometimes 06/28/2023 Financial Resource Strain Answer Date R ecorded Do you have any trouble payi ng for your medications, or do you think you might in the future? No 06/28/2023 Does your family have troubl e paying for medicine? (Household - for ages 0-17 years) Not on file 06/28/2023 Transportation Needs Answer Date Record ed READ ONLY Do you have troubl e getting a ride to medical visits or work? Never True 06/28/2023 Does your family have a hard time getting a ride to doctors visits? (Household - for ages 0-17 years) Not on file 06/28/2023 Has lack of transportation k ept you from medical appointments, meetings, work, or from getting things needed for daily living? Check all that apply. (Adult - for ages 18 years and over) Not on file 06/28/2023 Do you (or your family) have trouble finding or paying for a ride (transportation)? (Household - for ages 0-17 years) Not on file 06/28/2023 Housing Stability Answer Date Recorded Do you currently live in a s helter or have no steady place to sleep at night? No 06/28/2023 READ ONLY Do you think you a re at risk of becoming homeless? No 06/28/2023 Does your family worry about paying for your home or becoming homeless? (Household - for ages 0-17 years) Not on file 0 06/28/2023 Are you homeless or worried that you might be in the future? (Adult - for ages 18 years and over) Not on file Are you (or your family) chad eless or worried that you might be in the future? (Household - for ages 0-17 years) Not on file Food Insecurity Answer Date Recorded Do you need food for this week? No 06/28/2023 Are you able to get enough f ood for your family? (Household - for ages 0-17 years) Not on file 06/28/2023 Does your family need food t his week? (Household - for ages 0-17 years) Not on file 06/28/2023 Do you always have enough fo od for your family? (Household - for ages 0-17 years) Not on file 06/28/2023 Food Insecurity Answer Date Recorded Within the past 12 months, y ou worried that your food would run out before you got the money to buy more. Never true Within the past 12 months, t he food you bought just didn't last and you didn't have money to get more. Sometimes true Do you need food for this week? 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 Answer Date of Assessment Author No 07/01/2021 10:40 PM EDT Amy Rios RN * Are you blind or do you have serious difficulty seeing, even when wearing glasses? Answer Date of Assessment Author No 07/01/2021 10:40 PM SILVIAT Amy Rios RN * Do you have serious difficulty walking or climbing stairs? (5 years old or older) Answer Date of Assessment Author Yes 07/01/2021 10:40 PM Amy Ott RN * Do you have difficulty dressing or bathing? (5 years old or older) Answer Date of Assessment Author No 07/01/2021 10:40 PM EDT Amy Rios RN * Because of a physical, mental, or emotional condition, do you have difficulty doing errands alone such as visiting a doctors office or shopping? (15 years old or older) Answer Date of Assessment Author No 07/01/2021 10:40 PM Amy Ott RN documented as of this encounter Mental Status * Because of a physical, mental, or emotional condition, do you have serious difficulty concentrating, remembering, or making decisions? (5 years old or older) Answer Entry Date Author No 07/01/2021 10:40 PM EDT Amy Rios RN documented in this encounter Plan of Treatment Upcoming Encounters Date Type Department Care Team ([facility] st Contact Info) Description 05/09/2024 1:30 PM EDT Telemedicine Psychiatry, [place] [address] [place] [id number] Martita Chahal CRNP [address] [place] [address] 09/08/2024 3:20 PM EDT Office Visit Dermatology [facility] [address] [place] [address] Rhys Mina PA-C [address] [place] [address] Scheduled Procedures Name Priority Associated Diagnoses Date/Ti me COLONOSCOPY FLEXIBLE PROXIMA L DIAGNOSTIC Recall Family history of colon cancer Health Maintenance Due Date Last Done Comments Hepatitis B Vaccine (1 of 3 - 19+ 3-dose series) 05/15/1998 Pneumococcal Vaccine: Pediatrics (0 to 5 Years) and At-Risk Patients (6 to 18 Years and 19+ Years) (1 of 2 - PCV) 05/15/1998 COVID-19 Vaccine (3 - Pfizer risk series) 10/12/2020 09/14/2020, 07/10/2020 Mammogram 06/08/2023 06/07/2022 Influenza Vaccine (FLU shot) (#1) 2023 Depression Monitoring 07/09/2024 07/10/2023 GFR 05/06/2025 05/06/2024, 03/0 08/2023, 11/27/2022, Additional history exists Albumin/Creatinine Ratio 06/07/2025 06/07/2022 Pap Smear 11/07/2025 11/07/2022, 03/14/2018 Diabetes Screening 05/07/2027 05/06/2024, 0 04/19/2023, 11/27/2022, Additional history exists Cervical Cancer Screening 11/08/2027 HPV/Co-Test 11/08/2027 11/07/2022 Colonoscopy 05/17/2028 05/18/2023, 05/18/2023 Lipid Panel 07/02/2028 07/03/2023, 02/13, 11/27/2022, Additional history exists DTap/Tdap Vaccines (7 - Td or Tdap) 08/19/2028 08/19/2018, 09/02/1984, 01/25/1981, Additional history exists HPV (Gardasil) Vaccine Aged Out No lo nger eligible based on patient's age to complete this topic MENINGOCOCCAL (MENACTRA/MENVEO) Aged Out No longer eligible based on patient's age to complete this topic Meningitis B Vaccine (Bexsero/Trumemba) Aged Out No longer eligible based on patient's age to complete this topic documented as of this encounter Medical Devices Not on filedocumented as of this encounter Procedures Procedure Name Priority Date/Time Associated Diagnosis Comments CT TEMPORAL BONES W CONTRAST STAT 05/06/2024 4:36 PM EDT Parotiditis Pain of left mastoid H/O mastoidectomy Facial pain Facial swelling Left ear pain CT MAXILLOFACIAL W CONTRAST STAT 05/06/2024 4:36 PM EDT Parotiditis Pain of left mastoid H/O mastoidectomy Facial pain Facial swelling documented in this encounter Results * CT MAXILLOFACIAL W CONTRAST (05/06/2024 4:36 PM EDT) Anatomical Region Laterality Modality Head, Neck, Sinus Computed Tomog roslyn 05/06/2024 6:31 PM EDT Impressions 05/06/2024 6:29 PM EDT IMPRESSION 1. Mild asymmetric inflammatory changes with mild thickening of the ipsilateral platysmas muscle and possibly mild asymmetric left parotid swelling, can be seen with cellulitis and parotiditis. No evidence of rim-enhancing abscess, sialolithiasis, or ductal dilation. 2. Stable postsurgical changes of left canal wall up mastoidectomy for plugging of the left superior semicircular canal with well aerated mastoidectomy bowl and similar opacification of the remnant mastoid air cells, not significantly changed when compared to prior exam. Narrative 05/06/2024 6:[address] FACE and TEMPORAL BONES WITH CONTRAST - 05/06/2024 HISTORY 43 y/o F left mastoid pain. TECHNIQUE Axial CT images of the face and temporal bones were obtained after the administration of intravenous contrast. Coronal and sagittal reconstructions are provided. COMPARISON MRI C SPINE W WO CONTRAST, ACC: [id number], dated 2022-12-07 12:24:31; CTA NECK, ACC: [id number], dated 2022-10-04 11:19:[address] FACE/TEMPORAL BONES: Mild asymmetric inflammatory changes with mild thickening of the ipsilateral platysmas muscle and possibly mild asymmetric left parotid swelling, can be seen with cellulitis and parotiditis. No evidence of rim-enhancing abscess, sialolithiasis, or ductal dilation. Stable postsurgical changes of left canal wall up mastoidectomy for plugging of the left superior semicircular canal are again noted with well aerated mastoidectomy bowl and similar opacification of the remnant mastoid air cells. Otherwise, the external auditory canal is normal in appearance. The tympanic membrane is not thickened. The middle ear and ossicular chain are within normal limits. The inner ear structures are within normal limits. Right mastoid air cells are clear. Redemonstrated high-riding right jugular bulb with thinning of the sigmoid plate and possible focal extreme bony thinning or dehiscence along the posterior wall of the tympanic cavity, similar to prior exam. Mild mucosal thickening is noted in the bilateral maxillary sinuses. There is a small mucous retention cyst in the left maxillary sinus. Rightward nasal septal deviation with rightward bony spur contacting the inferior turbinate. Procedure Note Blanca Greenfieldoc, DO - 05/06/[address] FACE and TEMPORAL BONES WITH CONTRAST - 05/06/2024 HISTORY 43 y/o F left mastoid pain. TECHNIQUE Axial CT images of the face and temporal bones were obtained after theadministration of intravenous contrast. Coronal and sagittalreconstructions are provided. COMPARISON MRI C SPINE W WO CONTRAST, ACC: [id number], dated 2022-12-07 12:24:31; CTA NECK, ACC: [id number], dated 2022-10-04 11:19:[address] FACE/TEMPORAL BONES: Mild asymmetric inflammatory changes with mild thickening of theipsilateral platysmas muscle and possibly mild asymmetric left parotidswelling, can be seen with cellulitis and parotiditis. No evidence ofrim-enhancing abscess, sialolithiasis, or ductal dilation. 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 Otherwise, the external auditory canal is normal in appearance. Thetympanic membrane is not thickened. The middle ear and ossicular chain arewithin normal limits. The inner ear structures are within normal limits.Right mastoid air cells are clear. Redemonstrated high-riding right jugular bulb with thinning of the sigmoidplate and possible focal extreme bony thinning or dehiscence along theposterior wall of the tympanic cavity, similar to prior exam. Mild mucosal thickening is noted in the bilateral maxillary sinuses.There is a small mucous retention cyst in the left maxillary sinus.Rightward nasal septal deviation with rightward bony spur contacting theinferior turbinate. IMPRESSION IMPRESSION 1. Mild asymmetric inflammatory changes with mild thickening of theipsilateral platysmas muscle and possibly mild asymmetric left parotidswelling, can be seen with cellulitis and parotiditis. No evidence ofrim-enhancing abscess, sialolithiasis, or ductal dilation. 2. 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 us Kristen LUKENP RAD CT Lexi l Result * CT TEMPORAL BONES W CONTRAST (05/06/2024 4:36 PM EDT) Anatomical Region Laterality Modality Head, Sinus, Neck Computed Tomog roslyn 05/06/2024 6:31 PM EDT Impressions 05/06/2024 6:29 PM EDT IMPRESSION 1. Mild asymmetric inflammatory changes with mild thickening of the ipsilateral platysmas muscle and possibly mild asymmetric left parotid swelling, can be seen with cellulitis and parotiditis. No evidence of rim-enhancing abscess, sialolithiasis, or ductal dilation. 2. Stable postsurgical changes of left canal wall up mastoidectomy for plugging of the left superior semicircular canal with well aerated mastoidectomy bowl and similar opacification of the remnant mastoid air cells, not significantly changed when compared to prior exam. Narrative 05/06/2024 6:[address] FACE and TEMPORAL BONES WITH CONTRAST - 05/06/2024 HISTORY 43 y/o F left mastoid pain. TECHNIQUE Axial CT images of the face and temporal bones were obtained after the administration of intravenous contrast. Coronal and sagittal reconstructions are provided. COMPARISON MRI C SPINE W WO CONTRAST, ACC: [id number], dated 2022-12-07 12:24:31; CTA NECK, ACC: [id number], dated 2022-10-04 11:19:[address] FACE/TEMPORAL BONES: Mild asymmetric inflammatory changes with mild thickening of the ipsilateral platysmas muscle and possibly mild asymmetric left parotid swelling, can be seen with cellulitis and parotiditis. No evidence of rim-enhancing abscess, sialolithiasis, or ductal dilation. Stable postsurgical changes of left canal wall up mastoidectomy for plugging of the left superior semicircular canal are again noted with well aerated mastoidectomy bowl and similar opacification of the remnant mastoid air cells. Otherwise, the external auditory canal is normal in appearance. The tympanic membrane is not thickened. The middle ear and ossicular chain are within normal limits. The inner ear structures are within normal limits. Right mastoid air cells are clear. Redemonstrated high-riding right jugular bulb with thinning of the sigmoid plate and possible focal extreme bony thinning or dehiscence along the posterior wall of the tympanic cavity, similar to prior exam. Mild mucosal thickening is noted in the bilateral maxillary sinuses. There is a small mucous retention cyst in the left maxillary sinus. Rightward nasal septal deviation with rightward bony spur contacting the inferior turbinate. Procedure Note Ly, Blanca Luz Maria Sabine, DO - 05/06/[address] FACE and TEMPORAL BONES WITH CONTRAST - 05/06/2024 HISTORY 43 y/o F left mastoid pain. TECHNIQUE Axial CT images of the face and temporal bones were obtained after theadministration of intravenous contrast. Coronal and sagittalreconstructions are provided. COMPARISON MRI C SPINE W WO CONTRAST, ACC: [id number], dated 2022-12-07 12:24:31; CTA NECK, ACC: [id number], dated 2022-10-04 11:19:[address] FACE/TEMPORAL BONES: Mild asymmetric inflammatory changes with mild thickening of theipsilateral platysmas muscle and possibly mild asymmetric left parotidswelling, can be seen with cellulitis and parotiditis. No evidence ofrim-enhancing abscess, sialolithiasis, or ductal dilation. 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 Otherwise, the external auditory canal is normal in appearance. Thetympanic membrane is not thickened. The middle ear and ossicular chain arewithin normal limits. The inner ear structures are within normal limits.Right mastoid air cells are clear. Redemonstrated high-riding right jugular bulb with thinning of the sigmoidplate and possible focal extreme bony thinning or dehiscence along theposterior wall of the tympanic cavity, similar to prior exam. Mild mucosal thickening is noted in the bilateral maxillary sinuses.There is a small mucous retention cyst in the left maxillary sinus.Rightward nasal septal deviation with rightward bony spur contacting theinferior turbinate. IMPRESSION IMPRESSION 1. Mild asymmetric inflammatory changes with mild thickening of theipsilateral platysmas muscle and possibly mild asymmetric left parotidswelling, can be seen with cellulitis and parotiditis. No evidence ofrim-enhancing abscess, sialolithiasis, or ductal dilation. 2. 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 us Kristen CAMARA RAD CT Lexi l Result documented in this encounter Visit Diagnoses Diagnosis Parotiditis Sialoadenitis Pain of left mastoid H/O mastoidectomy Other postprocedural status Facial pain Headache Facial swelling Swelling, mass, or lump in head and neck Left ear pain Otalgia, unspecified documented in this encounter Administered Medications Inactive Administered Medications - up to 3 most recent administrations Medication Order MAR Action Action Date Dose Rate Site Iopamidol (Isovue 370) inj 80 mL 80 mL, Intravenous, ONCE, On Sun05/06/24 at 1638, For 1 dose, Radiology Medication Routing (Non-IR) Given 05/06/2024 4:36 PM EDT 80 mL documented in this encounter Advance Directives * Full Code (Latest Code Status on File) Date Activated Date Inactivated Comments 07/01/2021 8:13 PM 07/04/2021 10:34 PM This order reflects the patients wishes and were consensually agreed upon. * Full Code Date Activated Date Inactivated Comments 02/17/2018 5:01 PM 02/19/2018 5:09 PM Question Answer Comments Discussion of Advance Directives occurred with: Not Discussed Does the patient have a Living Will? No Does the patient have Health Care Power of Attor chris? No Care Teams Certified Drug Counselor Relationship Specialty Start Date End Date Clarice Vail MD [address] [address] PCP - General Family Medicine 05/06/24 documented as of this encounter
--- OUTSIDE RECORDS SUMMARY | 2024-05-11 07:07 | External Medical Summary | Summary of Care ---
Author Name Unknown Organization [facility] Address [address] [place] [address] Phone [phone] Care Team Providers Care Au Pair Name Role Phone Clarice Vail MD Primary Care Provid er Encounter Details Date Type Department Care Team (Late st Contact Info) Description 05/07/2024 Telephone [facility] [address] [place] [phone] Rock Russo PA-C [address] [employer] [facility] [place] [address] Allergies Active Allergy Reactions Criticality Noted Date [...] mgIndications:Endometriosis in cutaneous scar 3.75 mg IM [id number] 07/06/2023 06/30/2024 Active documented as of this encounter (statuses as of 05/07/2024) Active Problems Problem Noted Date Diagnosed Date Food insecurity 07/23/2023 Overview: Per [facility] Protocol Moderate major depression 07/16/2023 Umbilical [...] 09/25/2018 Overview (09/25/2018): Edda Adams PA-C from [facility] at [facility] called to let us know that pt [...] ear 07/04/2021 12/12/2023 Psoriatic arthritis 11/05/2018 10/07/19 Carrier of group B Streptococcus 10/10/2018 10/28/2018 [...] mRNA, LNP-s, No Pre serve, 2-Dose Series (Novadiol) 09/14/2020,07/10/2020 DTaP Dipth/Tet/Acell Pertussis (Infanrix), Peds 09/02/1984,01/25/1981,03/05/1980, [...] have money to get more. 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 She confirmed understanding. * Telephone Encounter - Rock Russo PA-C - 05/07/2024 9:52 AM EDT Please reach out to patient and let her know that with worsening symptoms and and now her L eye becoming affected, recommend going to the ER for further management. documented in this encounter Plan of Treatment Upcoming Encounters Date Type Department Care Team (Late st Contact Info) Description 05/09/2024 1:30 PM EDT Telemedicine Psychiatry, [place] [address] [place] [phone] Martita Chahal CRNP [address] [place] [address] 09/08/2024 3:20 PM EDT Office Visit Dermatology [address] [phone] Rhys Mina PA-C [address] [place] [id number] Scheduled Procedures Name Priority Associated Diagnoses Date/Ti [...] Not on filedocumented as of this encounter Advance Directives * Full Code [...] Power of Attor chris? No Care Teams Au Pair Relationship Specialty Start Date End Date Clarice Vail MD [address] [address] PCP - General Family Medicine 05/06/24 documented as of this encounter
--- OUTSIDE RECORDS SUMMARY | 2024-05-11 07:07 | External Medical Summary | Summary of Care ---
Author Name Unknown Organization [facility] Address [address] [place] [address] Phone [phone] Care Team Providers Care Lace Roller Name Role Phone Clarice Vail MD Primary Care Provid er Encounter Details Date Type Department Care Team (Late st Contact Info) Description 05/07/2024 Telephone [facility] [address] [place] [phone] Rock Russo PA-C [email or web address] [place] [address] Allergies Active Allergy Reactions Criticality Noted Date [...] mgIndications:Endometriosis in cutaneous scar 3.75 mg IM [id number] 07/06/2023 06/30/2024 Active documented as of this [...] 09/25/2018 Overview (09/25/2018): Edda Adams PA-C from [facility] called to let us know that pt [...] mRNA, LNP-s, No Pre serve, 2-Dose Series (Blossom) 09/14/2020,07/10/2020 DTaP Dipth/Tet/Acell Pertussis (Infanrix), Peds 09/02/1984,01/25/1981,03/05/1980, [...] have money to get more. 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 No Care Teams Lace Roller Relationship Specialty Start Date End Date Clarice Vail MD [address] [address] PCP - General Family Medicine 05/06/24 documented as of this encounter
--- NOTE | 2024-05-11 08:12 | Emergency Department Note ---
History of Present Illness General Chief complaint: Skin Problem Stated complaint: FACIAL PAIN,HEADACHE,NAUSEA,CELULITIS ON FACE Time Seen by Provider: 05/11/24 07:13 History of Present Illness Maximum Pain Intensity: 10 This 43-year-old female presents today for reevaluation of facial cellulitis and parotitis. The patient states her symptoms have been present for 10 days. She was initially placed on oral Augmentin but her symptoms became worse. She was seen here 4 days ago and given an IV dose of Unasyn. She states her symptoms improved significantly for 1 day and then proceeded to get worse. She is now complaining of significant headache, spreading rash, bilateral facial pain, and neck discomfort. She was told to return to the ED for any worsening symptoms, and now presents for further treatment. She states her temperature last night was 103. She has been alternating Tylenol and Motrin [id number]. She is now afebrile. No nausea, vomiting, diarrhea, rhinorrhea, cough, chest pain, or shortness of breath. She states it is uncomfortable to open her jaw. She has not been eating much. She states she is trying to drink to maintain her hydration but is not sure she is staying adequately hydrated. No additional complaints. Home Medications Medication Instructions Recorded Confirmed Type sertraline 100 mg tablet 100 mg PO HS 06/16/20 05/11/24 History vitamin C 500 mg-multivitamin with 3 tab PO DAILY PRN Cold Symptoms 06/16/20 05/11/24 History minerals chewable tablet (Emergen-C) clonazepam 0.5 mg tablet 0.5 mg PO TID PRN Other 10/08/22 05/11/24 History aspirin 81 mg tablet,delayed 81 mg PO QAM #30 tabs 10/11/22 05/11/24 Rx release multivitamin with folic acid 400 1 tab PO QAM #30 tabs 10/11/22 05/11/24 Rx mcg tablet (Daily-Shawn (with folic acid)) evolocumab 140 mg/mL subcutaneous 140 mg subcut UD 06/24/23 05/11/24 History pen injector (Radha Tubbs) lisinopril 10 mg tablet 20 mg PO UD 06/24/23 05/11/24 History triamcinolone acetonide 0.1 % 1 applic topical UD 06/24/23 05/11/24 History topical cream acetaminophen 325 mg tablet 325 mg PO QID PRN Pain 08/13/23 05/11/24 History ibuprofen 200 mg tablet 200 mg PO Q6H PRN Pain 08/13/23 05/11/24 History metoprolol tartrate 25 mg tablet 25 mg PO HS 08/13/23 05/11/24 History rosuvastatin 10 mg tablet 10 mg PO UD 08/13/23 05/11/24 History ibuprofen 800 mg tablet 800 mg PO Q8H PRN pain #30 tabs 08/24/23 05/11/24 Rx oxycodone-acetaminophen 5 mg-325 1 tab PO Q4H PRN pain #10 tabs 08/24/23 05/11/24 Rx mg tablet (Percocet) oxycodone 5 mg tablet 5 mg PO Q6H PRN pain #15 tabs 05/07/24 05/11/24 Rx hydrocodone 5 mg-acetaminophen 325 2 tab PO UD PRN pain 05/11/24 05/11/24 History mg tablet prednisone 10 mg tablet 10 mg PO DIRECTED 05/11/24 05/11/24 History cephalexin 500 mg capsule 500 mg PO QID #20 caps 05/12/24 Rx Allergies Allergy/AdvReac Type Severity Reaction Status Date / Time glatiramer (copolymer 1) Allergy Intermediate hives and Verified 08/24/23 10:32 rash at injection site latex Allergy Intermediate RASH Verified 08/24/23 10:32 mannitol Allergy Intermediate hives and Verified 08/24/23 10:32 rash at injection site Past Med/Surg History Problem List (Updated 05/13/24 @ 20:36 by Jh Johnson PA-C) Cellulitis of face (Acute) Acute parotitis (Acute) Postop check Chronic cerebral ischemia Concussion Complicated migraine Hyperlipidemia Hypertension delivery delivered Multiple sclerosis affecting Cerebral aneurysm Premature rupture of membranes Encounter for pre-operative examination Multiple sclerosis asymptomatic off medications currently; neurology monitoring : diagnosed 9 years ago Psoriatic arthritis Abdominal pain RUQ abdominal pain Medical History Hx of concussion Depression Psoriatic arthritis History of COVID-19 (2021) no hosp; resolved Hx of chest pain (09/2022) r/t htn; follows w/ [facility] Multiple sclerosis asymptomatic off medications currently; neurology monitoring Hyperlipidemia HTN (hypertension) Stroke-like symptoms (09/2022) r/t hypertensive emergency @ [facility] Hx MRSA infection (2011) hx-- wound upper thigh PCOS (polycystic ovarian syndrome) History of tuberculosis "childhood" - cervical lymph nodes removed; per patient, retesting subsequently negative Migraine Acid reflux stable Anxiety Osteoarthritis Intracranial aneurysm hx- repaired >>>2021 neurosurgery monitoring- "Cleared for delivery by whichever means the patient desires. No limitations" per neurosurgery 06/25/18 note but per patient, decision made for c/s to be safe Surgical History Hx of section Hx of cerebral aneurysm repair (2021) [facility] H/O colonoscopy History of open reduction and internal fixation (ORIF) procedure LEFT FIBULA [place] teeth extracted Family History Father Family history of diabetes mellitus Tremor Grandfather (Paternal) Family history of diabetes mellitus Uncle Family hx of colon cancer Grandmother (Maternal) Stomach cancer Brother Tremor Mother Cancer Social History Smoking Status: Current every day smoker Tobacco Type: Cigarettes Age Started Using Tobacco: 15; Age Quit Using Tobacco: 41; packs per day: 0.5; Second Hand Exposure: Yes; Do You Dip or Chew Tobacco: No; Tobacco Cessation Education Requested by Patient: Yes Hx Alcohol Use: Yes Alcohol type: beer and wine Hx Substance Use: No Preferred Language: Israeli Communication Ability: Effective Purchasing And Claims Supervisor Required: No Beliefs That Will Affect Care: None marital status: Single Current Living Situation: Spouse Current Living Situation Comment: Arm[facility] current occupational status: employed current occupation: Director ar Skills Other Information That Helps Us Care for You: No Feels Safe at Home: Yes Safety Concerns: Feels Safe At This Time Assistive Devices: None Review of Systems A total of 10 systems reviewed and were otherwise negative Physical Exam Vital Signs Vital Signs - 24 hr 05/11/24 07:06 Temperature 36.8 C Temperature Source Oral Pulse Rate 76 Pulse Rhythm Regular Pulse Strength Normal Respiratory Rate 18 Respiratory Effort / Characteristics Non-Labored Spontaneous Respiratory Depth Normal Respiratory Pattern Regular Blood Pressure 126/85 Blood Pressure Mean 98 Blood Pressure Position Sitting Pulse Oximetry 96 Oxygen Delivery Method Room Air Sepsis Recent Fever Within 48 Hours No Sepsis New/Unexplained Change in Mental Status No Sepsis Action Taken by Nursing No Action Required General: Well-developed, well-nourished, middle-aged female, in obvious discomfort. No acute distress. Laying in bed. Alert and oriented. Looks visibly uncomfortable. Skin: Warm dry with good turgor. She has erythema present on the left cheek, extending across the bridge of her nose and to the right cheek. There is also mild erythema on her chin. Left cheek has generalized edema, worst at the angle of the mandible. No significant edema on the right cheek or parotid. There is mild edema in the upper and lower lids of the left eye without erythema. She has skin sensitivity across the left side of the face and nasal bridge. No sensitivity on her chin, forehead, or ears. HEENT: Normocephalic atraumatic. Eyes PERRLA, EOMI. No conjunctiva or scleral injection. Ears TMs intact bilaterally with good light reflexes. No erythema or bulging. No hemotympanum. Canals are patent. Nares patent bilaterally without turbinate enlargement. No significant drainage. No epistaxis. Oropharynx without erythema or exudate. Uvula midline, oral mucosa moist. No lesions present. Lymphatics are palpated with mild anterior chain enlargement. No posterior chain enlargement or tenderness. Heart: Heart RRR. No MGR. Peripheral pulses are 2+. Lungs: Lungs are clear to auscultation. No crackles rhonchi or wheezing. Good air movement. The patient is able to take a deep breath. Abdomen: Abdomen was inspected, auscultated, and palpated. Bowel sounds present x 4. Soft, nontender to palpation. No hepato-splenomegaly. No masses noted. No rebound. Musculoskeletal: Gross motor function of the upper and lower extremities is intact and unremarkable. She has intact motor function of her neck with slow but good range of motion for flexion, rotation, and lateral flexion. Neurologic: Gross sensation is intact across the upper and lower extremities by soft touch. Course Administered Medications Discontinued Medications Acetaminophen (Acetaminophen 325 Mg Tab) 325 mg PO QID PRN PRN Reason: Pain Stop: 06/10/24 10:16 Last Admin: 05/12/24 12:32 Dose: 325 mg Documented By: Admin: 05/12/24 06:25 Dose: 325 mg Documented By: Admin: 05/11/24 20:51 Dose: 325 mg Documented By: SAMANTHA Hydrocodone Bitart/Acetaminophen (Hydrocodone/Acetamophen 5/325mg Tab) 2 tab PO UD PRN PRN Reason: pain Stop: 05/25/24 10:16 Last Admin: 05/11/24 10:45 Dose: 2 tab Documented By: RICHARD Hydrocodone Bitart/Acetaminophen (Hydrocodone/Acetamophen 5/325mg Tab) 2 tab PO Q6H PRN PRN Reason: pain Stop: 05/25/24 10:16 Last Admin: 05/12/24 09:09 Dose: 2 tab Documented By: Admin: 05/12/24 02:26 Dose: 2 tab Documented By: Admin: 05/11/24 16:41 Dose: 2 tab Documented By: RICHARD Aspirin (Aspirin 81 Mg Ectab) 81 mg PO QAM [facility] Stop: 06/10/24 10:16 Last Admin: 05/12/24 08:32 Dose: 81 mg Documented By: Admin: 05/11/24 10:45 Dose: 81 mg Documented By: RICHARD Cephalexin HCl (Cephalexin 500 Mg Cap) 500 mg PO QID [facility]; Protocol Stop: 05/19/24 12:59 Last Admin: 05/12/24 13:07 Dose: 500 mg Documented By: ANTHONY Hydromorphone HCl (Hydromorphone Inj 0.5 Mg/0.5 Ml Syr) 0.5 mg IV NOW STA Stop: 05/12/24 13:09 Last Admin: 05/12/24 13:14 Dose: 0.5 mg Documented By: ANTHONY Ampicillin Sodium/Sulbactam Sodium (Unasyn) 3,000 mg in 100 mls @ 200 mls/hr IV Q6H [facility] Stop: 05/18/24 14:29 Last Infusion: 05/12/24 13:45 Dose: Infused Documented By: Admin: 05/12/24 13:14 Dose: 200 mls/hr Documented By: Infusion: 05/12/24 09:10 Dose: Infused Documented By: Admin: 05/12/24 08:32 Dose: 200 mls/hr Documented By: Infusion: 05/12/24 02:51 Dose: Infused Documented By: Admin: 05/12/24 02:19 Dose: 200 mls/hr Documented By: Infusion: 05/11/24 21:25 Dose: Infused Documented By: Admin: 05/11/24 20:51 Dose: 200 mls/hr Documented By: Infusion: 05/11/24 15:10 Dose: Infused Documented By: Admin: 05/11/24 14:40 Dose: 200 mls/hr Documented By: RICHARD Sodium Chloride (Nss) 1,000 mls @ 125 mls/hr IV .Q8H [facility] Stop: 05/12/24 08:29 Last Infusion: 05/11/24 14:34 Dose: Infused Documented By: Admin: 05/11/24 08:28 Dose: 125 mls/hr Documented By: ANGEL Ampicillin Sodium/Sulbactam Sodium (Unasyn) 3,000 mg in 100 mls @ 200 mls/hr IV ONE STA; Protocol Stop: 05/11/24 08:55 Last Infusion: 05/11/24 09:15 Dose: Infused Documented By: Admin: 05/11/24 08:45 Dose: 200 mls/hr Documented By: ANGEL Ibuprofen (Ibuprofen 800 Mg Tab) 800 mg PO Q8H PRN PRN Reason: pain Stop: 06/10/24 10:16 Last Admin: 05/12/24 08:32 Dose: 800 mg Documented By: Admin: 05/11/24 23:09 Dose: 800 mg Documented By: Admin: 05/11/24 13:23 Dose: 800 mg Documented By: RICHARD Ketorolac Tromethamine (Ketorolac Tromethamine 15 Mg/Ml Vial) 15 mg IV NOW ONE Stop: 05/11/24 07:29 Last Admin: 05/11/24 08:26 Dose: 15 mg Documented By: ANGEL Lisinopril (Lisinopril 20 Mg Tab) 20 mg PO HS [facility] Stop: 06/10/24 20:59 Last Admin: 05/11/24 20:51 Dose: 20 mg Documented By: SAMANTHA Metoprolol Tartrate (Metoprolol Tartrate 25 Mg Tab) 25 mg PO HS [facility] Stop: 06/10/24 20:59 Last Admin: 05/11/24 20:51 Dose: 25 mg Documented By: SAMANTHA Multivitamins (Multivitamin Tab) 1 tab PO QAM [facility] Stop: 06/10/24 10:16 Last Admin: 05/12/24 08:32 Dose: 1 tab Documented By: Admin: 05/11/24 10:45 Dose: 1 tab Documented By: RICHARD Rosuvastatin Calcium (Rosuvastatin Calcium 10 Mg Tab) 10 mg PO [facility] Stop: 06/10/24 20:59 Last Admin: 05/11/24 20:51 Dose: 10 mg Documented By: SAMANTHA Sertraline HCl (Sertraline Hcl 100 Mg Tablet) 100 mg PO [facility] Stop: 06/10/24 20:59 Last Admin: 05/11/24 20:51 Dose: 100 mg Documented By: SAMANTHA Medical Decision Making Differential Diagnosis Facial cellulitis, periorbital cellulitis, parotitis, strep pharyngitis, dental abscess, sinusitis, shingles, meningitis. Medical Records Attestation: I reviewed the patient's medical records. Home Medications Current Medication List: was personally reviewed by me Laboratory Data CBC obtained today shows Normal white count, normal H&H, and normal platelets. Chemistry panel obtained today shows Sodium 135, potassium 4.4, chloride 104 and CO2 of 24. Glucose today is 119. BUN of 12 with creatinine 0.55. Normal LFTs. CRP and ESR obtained today show Elevated sed rate of 21. Normal CRP. Blood Cultures are pending. 05/12/24 06:01 05/12/24 06:01 Lab Results 05/11/24 Range/Units 07:54 WBC 5.81 (4.8-10.8) K/ul RBC 4.74 (4.20-5.40) M/uL Hgb 14.8 (12.0-16.0) g/dl Hct 43.3 (37.0-47.0) % MCV 91.4 (80.0-100.0) fL MCH 31.2 (25.0-34.0) pg MCHC 34.2 (32.0-36.0) g/dL RDW Std Deviation 40.4 (36.4-46.3) fL RDW Coeff of Latoya 12.0 (11.5-14.5) % Plt Count 288 (130-400) K/uL MPV 10.1 (9.4-12.4) fL Immature Gran % (Auto) 0.3 % Neut % (Auto) 49.7 % Lymph % (Auto) 41.0 % [place] % (Auto) 5.7 % Eos % (Auto) 2.8 % Baso % (Auto) 0.5 % Neut # (Auto) 2.89 (1.40-6.50) K/uL Lymph # (Auto) 2.38 (1.20-3.40) K/uL [place] # (Auto) 0.33 (0.11-0.59) K/uL Eos # (Auto) 0.16 (0.00-0.50) K/uL Baso # (Auto) 0.03 (0.00-0.20) K/uL Immature Gran # (Auto) 0.02 (0.01-0.20) K/uL ESR 21 H (0-20) mm/hr Sodium 135 L (136-145) mmol/L Potassium 4.4 (3.5-5.1) mmol/L Chloride 104 (98-107) mmol/L Carbon Dioxide 24 (21-32) mmol/L Anion Gap 7 (3-11) BUN 12 (6-23) mg/dl Creatinine 0.55 L (0.6-1.2) mg/dl Est Cr Clr Drug Dosing 152.9 ml/min eGFR 115.84 BUN/Creatinine Ratio 21.8 H (10-20) Glucose 119 H (70-99(Fasting)) mg/dl Calcium 9.4 (8.6-10.3) mg/dl Total Bilirubin 0.5 (0.2-1.0) mg/dl AST 40 H (13-39) U/L ALT 41 (7-52) U/L Alkaline Phosphatase 63 (34-104) U/L C-Reactive Protein < 0.50 (0-0.5) mg/dl Total Protein 7.4 (6.0-8.3) gm/dl Albumin 4.5 (3.4-5.0) gm/dl Globulin 2.9 (2.5-4.0) gm/dl Albumin/Globulin Ratio 1.6 (0.9-2) ECG Data Additional Comments: EKG obtained today shows a normal sinus rhythm with a rate of 61. No acute ST or T wave changes are present. This was reviewed with Dr. Farris. Prescription Drug Monitoring [place] Drug Monitoring Program reviewed and no issues identified Blood Pressure Blood Pressure Findings: Normal blood pressure MDM Narrative The patient was evaluated in room C6. Conservative care measures were discussed. IV was established. Labs were obtained. Blood cultures x 2 were also obtained. She was placed on a production support analyst and remained in normal sinus rhythm with a rate in the 60s. No ectopy was noted. EKG was obtained today and was unremarkable. Her lab work showed an elevated sedimentation rate but normal CRP. No elevation in white count. The rest of her labs were unremarkable. Given her advancing cellulitis, she has failed outpatient treatment with oral antibiotics and a one-time IV dose. Admission was recommended for additional IV antibiotics. The patient was in agreement. She was given Toradol 15 mg IV for pain control. Her discomfort improved. Dr. Carey from the hospitalist service was consulted. Please see his dictation for final management. She remained stable while in the ED. Impression & Plan Cellulitis of face Admission for IV antibiotics. Hospitalist service was consulted. Discharge Plan Visit Data Chief Complaint: Skin Problem Stated Complaint: FACIAL PAIN,HEADACHE,NAUSEA,CELULITIS ON FACE ED Provider: Thomas Farris ED Midlevel Provider: Jh Johnson Discharge Problem: Cellulitis of face Patient Disposition: Admitted As Inpatient Condition: Good Discharge Instructions Interventions: ED Discharge Assessment Last Done: 05/11/24 09:26
[2024-05-11 08:15] LABS: Basophils # (auto) 0.03 K/uL (0.00-0.20); Basophils % (auto) 0.5 %; Eosinophils # (auto) 0.16 K/uL (0.00-0.50); Eosinophils % (auto) 2.8 %; Hematocrit (blood only) 43.3 % (37.0-47.0); Hemoglobin 14.8 g/dl (12.0-16.0); Immature Granulocytes # (auto) 0.02 K/uL (0.01-0.20); Immature Granulocytes % (auto) 0.3 %; Lymphocytes # (auto) 2.38 K/uL (1.20-3.40); Mean Corpuscular Hemoglobin 31.2 pg (25.0-34.0); Mean Corpuscular Hgb Conc 34.2 g/dL (32.0-36.0); Mean Corpuscular Volume 91.4 fL (80.0-100.0); Mean Platelet Volume 10.1 fL (9.4-12.4); Monocytes # (auto) 0.33 K/uL (0.11-0.59); Monocytes % (auto) 5.7 %; Neutrophils # (auto) 2.89 K/uL (1.40-6.50); Neutrophils % (auto) 49.7 %; Platelet Count 288 K/uL (130-400); RDW Standard Deviation 40.4 fL (36.4-46.3); Red Blood Count 4.74 M/uL (4.20-5.40); White Blood Count 5.81 K/ul (4.8-10.8)
[2024-05-11] MEDS: KETOROLAC TROMETHAMINE 15 MG/ML VIAL IV ONE (08:26)
[2024-05-11] MEDS: SODIUM CHLORIDE 0.9% 1,000 ML IV SCH (08:28)
--- NOTE | 2024-05-11 08:36 | History & Physical Report ---
Date of Service May 11, 2024 Assessment & Plan (1) Cellulitis of face: Plan: Left facial swelling and redness for about 10 days Failed outpatient treatment with Augmentin Spreading cellulitis involving whole of the face and is spreading from left to right side Started on intravenous Unasyn and will be admitted for observation Blood cultures were taken Questionable parotitis and she will be given adequate hydration to prevent further complication with parotitis (2) Hypertension: Plan: Blood pressure remains stable Will continue current medications (3) Cerebral aneurysm: Plan: History of cerebral aneurysm without any acute issues now (4) Multiple sclerosis: Plan: History of multiple sclerosis affecting left leg mainly Not having any issues at this time and has not been taking medications for some time (5) Hyperlipidemia: Plan: Continue statin Other significant medical conditions remained stable and appropriate medications will be continued for those DVT prophylaxis SCDs for now and advised to ambulate CODE STATUS Full History of Present Illness Chief Complaint: Increasing Left facial pain, redness and fever for the last 3 days Primary Care Provider: Clarice Vail MD she is 43-year-old female with significant past medical history of hypertension, hyperlipidemia, multiple sclerosis, cerebral aneurysm, migraine, history of CLL, anxiety/mood disorders apparently has been complaining of left facial redness and swelling for the last 6 to 10 days. She was getting oral Augmentin and was evaluated in the emergency room on when she received 1 dose of intravenous Unasyn and was sent home on oral Augmentin. She had a CAT scan of the face and neck was done at the time that was fairly unremarkable. She has been complaining of fever up to 103 at home with sweating and increasing pain and also increasing redness involving the left side of the face and now it is traversing towards the right side. She will have intravenous antibiotic and blood cultures and will be admitted to the hospital for observation. Allergies Allergy/AdvReac Type Severity Reaction Status Date / Time glatiramer (copolymer 1) Allergy Intermediate hives and Verified 08/24/23 10:32 rash at injection site latex Allergy Intermediate RASH Verified 08/24/23 10:32 mannitol Allergy Intermediate hives and Verified 08/24/23 10:32 rash at injection site Home Medications Medication Instructions Recorded Confirmed Type sertraline 100 mg tablet 100 mg PO HS 06/16/20 05/11/24 History vitamin C 500 mg-multivitamin with 3 tab PO DAILY PRN Cold Symptoms 06/16/20 05/11/24 History minerals chewable tablet (Emergen-C) clonazepam 0.5 mg tablet 0.5 mg PO TID PRN Other 10/08/22 05/11/24 History aspirin 81 mg tablet,delayed 81 mg PO QAM #30 tabs 10/11/22 05/11/24 Rx release multivitamin with folic acid 400 1 tab PO QAM #30 tabs 10/11/22 05/11/24 Rx mcg tablet (Daily-Shawn (with folic acid)) evolocumab 140 mg/mL subcutaneous 140 mg subcut UD 06/24/23 05/11/24 History pen injector (yuedina Arley) lisinopril 10 mg tablet 20 mg PO UD 06/24/23 05/11/24 History triamcinolone acetonide 0.1 % 1 applic topical UD 06/24/23 05/11/24 History topical cream acetaminophen 325 mg tablet 325 mg PO QID PRN Pain 08/13/23 05/11/24 History ibuprofen 200 mg tablet 200 mg PO Q6H PRN Pain 08/13/23 05/11/24 History metoprolol tartrate 25 mg tablet 25 mg PO HS 08/13/23 05/11/24 History rosuvastatin 10 mg tablet 10 mg PO UD 08/13/23 05/11/24 History ibuprofen 800 mg tablet 800 mg PO Q8H PRN pain #30 tabs 08/24/23 05/11/24 Rx oxycodone-acetaminophen 5 mg-325 1 tab PO Q4H PRN pain #10 tabs 08/24/23 05/11/24 Rx mg tablet (Percocet) oxycodone 5 mg tablet 5 mg PO Q6H PRN pain #15 tabs 05/07/24 05/11/24 Rx amoxicillin 875 mg-potassium 1 tab PO BID 05/11/24 05/11/24 History clavulanate 125 mg tablet hydrocodone 5 mg-acetaminophen 325 2 tab PO UD PRN pain 05/11/24 05/11/24 History mg tablet prednisone 10 mg tablet 10 mg PO DIRECTED 05/11/24 05/11/24 History Past Med/Surg History Problem List Cellulitis of face (Acute) Acute parotitis (Acute) Postop check Chronic cerebral ischemia Concussion Complicated migraine Hyperlipidemia Hypertension delivery delivered Multiple sclerosis affecting Cerebral aneurysm Premature rupture of membranes Encounter for pre-operative examination Multiple sclerosis asymptomatic off medications currently; neurology monitoring : diagnosed 9 years ago Psoriatic arthritis Abdominal pain RUQ abdominal pain Medical History Hx of concussion Depression Psoriatic arthritis History of COVID-19 (2021) no hosp; resolved Hx of chest pain (09/2022) r/t htn; follows w/ S Cardio Multiple sclerosis asymptomatic off medications currently; neurology monitoring Hyperlipidemia HTN (hypertension) Stroke-like symptoms (09/2022) r/t hypertensive emergency @ [facility] Hx MRSA infection (2011) hx-- wound upper thigh PCOS (polycystic ovarian syndrome) History of tuberculosis "childhood" - cervical lymph nodes removed; per patient, retesting subsequently negative Migraine Acid reflux stable Anxiety Osteoarthritis Intracranial aneurysm hx- repaired >>>2021 neurosurgery monitoring- "Cleared for delivery by whichever means the patient desires. No limitations" per neurosurgery 06/25/18 note but per patient, decision made for c/s to be safe Surgical History Hx of section Hx of cerebral aneurysm repair (2021) [facility] H/O colonoscopy History of open reduction and internal fixation (ORIF) procedure LEFT FIBULA [place] teeth extracted Family History Father Family history of diabetes mellitus Tremor Grandfather (Paternal) Family history of diabetes mellitus Uncle Family hx of colon cancer Grandmother (Maternal) Stomach cancer Brother Tremor Mother Cancer Social History Smoking Status: Never smoker Tobacco Type: Cigarettes Age Started Using Tobacco: 15; Age Quit Using Tobacco: 41; packs per day: 0.5; Second Hand Exposure: No; Do You Dip or Chew Tobacco: No; Hx Alcohol Use: No Hx Substance Use: No (hx medical card- no longer uses) Preferred Language: Irish Communication Ability: Effective 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 Beliefs That Will Affect Care: None marital status: Single Current Living Situation: Family and Significant Other current occupational status: employed current occupation: Director [employer] Feels Safe at Home: Yes Assistive Devices: Glasses Review of Systems Review of Systems: All systems reviewed and are unremarkable except as noted below Physical Exam Physical Exam: Lying in bed with acute distress secondary to facial pain and some nausea but no vomiting Constitutional: well developed, well nourished, + ill appearing and average body habitus Eyes: PERRL, conjunctivae normal, anicteric sclerae ENMT: external ear and nose normal, oropharynx normal slight redness involving the face Neck: mildly tender on palpation without significant adenopathy Respiratory: no respiratory distress Auscultation: lungs clear to auscultation bilaterally Cardiovascular: Rate/Rhythm: regular rate, regular rhythm and + tachycardic Heart Sounds: normal S1 and normal S2; no murmur Extremities: no edema Gastrointestinal (Abdomen): Inspection/Auscultation: normal bowel sounds; abdomen not distended Percussion/Palpation: abdomen soft; abdomen nontender Musculoskeletal: No acute arthritis involving any joint Neurologic: normal touch/pain/proprioception and moves all extremities; no focal motor deficits Psychiatric: A+Ox3, euthymic affect Lymphatic: no cervical or axillary lymphadenopathy Results & Data Results & Data Vital Signs (Past 12 Hours) Vital Signs Temp Pulse Resp BP Pulse Ox O2 Del Method 05/11/24 07:06 36.8 C 76 18 126/85 96 Room Air Laboratory Results Short CBC 05/11/24 Range/Units 07:54 WBC 5.81 (4.8-10.8) K/ul Hgb 14.8 (12.0-16.0) g/dl Hct 43.3 (37.0-47.0) % Plt Count 288 (130-400) K/uL Medications Administered Current Inpatient Medications Ampicillin Sodium/Sulbactam Sodium (Unasyn) 3,000 mg in 100 mls @ 200 mls/hr IV Q6H LAURA Stop: 05/18/24 08:29 Sodium Chloride (Nss) 1,000 mls @ 125 mls/hr IV .Q8H LAURA Stop: 05/12/24 08:29 Last Admin: 05/11/24 08:28 Dose: 125 mls/hr Ampicillin Sodium/Sulbactam Sodium (Unasyn) 3,000 mg in 100 mls @ 200 mls/hr IV ONE STA; Protocol Stop: 05/11/24 08:55 Code Status & VTE Plan VTE Prophylaxis Plan VTE Prophylaxis will be ordered: Yes
[2024-05-11] MEDS: AMPICILLIN/SULBACTAM SOD 3,000 MG/100 ML BAG IV STA (08:45)
[2024-05-11 08:51] LABS: Alanine Aminotransferase 41 U/L (7-52); Albumin Globulin Ratio 1.6 (0.9-2); Albumin Level 4.5 gm/dl (3.4-5.0); Alkaline Phosphatase 63 U/L (34-104); Anion Gap 7 (3-11); Aspartate Aminotransferase 40 U/L (13-39); BUN Creatinine Ratio 21.8 (10-20); Bilirubin,Total 0.5 mg/dl (0.2-1.0); Blood Urea Nitrogen 12 mg/dl (6-23); C Reactive Protein < 0.50 mg/dl (0-0.5); Calcium 9.4 mg/dl (8.6-10.3); Carbon Dioxide 24 mmol/L (21-32); Chloride 104 mmol/L (98-107); Creatinine Clr Calc Pharmacy 152.9 ml/min; Globulin 2.9 gm/dl (2.5-4.0); Glucose 119 mg/dl (70-99(Fasting)); Potassium 4.4 mmol/L (3.5-5.1); Sodium 135 mmol/L (136-145); Total Protein 7.4 gm/dl (6.0-8.3)
[2024-05-11] MEDS ORDERED: NON-FORMULARY MEDICATION (Vitamin C-Multivitamin-Mineral [Emergen-C] 500 mg Tablet,Chewabl PO PRN (10:17)
[2024-05-11] MEDS ORDERED: clonazePAM 0.5 MG TAB PO PRN (10:17)
[2024-05-11] MEDS ORDERED: TRIAMCINOLONE ACET 0.1% CR 15 GM TUBE TOP SCH (10:17)
[2024-05-11] MEDS: MULTIVITAMIN TAB PO SCH (10:45)
[2024-05-11] MEDS: HYDROCODONE/ACETAMOPHEN 5/325MG TAB PO PRN ×2 (10:45→16:41)
[2024-05-11] MEDS: ASPIRIN 81 MG ECTAB PO SCH (10:45)
[2024-05-11] MEDS: IBUPROFEN 800 MG TAB PO PRN (13:23)
--- NOTE | 2024-05-11 14:14 | Electrocardiogram Report ---
Test Reason : Blood Pressure : */* mmHG Vent. Rate : 61 BPM Atrial Rate : 61 BPM P-R Int : 150 ms QRS Dur : 92 ms QT Int : 380 ms P-R-T Axes : 78 69 65 degrees QTcB Int : 382 ms Normal sinus rhythm Normal ECG When compared with ECG of 07-May-2024 11:56, Nonspecific T wave abnormality no longer evident in Anterior leads Confirmed by Renetta Carlisle (Sandi) on 05/11/2024 2:14:18 PM Referred By: REFERRED SELF Confirmed By: Renetta Carlisle
[2024-05-11] MEDS: AMPICILLIN/SULBACTAM SOD 3,000 MG/100 ML BAG IV SCH (14:40)
[2024-05-11 19:47] VITALS: RESP 18
[2024-05-11] MEDS: ROSUVASTATIN CALCIUM 10 MG TAB PO SCH (20:51)
[2024-05-11] MEDS: lisinopril 20 MG TAB PO SCH (20:51)
[2024-05-11] MEDS: ACETAMINOPHEN 325 MG TAB PO PRN (20:51)
[2024-05-11] MEDS: METOPROLOL TARTRATE 25 MG TAB PO SCH (20:51)
[2024-05-11] MEDS: SERTRALINE HCL 100 MG TABLET PO SCH (20:51)
[2024-05-12 03:12] VITALS: TEMP 97.3
[2024-05-12 06:38] LABS: Basophils # (auto) 0.02 K/uL (0.00-0.20); Basophils % (auto) 0.3 %; Eosinophils # (auto) 0.21 K/uL (0.00-0.50); Eosinophils % (auto) 3.6 %; Hemoglobin 13.6 g/dl (12.0-16.0); Immature Granulocytes # (auto) 0.02 K/uL (0.01-0.20); Immature Granulocytes % (auto) 0.3 %; Lymphocytes # (auto) 2.66 K/uL (1.20-3.40); Mean Corpuscular Hemoglobin 31.6 pg (25.0-34.0); Mean Platelet Volume 10.1 fL (9.4-12.4); Monocytes # (auto) 0.38 K/uL (0.11-0.59); Monocytes % (auto) 6.4 %; Neutrophils # (auto) 2.62 K/uL (1.40-6.50); Neutrophils % (auto) 44.4 %; Platelet Count 259 K/uL (130-400); RDW Standard Deviation 41.4 fL (36.4-46.3); White Blood Count 5.91 K/ul (4.8-10.8)
[2024-05-12 07:02] LABS: BUN Creatinine Ratio 19.4 (10-20); Calcium 8.9 mg/dl (8.6-10.3); Creatinine Clr Calc Pharmacy 116.8 ml/min; Potassium 4.8 mmol/L (3.5-5.1)
[2024-05-12 11:12] VITALS: O2SAT 97
--- NOTE | 2024-05-12 12:08 | Hospitalist Progress Note ---
Date of Service May 12, 2024 Assessment & Plan (1) Cellulitis of face: Plan: Left facial swelling and redness for about 10 days Failed outpatient treatment with Augmentin Spreading cellulitis involving whole of the face and is spreading from left to right side Started on intravenous Unasyn and will be admitted for observation Blood cultures were taken Questionable parotitis and she will be given adequate hydration to prevent further complication with parotitis She has been much better with resolution of the redness of the face Minimal swelling and tenderness supra parotid region and does not have any enlarged cervical neck glands on palpation She will be discharged this afternoon on oral Keflex as she does not like to continue Augmentin as an outpatient (2) Hypertension: Plan: Blood pressure remains stable Will continue current medications Her blood pressure was noted to be low this morning but now it is catching up (3) Cerebral aneurysm: Plan: History of cerebral aneurysm without any acute issues now (4) Multiple sclerosis: Plan: History of multiple sclerosis affecting left leg mainly Not having any issues at this time and has not been taking medications for some time Does not have any flareup of MS Steroid is not indicated (5) Hyperlipidemia: Plan: Continue statin Other significant medical conditions remained stable and appropriate medications will be continued for those DVT prophylaxis SCDs for now and advised to ambulate CODE STATUS Full Admission and Anticipated Discharge Date Admission Date: May 11, 2024 Subjective 05/11/2024 Patient is seen and examined at bedside Headache better today Reports ongoing chronic abdominal pain associated with cramps, inconsistent bowel movements Also reports pelvic discomfort No recurrence of chest pain Patient request GI evaluation No other complaints 05/12/2024 The patient was seen and examined in medical telemetry unit She has been feeling much better and complains of minimal pain in the left face Redness is resolved and does not have any headache and no neck stiffness She is afebrile and ready to be discharged Review of Systems Review of Systems: All systems reviewed and are unremarkable except as noted below Physical Exam Physical Exam: Lying in bed with acute distress secondary to facial pain and some nausea but no vomiting Constitutional: well developed, well nourished, + ill appearing and average body habitus Eyes: PERRL, conjunctivae normal, anicteric sclerae ENMT: external ear and nose normal, oropharynx normal Respiratory: no respiratory distress Auscultation: lungs clear to auscultation bilaterally Cardiovascular: Rate/Rhythm: regular rate, regular rhythm and + tachycardic Heart Sounds: normal S1 and normal S2; no murmur Extremities: no edema Gastrointestinal (Abdomen): Inspection/Auscultation: normal bowel sounds; abdomen not distended Percussion/Palpation: abdomen soft; abdomen nontender Skin: left and to some extent bilateral facial swelling and redness have resolved Neurologic: normal touch/pain/proprioception and moves all extremities; no focal motor deficits Psychiatric: A+Ox3, euthymic affect Lymphatic: no cervical or axillary lymphadenopathy Results & Data Results & Data Vital Signs (Past 12 Hours) Vital Signs Temp Pulse Pulse Resp BP BP Pulse Ox 05/12/24 11:11 36.3 C L 61 18 95/60 L 97 05/12/24 09:38 63 108/64 05/12/24 07:09 36.3 C L 55 L 18 85/57 L 95 05/12/24 07:00 65 05/12/24 02:47 36.3 C L 58 L 18 97/62 L 94 O2 Del Method 05/12/24 11:11 Room Air 05/12/24 09:38 05/12/24 07:09 Room Air 05/12/24 07:00 05/12/24 02:47 Room Air Laboratory Results Short CBC 05/12/24 Range/Units 06:01 WBC 5.91 (4.8-10.8) K/ul Hgb 13.6 (12.0-16.0) g/dl Hct 40.0 (37.0-47.0) % Plt Count 259 (130-400) K/uL BMP 05/12/24 06:01 Sodium 136 Potassium 4.8 Chloride 105 Carbon Dioxide 28 BUN 14 Creatinine 0.72 Glucose 103 H Calcium 8.9 Medications Administered Current Inpatient Medications Acetaminophen (Acetaminophen 325 Mg Tab) 325 mg PO QID PRN PRN Reason: Pain Stop: 06/10/24 10:16 Last Admin: 05/12/24 12:32 Dose: 325 mg Hydrocodone Bitart/Acetaminophen (Hydrocodone/Acetamophen 5/325mg Tab) 2 tab PO Q6H PRN PRN Reason: pain Stop: 05/25/24 10:16 Last Admin: 05/12/24 09:09 Dose: 2 tab Aspirin (Aspirin 81 Mg Ectab) 81 mg PO QAM LAURA Stop: 06/10/24 10:16 Last Admin: 05/12/24 08:32 Dose: 81 mg Cephalexin HCl (Cephalexin 500 Mg Cap) 500 mg PO QID [facility]; Protocol Stop: 05/19/24 12:59 Clonazepam (Clonazepam 0.5 Mg Tab) 0.5 mg PO TID PRN PRN Reason: Other Stop: 06/10/24 10:16 Ampicillin Sodium/Sulbactam Sodium (Unasyn) 3,000 mg in 100 mls @ 200 mls/hr IV Q6H LAURA Stop: 05/18/24 14:29 Last Infusion: 05/12/24 09:10 Dose: Infused Ibuprofen (Ibuprofen 800 Mg Tab) 800 mg PO Q8H PRN PRN Reason: pain Stop: 06/10/24 10:16 Last Admin: 05/12/24 08:32 Dose: 800 mg Lisinopril (Lisinopril 20 Mg Tab) 20 mg PO [facility] Stop: 06/10/24 20:59 Last Admin: 05/11/24 20:51 Dose: 20 mg Metoprolol Tartrate (Metoprolol Tartrate 25 Mg Tab) 25 mg PO [facility] Stop: 06/10/24 20:59 Last Admin: 05/11/24 20:51 Dose: 25 mg Multivitamins (Multivitamin Tab) [facility] Stop: 06/10/24 10:16 Last Admin: 05/12/24 08:32 Dose: 1 tab Rosuvastatin Calcium (Rosuvastatin Calcium 10 Mg Tab) 10 mg PO [facility] Stop: 06/10/24 20:59 Last Admin: 05/11/24 20:51 Dose: 10 mg Sertraline HCl (Sertraline Hcl 100 Mg Tablet) 100 mg PO [facility] Stop: 06/10/24 20:59 Last Admin: 05/11/24 20:51 Dose: 100 mg
[2024-05-12] MEDS: cephALEXin 500 MG CAP PO SCH (13:07)
[2024-05-12] MEDS: HYDROmorphone INJ 0.5 MG/0.5 ML SYR IV STA (13:14)
[2024-05-12 14:00] LABS: Adenovirus PCR Not Detected (NotDetected); Bordetella parapertussis PCR Not Detected (NotDetected); Bordetella pertussis PCR Not Detected (NotDetected); Chlamydia pneumoniae PCR Not Detected (NotDetected); Coronavirus 229E PCR Not Detected (NotDetected); Coronavirus CoV-2 (COVID19)PCR Not Detected (NotDetected); Coronavirus HKU1 PCR Not Detected (NotDetected); Coronavirus NL63 PCR Not Detected (NotDetected); Coronavirus OC43PCR Not Detected (NotDetected); Human Metapneumovirus PCR Not Detected (NotDetected); Influenza A PCR Not Detected (NotDetected); Influenza B PCR Not Detected (NotDetected); Mycoplasma pneumoniae PCR Not Detected (NotDetected); Parainfluenza Virus 1 PCR Not Detected (NotDetected); Parainfluenza Virus 2 PCR Not Detected (NotDetected); Parainfluenza Virus 3 PCR Not Detected (NotDetected); Parainfluenza Virus 4 PCR Not Detected (NotDetected); Respiratory Syncytial VirusPCR Not Detected (NotDetected); Rhinovirus/Enterovirus PCR DETECTED (NotDetected)
[2024-05-12 14:32] VITALS: BP 108/64; PULSE 65
--- NOTE | 2024-05-12 19:45 | Discharge Summary ---
Date of Service May 12, 2024 Admission HPI Per Admitting Provider she is 43-year-old female with significant past medical history of hypertension, hyperlipidemia, multiple sclerosis, cerebral aneurysm, migraine, history of CLL, anxiety/mood disorders apparently has been complaining of left facial redness and swelling for the last 6 to 10 days. She was getting oral Augmentin and was evaluated in the emergency room on when she received 1 dose of intravenous Unasyn and was sent home on oral Augmentin. She had a CAT scan of the face and neck was done at the time that was fairly unremarkable. She has been complaining of fever up to 103 at home with sweating and increasing pain and also increasing redness involving the left side of the face and now it is traversing towards the right side. She will have intravenous antibiotic and blood cultures and will be admitted to the hospital for observation. Admission Exam Per Admitting Provider Physical Exam: Lying in bed with acute distress secondary to facial pain and some nausea but no vomiting Constitutional: well developed, well nourished, + ill appearing and average body habitus Eyes: PERRL, conjunctivae normal, anicteric sclerae ENMT: external ear and nose normal, oropharynx normal slight redness involving the face Neck: mildly tender on palpation without significant adenopathy Respiratory: no respiratory distress Auscultation: lungs clear to auscultatio n bilaterally Cardiovascular: Rate/Rhythm: regular rate, regular rhythm and + tachycardic Heart Sounds: normal S1 and normal S2; no murmur Extremities: no edema Gastrointestinal (Abdomen): Inspection/Auscultation: normal bowel sounds; abdomen not distended Percussion/Palpation: abdomen soft; abdomen nontender Musculoskeletal: No acute arthritis involving any joint Neurologic: normal touch/pain/proprioception and moves all extremities; no focal motor deficits Psychiatric: A+Ox3, euthymic affect Lymphatic: no cervical or axillary lymphadenopathy Principal Diagnosis Left facial cellulitis,Entero-Rhinovirus infection, history of multiple sclerosis Discharge Exam Lying in bed with acute distress secondary to facial pain and some nausea but no vomiting Constitutional well developed, well nourished, + ill appearing and average body habitus Eyes PERRL, conjunctivae normal, anicteric sclerae ENMT external ear and nose normal, oropharynx normal Respiratory no respiratory distress Auscultation: lungs clear to auscultation bilaterally Cardiovascular Rate/Rhythm: regular rate, regular rhythm and + tachycardic Heart Sounds: normal S1 and normal S2; no murmur Extremities: no edema Gastrointestinal (Abdomen) Inspection/Auscultation: normal bowel sounds; abdomen not distended Percussion/Palpation: abdomen soft; abdomen nontender Neurologic normal touch/pain/proprioception and moves all extremities; no focal motor deficits Psychiatric A+Ox3, euthymic affect Lymphatic no cervical or axillary lymphadenopathy Discharge Data Allergies Allergy/AdvReac Type Severity Reaction Status Date / Time glatiramer (copolymer 1) Allergy Intermediate hives and Verified 08/24/23 10:32 rash at injection site latex Allergy Intermediate RASH Verified 08/24/23 10:32 mannitol Allergy Intermediate hives and Verified 08/24/23 10:32 rash at injection site Consultations 05/11/24 07:54 ED Decision to Admit Stat Hospital Course (1) Cellulitis of face: Left facial swelling and redness for about 10 days Failed outpatient treatment with Augmentin Spreading cellulitis involving whole of the face and is spreading from left to right side Started on intravenous Unasyn and will be admitted for observation Blood cultures were taken Questionable parotitis and she will be given adequate hydration to prevent further complication with parotitis She has been much better with resolution of the redness of the face Minimal swelling and tenderness supra parotid region and does not have any enlarged cervical neck glands on palpation She will be discharged this afternoon on oral Keflex as she does not like to continue Augmentin as an outpatient (2) Hypertension: Blood pressure remains stable Will continue current medications Her blood pressure was noted to be low this morning but now it is catching up (3) Cerebral aneurysm: History of cerebral aneurysm without any acute issues now (4) Multiple sclerosis: History of multiple sclerosis affecting left leg mainly Not having any issues at this time and has not been taking medications for some time Does not have any flareup of MS Steroid is not indicated (5) Hyperlipidemia: Continue statin Other significant medical conditions remained stable and appropriate medications will be continued for those DVT prophylaxis SCDs for now and advised to ambulate CODE STATUS Full Total Time Total Time Spent Total Time Spent (In Minutes): 35 minutes Discharge Plan Discharge Items Patient Disposition: Home - Self-Care Reason For Visit: WORSENING FACIAL CELLULITIS Discharge Diagnosis: Left facial cellulitis,Entero-Rhinovirus infection, history of multiple sclerosis Condition on Discharge: Good Activity: Resume your previous activity Non-emergency contact: Primary Care Provider Call non-emergency contact if: you have any medication questions and your symptoms worsen Follow-up/Referrals: Clarice Vail MD [Primary Care Provider] - (Date & Time 05/19/2024 11:00 AM Provider: Clarice Vail MD Family Practice, [facility] ) Diet: Heart Healthy Addtl Attending Provider Instructions: Please finish the course of antibiotic Try to drink more fluid You can try [id number] probiotics as long as you are taking antibiotic Please keep appointment with your healthcare providers Pending Studies at Discharge: No Stand-Alone Forms: [facility] [employer], Smoking Cessation Medications and DC Order Prescriptions: New cephalexin 500 mg Capsule 500 mg PO QID Qty: 20 0RF Continued sertraline 100 mg tablet 100 mg PO HS Rx Instructions: last filled 01/31 90 day supply Emergen-C 500 mg Tablet,Chewable 3 tab PO DAILY PRN (Reason: Cold Symptoms) Rx Instructions: otc unable to verify clonazepam 0.5 mg tablet 0.5 mg PO TID MDD 3 TABLETS PRN (Reason: Other) multivitamin with folic acid [Daily-Shawn (with folic acid)] 400 mcg Tablet 1 tab PO QAM Qty: 30 0RF Rx Instructions: otc unable to verify aspirin 81 mg Tablet,Delayed Release (Dr/Ec) 81 mg PO QAM Qty: 30 0RF Rx Instructions: otc unable to verify triamcinolone acetonide 0.1 % cream 1 applic TOPICAL UD Rx Instructions: 1 emma topical bid. last filed 05/15/23 30 day Repatha SureClick 140 mg/mL Pen Injector 140 mg SUBCUT UD Rx Instructions: 140mg subcut q 2 weeks. No fill history unable to verify lisinopril 10 mg tablet 20 mg PO UD Rx Instructions: original: 20 mg po hs. Per fill history 20 mg po bid acetaminophen 325 mg Tablet 325 mg PO QID PRN (Reason: Pain) Rx Instructions: otc unable to verify ibuprofen 200 mg Tablet 200 mg PO Q6H PRN (Reason: Pain) Rx Instructions: otc unable to verify rosuvastatin 10 mg Tablet 10 mg PO UD Rx Instructions: 10 mg po hs. last filled 10/28/23 90 day supply metoprolol tartrate 25 mg Tablet 25 mg PO HS ibuprofen 800 mg tablet 800 mg PO Q8H PRN (Reason: pain) Qty: 30 0RF Rx Instructions: last filled 08/24/23 10 day supply #30 oxycodone-acetaminophen [Percocet] 5-325 mg tablet 1 tab PO Q4H PRN (Reason: pain) Qty: 10 0RF Rx Instructions: last filled 08/24/23 4 day supply #20 oxycodone 5 mg tablet 5 mg PO Q6H PRN (Reason: pain) Qty: 15 0RF Rx Instructions: filled 05/07/24 4 day supply prednisone 10 mg tablet 10 mg PO DIRECTED hydrocodone-acetaminophen 5-325 mg tablet 2 tab PO UD PRN (Reason: pain) Rx Instructions: last filled 07/27/23 15 day supply #60 initial script max of 6 tabs per day Discontinued amoxicillin-pot clavulanate 875-125 mg tablet 1 tab PO BID Discharge Orders: Discharge Order (Routine); Ordered 05/12/24 Ordered By: Gabriella Carey Admission Data Admit Date/Time: 05/11/24 08:19 Attending Provider: Gabriella Carey Admit Provider: Gabriella Carey Primary Care Provider: Clarice Vail Other Providers: Gabriella Carey Other Interventions: Discharge Summary Assessment (RN) Last Done: 05/12/24 14:31
== END 2024-05-12 14:54 | disposition home or self-care (01) ==
LOC: 2N 07:02 → ED 07:02 → 2N 09:26